=== PATIENT | female | born 1955 | race Caucasian/White ===

== ENCOUNTER → 2018-04-27 | Outpatient (CLI) | payer OTHER ==
--- NOTE | 2018-04-27 10:25 | MR ---
EXAMINATION TYPE: MR lumbar spine wo con DATE OF EXAM: 04/27/2018 COMPARISON: NONE HISTORY: BACK PAIN, LT LEG NEUROPATHY TECHNIQUE: T1 and T2 axial and sagittal images of the lumbar spine are submitted. FINDINGS: There is no abnormal signal seen within the visualized spinal cord or paraspinal soft tissu es. At L1-2 there is vertebral body hemangioma of L2. There is broad-based right paracentral and lateral disc bulging with mild effacement of thecal sac and mild right-sided foraminal encroachment. No Canal stenosis. At L2-3 there is vertebral body hemangioma of L3. There is disc desiccation and facet arthropathy but no canal stenosis. Neural foramina remain patent. At L3-4 there is disc desiccation with circumferential disc bulging greater laterally to left with mi ld left foraminal encroachment. Facet arthropathy and ligamentum flavum hypertrophy noted. At L4-5 there is grade 1 anterolisthesis with severe facet arthropathy, ligamentum flavum hypertrophy and circumferential disc bulging resulting in severe canal stenosis and moderate foraminal encroachm ent greater on the right At L5-S1 there is severe facet arthropathy. Diminutive spinal canal. No foraminal encroachment. No fo rivera herniation. Large hemangioma of the S1 segment. Lateral recess stenosis noted bilaterally. There is multilevel mild degenerative disc disease and hypertrophic spurring. IMPRESSION: 1. Multilevel degenerative disc disease and facet arthropathy with grade 1 anterolisthesis L4 on L5 r esulting in severe canal stenosis and bilateral foraminal encroachment. 2. Hypertrophic changes and disc bulging L1-2 and L3-4 result in foraminal encroachment as discussed above.
== END | disposition home or self-care (01) ==
LOC: RADMRIMAIN 09:27
PROVIDERS: ATTEND Internal Medicine
DX: M48.061 Spinal stenosis, lumbar region without neurogenic claudication (principal); M43.16 Spondylolisthesis, lumbar region; M51.26 Other intervertebral disc displacement, lumbar region; M51.36 Other intervertebral disc degeneration, lumbar region; M46.96 Unspecified inflammatory spondylopathy, lumbar region; M53.86 Other specified dorsopathies, lumbar region
CPT/HCPCS: 72148

== ENCOUNTER 2019-08-02 14:49 | Inpatient (IN) | payer OTHER ==
[2019-08-02] MEDS ORDERED: NITROGLYCERIN OINT 1 INCH/GM PACKET TOPICAL STA (15:39)
[2019-08-02] MEDS ORDERED: ASPIRIN 81 MG PO STA (15:39)
--- NOTE | 2019-08-02 15:44 | ED ---
General Adult HPI - General Chief complaint: Chest Pain Stated complaint: Chest Pain, SOB Time Seen by Provider: 08/02/19 15:00 Source: patient, RN notes reviewed, old records reviewed Mode of arrival: ambulatory Limitations: no limitations - History of Present Illness Initial comments: This is a 63-year-old female presents emergency department with past medical history significant for coronary artery stent. Patient also has a history of high blood pressure and high cholesterol. Tums in today because she's been experiencing chest pain or shortness of breath anytime she exerts of per patient states been ongoing for a couple of weeks. Patient states it feels exactly like it did before when she needed a stent. Patient states she went to her primary medical care doctor's office and they told to come in here immediately. Patient denies any chest pain currently. Patient denies any recent fever chills or cough. Patient denies any lightheadedness dizziness or near syncopal episode. Patient denies any numbness or weakness. Patient denies any abdominal pain patient denies nausea vomiting diarrhea. Patient denies any swelling to the legs or calf tenderness. Patient denies any recent injury or trauma. - Related Data Home Medications Medication Instructions Recorded Confirmed Vortioxetine Hydrobromide 10 mg PO DAILY 01/03/15 11/26/15 [Trintellix] Simvastatin [Zocor] 20 mg PO DAILY 06/09/15 11/26/15 Famotidine [Pepcid] 20 mg PO DAILY 11/21/15 11/26/15 INSULIN LISPRO (HumaLOG) [HumaLOG] 0 units SQ TID PRN 11/21/15 11/26/15 Ibuprofen [Motrin] 800 mg PO DIRECTED PRN 11/21/15 11/26/15 Insulin Lispro Protamin/Lispro 20 unit SQ BID-W/MEALS 11/21/15 11/26/15 [humaLOG Mix 75-25 Kwikpen] Lisinopril-Hctz 10-12.5 mg 1 tab PO DAILY 11/21/15 11/26/15 [Zestoretic 10-12.5] Metamucil Powder 1 dose PO DAILY 11/21/15 11/26/15 Naproxen Sodium [Aleve] 220 mg PO BID PRN 11/21/15 11/26/15 Rescue Inhaler (Unknown Name) 1 dose INHALATION DIRECTED PRN 11/21/15 11/26/15 Previous Rx's Medication Instructions Recorded Aspirin 325 mg PO DAILY #30 tab 01/09/15 Atenolol [Tenormin] 100 mg PO BID tab 06/12/15 Allergies Allergy/AdvReac Type Severity Reaction Status Date / Time venom-honey bee Allergy Unknown Rash/Hives Verified 08/02/19 14:57 [bee venom (honey bee)] Review of Systems ROS Statement: Those systems with pertinent positive or pertinent negative responses have been documented in the HPI. ROS Other: All systems not noted in ROS Statement are negative. Past Medical History Past Medical History: Coronary Artery Disease (CAD), Chest Pain / Angina, Diabetes Mellitus, Hyperlipidemia, Hypertension, Osteoarthritis (OA) Additional Past Medical History / Comment(s): SEASONAL ALLERGIES, STATES SHE WAS TOLD START OF CIRRHOSIS & PANCREATITIS & QUIT DRINKING ALCOHOL., STATES FREQUENT DIARRHEA, CRAMPING WITH GAS PAINS. History of Any Multi-Drug Resistant Organisms: None Reported Past Surgical History: Appendectomy, Heart Catheterization With Stent, Hysterectomy, Tonsillectomy Additional Past Surgical History / Comment(s): 01/08/15 PTCA with stent placement. Past Anesthesia/Blood Transfusion Reactions: No Reported Reaction Additional Past Anesthesia/Blood Transfusion Reaction / Comment(s): Pt has never recieved blood. Date of Last Stent Placement:: 01/08/15 Past Psychological History: Anxiety, Depression Smoking Status: Never smoker Past Alcohol Use History: Occasional Past Drug Use History: Marijuana - Past Family History Father Additional Family Medical History / Comment(s): HEART DISEASE Mother Family Medical History: Cancer Additional Family Medical History / Comment(s): UTERINE Brother(s) Family Medical History: Cancer Additional Family Medical History / Comment(s): BLADDER General Exam - General Exam Comments Initial Comments: GENERAL: Patient is well-developed and well-nourished. Patient is nontoxic and well- hydrated and is in no acute distress. ENT: Neck is soft and supple. No significant lymphadenopathy is noted. Oropharynx is clear. Moist mucous membranes. Neck has full range of motion without eliciting any pain. EYES: The sclera were anicteric and conjunctiva were pink and moist. Extraocular movements were intact and pupils were equal round and reactive to light. Eyelids were unremarkable. PULMONARY: Unlabored respirations. Good breath sounds bilaterally. No audible rales rhonchi or wheezing was noted. CARDIOVASCULAR: There is a regular rate and rhythm without any murmurs gallops or rubs. ABDOMEN: Soft and nontender with normal bowel sounds. No palpable organomegaly was noted. There is no palpable pulsatile mass. SKIN: Skin is clear with no lesions or rashes and otherwise unremarkable. NEUROLOGIC: Patient is alert and oriented x3. Cranial nerves II through XII are grossly intact. Motor and sensory are also intact. Normal speech, volume and content. Symmetrical smile. MUSCULOSKELETAL: Normal extremities with adequate strength and full range of motion. No lower extremity swelling or edema. No calf tenderness. LYMPHATICS: No significant lymphadenopathy is noted PSYCHIATRIC: Normal psychiatric evaluation. Limitations: no limitations Course Vital Signs 08/02/19 08/02/19 14:55 15:50 Temperature 97.5 F L Pulse Rate 73 73 Respiratory 20 18 Rate Blood Pressure 168/68 139/79 O2 Sat by Pulse 99 97 Oximetry Medical Decision Making - Medical Decision Making EKG shows a normal sinus rhythm at 72 bpm KS interval 180 QRSs 80 QT interval is 436 QTC is 477. Patient's EKG shows no ST segment elevation or depression or T wave abnormalities are noted. Patient's chest x-ray showed no acute normalities. Patient's hemoglobin was 9.1. I will back in to reinterview the patient she stated she did have some black stools recently. So I did a rectal exam. I spoke with Dr. Painter she agreed to admit the patient admitted the patient I held heparin secondary to black stools and a low hemoglobin. - Lab Data Result diagrams: 08/02/19 15:40 08/02/19 15:40 Lab Results 08/02/19 08/02/19 08/02/19 Range/Units 15:40 15:40 15:40 WBC 3.6 L (3.8-10.6) k/uL RBC 3.11 L (3.80-5.40) m/uL Hgb 9.1 L (11.4-16.0) gm/dL Hct 28.0 L (34.0-46.0) % MCV 90.0 (80.0-100.0) fL MCH 29.3 (25.0-35.0) pg MCHC 32.5 (31.0-37.0) g/dL RDW 14.2 (11.5-15.5) % Plt Count 172 (150-450) k/uL Hypochromasia Marked Poikilocytosis Marked PT 9.7 (9.0-12.0) sec INR 0.9 (<1.2) APTT 22.2 (22.0-30.0) sec Sodium 139 (137-145) mmol/L Potassium 4.3 (3.5-5.1) mmol/L Chloride 107 (98-107) mmol/L Carbon Dioxide 22 (22-30) mmol/L Anion Gap 10 mmol/L BUN 21 H (7-17) mg/dL Creatinine 0.75 (0.52-1.04) mg/dL Est GFR (CKD-EPI)AfAm >90 (>60 ml/min/1.73 sqM) Est GFR (CKD-EPI)NonAf 85 (>60 ml/min/1.73 sqM) Glucose 183 H (74-99) mg/dL Calcium 9.1 (8.4-10.2) mg/dL Magnesium 1.9 (1.6-2.3) mg/dL Total Bilirubin 0.6 (0.2-1.3) mg/dL AST 61 H (14-36) U/L ALT 41 (9-52) U/L Alkaline Phosphatase 70 (38-126) U/L Troponin I (0.000-0.034) ng/mL Total Protein 6.4 (6.3-8.2) g/dL Albumin 3.9 (3.5-5.0) g/dL 08/02/19 Range/Units 15:40 WBC (3.8-10.6) k/uL RBC (3.80-5.40) m/uL Hgb (11.4-16.0) gm/dL Hct (34.0-46.0) % MCV (80.0-100.0) fL MCH (25.0-35.0) pg MCHC (31.0-37.0) g/dL RDW (11.5-15.5) % Plt Count (150-450) k/uL Hypochromasia Poikilocytosis PT (9.0-12.0) sec INR (<1.2) APTT (22.0-30.0) sec Sodium (137-145) mmol/L Potassium (3.5-5.1) mmol/L Chloride (98-107) mmol/L Carbon Dioxide (22-30) mmol/L Anion Gap mmol/L BUN (7-17) mg/dL Creatinine (0.52-1.04) mg/dL Est GFR (CKD-EPI)AfAm (>60 ml/min/1.73 sqM) Est GFR (CKD-EPI)NonAf (>60 ml/min/1.73 sqM) Glucose (74-99) mg/dL Calcium (8.4-10.2) mg/dL Magnesium (1.6-2.3) mg/dL Total Bilirubin (0.2-1.3) mg/dL AST (14-36) U/L ALT (9-52) U/L Alkaline Phosphatase (38-126) U/L Troponin I <0.012 (0.000-0.034) ng/mL Total Protein (6.3-8.2) g/dL Albumin (3.5-5.0) g/dL Disposition Clinical Impression: Unstable angina pectoris, Anemia Disposition: ADMITTED IP TO THIS HOSP Referrals: Josemanuel Brady DO [Primary Care Provider] - 1-2 days Time of Disposition: 16:51
[2019-08-02 15:58] LABS: HGB 9.1 gm/dL (11.4-16.0); Hypochromasia Marked; MCH 29.3 pg (25.0-35.0); MCHC 32.5 g/dL (31.0-37.0); Platelet Count 172 k/uL (150-450); Poikilocytosis Marked; RBC 3.11 m/uL (3.80-5.40); RDW 14.2 % (11.5-15.5); WBC 3.6 k/uL (3.8-10.6)
[2019-08-02 16:06] LABS: INR 0.9 (<1.2)
[2019-08-02 16:07] LABS: Partial Thromboplastin Time 22.2 sec (22.0-30.0); Prothrombin Time 9.7 sec (9.0-12.0)
[2019-08-02 16:08] LABS: ALT 41 U/L (9-52); AST 61 U/L (14-36); African American GFR (CKD) >90 (>60 ml/min/1.73 sqM); Albumin 3.9 g/dL (3.5-5.0); Alkaline Phosphatase 70 U/L (38-126); Anion Gap 10 mmol/L; Blood Urea Nitrogen 21 mg/dL (7-17); Calcium 9.1 mg/dL (8.4-10.2); Carbon Dioxide 22 mmol/L (22-30); Chloride 107 mmol/L (98-107); Glucose 183 mg/dL (74-99); Magnesium 1.9 mg/dL (1.6-2.3); Potassium 4.3 mmol/L (3.5-5.1); Sodium 139 mmol/L (137-145); Total Bilirubin 0.6 mg/dL (0.2-1.3); Total Protein 6.4 g/dL (6.3-8.2)
--- NOTE | 2019-08-02 16:19 | XR ---
EXAMINATION TYPE: XR chest 2V DATE OF EXAM: 08/02/2019 COMPARISON: NONE HISTORY: Chest pain and increasing shortness of breath with exercise. TECHNIQUE: Frontal and lateral views of the chest are obtained. FINDINGS: There is some chronic parenchymal change without suspicious focal air space opacity, pleur al effusion, or pneumothorax seen. The cardiac silhouette size is enlarged with atherosclerotic and ectatic aorta. The osseous structures are demineralized. Underlying scoliosis is present. IMPRESSION: Cardiomegaly and chronic parenchymal change without acute pulmonary process.
[2019-08-02 17:05] LABS: Eosinophils # (M) 0.11 k/uL (0-0.7); Lymphocytes # (M) 1.01 k/uL (1.0-4.8); Monocytes # (M) 0.25 k/uL (0-1.0); Neutrophils % (M) 62 %; Nucleated Red Blood Cells 0 /100 WBC (0-0); Total Cells Counted 100
[2019-08-02] MEDS ORDERED: NITROGLYCERIN SL TABS 0.4 MG TAB SUBLINGUAL PRN (17:07)
[2019-08-02] MEDS ORDERED: NALOXONE 0.4 MG/ML 1 ML VIAL IV PRN (18:02)
[2019-08-02] MEDS ORDERED: ACETAMINOPHEN TAB 325 MG TAB PO PRN (18:02)
[2019-08-02] MEDS ORDERED: HEPARIN SODIUM,PORCINE 5,000 UNIT/ML 1 ML VIAL IV STA (18:02)
[2019-08-02] MEDS ORDERED: HYDROcodone/APAP 5-325MG 1 EACH TAB PO PRN (18:02)
[2019-08-02] MEDS ORDERED: ONDANSETRON 4 MG/2 ML VIAL IVP PRN (18:02)
[2019-08-02] MEDS ORDERED: ALBUTEROL NEBULIZED 2.5 MG/3 ML INHALATION PRN (18:04)
[2019-08-02] MEDS ORDERED: DICLOFENAC SODIUM GEL 100 GM TUBE TOPICAL PRN (18:04)
[2019-08-02] MEDS ORDERED: HEPARIN SOD,PORK IN 0.45% NACL 25,000 UNIT in 0.45% NACL 1 250ML.BAG IV SCH (18:15)
--- NOTE | 2019-08-02 18:27 | P.HPIM ---
History of Present Illness H&P Date: 08/02/19 Chief Complaint: Chest pain Patient is a 63 yo CF with a past medical history of atherosclerotic coronary artery disease with prior stent to LAD in 2015, hypertension, diabetes that is brittle with the last known hemoglobin A1c near 7 per patient, dyslipidemia, arthritis, and COPD presented to the ER at the direction of her primary care provider, Dr. Brady, for chest pain. In the emergency department she underwent an extensive evaluation. On arrival she was slightly hypertensive with a blood pressure 168/68. Initial laboratory analysis showed hemoglobin of 9.1, white blood cell count 3.6, and a negative troponin. EKG shows normal sinus rhythm at a rate of [address]-T wave changes. R1 80, QRS 80, QTC 477. She was placed in observation for unstable angina. She was started on a heparin drip, aspirin, and her statin and beta mirlande were winsome nued. Cardiology was consulted. Patient seen and examined at bedside in the emergency department. She reports that over the last several months she has been having chest pain and shortness of breath with exertion. This has been increasing in nature. Over the last 1 week it has gotten significantly more frequent and intense. She reports that with exertion she starts becoming exceedingly short of breath and then has a bandlike feeling around her chest that is centered in the left upper chest. She states that she is getting this with her simple activities of daily living such as vacuuming or doing dishes. During these episodes she becomes short of breath, has chest pain, feels anxious, and has a racing heart. During some of the episodes she will become diaphoretic, anxious, and dizzy. She has chronic numbness and tingling in her left upper extremity due to her prior back injury and she is unable to definitively say whether or not this has worsened. She states she treats this by resting and using meditation practices. She also reports that sometimes at night when she lays flat she feels short of breath. She denies any recent lower extremity edema. The last time she saw diesel instructor was approximately 4 years ago after her heart For a one-time follow-up. She reports of the chest pain lasts until she is able to sit down and meditate. She also reports that 2-3 times over the last 60 days she has had episodes of abdominal cramping with constipation. When she takes that she has noted black stools twice. She's been using intermittently milk of magnesia her when she has constipation but then Pepto-Bismol for when she has diarrhea. She thinks she has irritable bowel syndrome as she frequently is offloading between constipation and diarrhea. She denies any bright red blood per rectum and she has not had any of these episodes in the last week. She reports that she has seen Dr. Toussaint in the past and had a colonoscopy which was good. Today when she saw Dr. Brady she was not asking for referrals to both cardiology and GI but he asked her to come to the emergency department. She reports that her father had heart disease and early age but is unsure if he had actual heart attack. She reports that her mother was diagnosed with heart disease at age 94. She reports a family history of Crohn's disease. Review of Systems Pertinent positives and negatives as discussed in HPI, a complete review of systems was performed and all other systems are negative. Past Medical History Past Medical History: Coronary Artery Disease (CAD), Chest Pain / Angina, Diabetes Mellitus, Hyperlipidemia, Hypertension, Osteoarthritis (OA) Additional Past Medical History / Comment(s): SEASONAL ALLERGIES, STATES SHE WAS TOLD START OF CIRRHOSIS, PANCREATITIS, STATES FREQUENT DIARRHEA, CRAMPING WITH GAS PAINS. History of Any Multi-Drug Resistant Organisms: None Reported Past Surgical History: Appendectomy, Heart Catheterization With Stent, Hysterectomy, Tonsillectomy Additional Past Surgical History / Comment(s): 01/08/15 PTCA with stent placement. Past Anesthesia/Blood Transfusion Reactions: No Reported Reaction Additional Past Anesthesia/Blood Transfusion Reaction / Comment(s): Pt has never recieved blood. Date of Last Stent Placement:: 01/08/15 Past Psychological History: Anxiety, Depression Smoking Status: Never smoker Past Alcohol Use History: Occasional Additional History: Lives with her boyfriend, no assistive devices at baseline. - Past Family History Father Additional Family Medical History / Comment(s): HEART DISEASE Mother Family Medical History: Cancer Additional Family Medical History / Comment(s): UTERINE Brother(s) Family Medical History: Cancer Additional Family Medical History / Comment(s): BLADDER Medications and Allergies Home Medications Medication Instructions Recorded Confirmed Type Vortioxetine Hydrobromide 10 mg PO DAILY 01/03/15 08/02/19 History [Trintellix] Atenolol [Tenormin] 100 mg PO BID tab 06/12/15 08/02/19 Rx Famotidine [Pepcid] 20 mg PO DAILY 11/21/15 08/02/19 History Ibuprofen [Motrin] 800 mg PO TID PRN 11/21/15 08/02/19 History Lisinopril-Hctz 10-12.5 mg 1 tab PO DAILY 11/21/15 08/02/19 History [Zestoretic 10-12.5] Albuterol Inhaler [Ventolin Hfa 2 puff INHALATION RT-QID PRN 08/02/19 08/02/19 History Inhaler] Bismuth Subsalicylate 262 mg PO Q4H PRN 08/02/19 08/02/19 History [Pepto-Bismol] Diclofenac Sodium [Voltaren Gel] 1 applic TOPICAL DAILY PRN 08/02/19 08/02/19 History Ergocalciferol [Vitamin D2] 50,000 unit PO LYLES 08/02/19 08/02/19 History Insulin Glargine,Hum.rec.anlog 20 unit SQ DAILY 08/02/19 08/02/19 History [Basaglar Kwikpen U-100] Insulin Regular [HumuLIN R] See Protocol SQ ACHS 08/02/19 08/02/19 History Magnesium Hydroxide [Milk of 2,400 mg PO DAILY PRN 08/02/19 08/02/19 History Magnesia] Naproxen [Naprosyn] 375 mg PO TID 08/02/19 08/02/19 History metFORMIN HCL [Glucophage] 500 mg PO BID 08/02/19 08/02/19 History Allergies Allergy/AdvReac Type Severity Reaction Status Date / Time venom-honey bee Allergy Unknown Rash/Hives Verified 08/02/19 16:49 [bee venom (honey bee)] [id number] Reductase AdvReac MUSCLE Verified 08/02/19 16:49 Inhibitor PAIN/JOINT PAIN Physical Exam Osteopathic Statement: *. No significant issues noted on an osteopathic structural exam other than those noted in the History and Physical/Consult. Vitals: Vital Signs Temp Pulse Resp BP Pulse Ox 08/02/19 17:51 98.0 F 86 18 170/85 98 08/02/19 16:30 84 18 158/67 96 08/02/19 15:50 73 18 139/79 97 08/02/19 14:55 97.5 F L 73 20 168/68 99 Intake and Output 08/02/19 08/02/19 08/02/19 06:59 14:59 22:59 Other: Weight 97.522 kg General: non toxic, no distress, appears at stated age, appears older than stated age, obese Derm: no unusual rashes/lesions no unusual ecchymoses, warm, dry Head: atraumatic, normocephalic, symmetric Eyes: EOMI, no lid lag, anicteric sclera, pupils equal round reactive to light ENT: Nose and ears atraumatic, no thrush, no pharyngeal erythema Neck: No thyromegaly, no cervical lymphadenopathy, trachea midline, supple Mouth: no lip lesion, mucus membranes moist Cardiovascular: S1S2 reg, no murmur, positive posterior tibial pulse bilateral, no edema, capillary refill less than 2 seconds Lungs: CTA bilateral, no rhonchi, no rales , no accessory muscle use Abdominal: soft, nontender to palpation, no guarding, no appreciable organomegaly, normal bowel sounds Ext: no gross muscle atrophy, muscle strength 5 out of 5 in all 4 extremities grossly, no contractures, Neuro: CN II-XI grossly intact, light touch intact all 4 extremities, finger to nose within normal limits, Psych: Alert, oriented, appropriate affect Results CBC & Chem 7: 08/02/19 15:40 08/02/19 15:40 Labs: Abnormal Lab Results - Last 24 Hours (Table) 08/02/19 08/02/19 Range/Units 15:40 15:40 WBC 3.6 L (3.8-10.6) k/uL RBC 3.11 L (3.80-5.40) m/uL Hgb 9.1 L (11.4-16.0) gm/dL Hct 28.0 L (34.0-46.0) % BUN 21 H (7-17) mg/dL Glucose 183 H (74-99) mg/dL AST 61 H (14-36) U/L Chest x-ray: report reviewed Thrombosis Risk Factor Assmnt - DVT/VTE Prophylaxis DVT/VTE Prophylaxis: Pharmacologic Prophylaxis ordered Assessment and Plan Assessment: Unstable angina -Heparin drip, aspirin, beta mirlande - hold statin due to hx of myopathy -Cardiology consult, nothing by mouth after midnight. -Telemetry -Nitro as needed for chest pain. Currently chest pain-free -Hold all NSAID products Hypertensive urgency -Resume home atenolol, diuretic and SINDHU inhibitor on hold in case patient requires cath in the morning. -Follow blood pressures Diabetes mellitus type 2 insulin requiring -Hold long-acting a.m. insulin secondary to nothing by mouth status -Sliding-scale insulin -Check hemoglobin A1c Dyslipidemia -Check lipid profile -Statin therapy Arthritis -Hold all NSAIDs -As needed Ideal -Tylenol COPD without exacerbation - prn albuterol The patient is placed in observation with an anticipated less than 2 midnight stay for evaluation of chest pain. Surrogate decision-maker: Significant other Jermaine Rivera CODE STATUS:Full DVT prophylaxis: on heparin gtt Discussed with: patient, nursing, ED physician Anticipated discharge date: 24-[address]: home A total of 55 minutes was spent on the care of this complex patient more than 50% of the time was spent in counseling and care coordination.
[2019-08-02 20:06] LABS: Glucose,Whole Blood 206 mg/dL (75-99)
[2019-08-02] MEDS: ATENOLOL 50 MG TAB PO SCH (21:41)
[2019-08-02] MEDS: INSULIN ASPART (NovoLOG) 100 UNIT/ML VIAL SQ SCH (21:44)
[2019-08-02 22:55] LABS: Basophils # (A) 0.1 k/uL (0-0.2); Basophils % (A) 2 %; Eosinophils # (A) 0.2 k/uL (0-0.7); Eosinophils % (A) 5 %; HCT 26.6 % (34.0-46.0); HGB 8.7 gm/dL (11.4-16.0); Hypochromasia Marked; Lymphocytes % (A) 32 %; MCH 29.3 pg (25.0-35.0); MCHC 32.9 g/dL (31.0-37.0); MCV 89.1 fL (80.0-100.0); Monocytes # (A) 0.3 k/uL (0-1.0); Monocytes % (A) 9 %; Neutrophils # (A) 1.6 k/uL (1.3-7.7); Neutrophils % (A) 50 %; Platelet Count 158 k/uL (150-450); Poikilocytosis Marked; RBC 2.98 m/uL (3.80-5.40); RDW 14.3 % (11.5-15.5); WBC 3.2 k/uL (3.8-10.6)
[2019-08-03] MEDS: NITROGLYCERIN OINT 1 INCH/GM PACKET TOPICAL SCH ×2 (00:08→06:24)
[2019-08-03 06:42] LABS: Glucose,Whole Blood 150 mg/dL (75-99)
[2019-08-03 08:21] LABS: African American GFR (CKD) >90 (>60 ml/min/1.73 sqM); Anion Gap 6 mmol/L; Blood Urea Nitrogen 16 mg/dL (7-17); Calcium 8.7 mg/dL (8.4-10.2); Carbon Dioxide 24 mmol/L (22-30); Chloride 108 mmol/L (98-107); Cholesterol 175 mg/dL (<200); Glucose 142 mg/dL (74-99); HDL Cholesterol 40 mg/dL (40-60); LDL Cholesterol,Calculated 103 mg/dL (0-99); Potassium 4.2 mmol/L (3.5-5.1); Sodium 138 mmol/L (137-145); Triglycerides 161 mg/dL (<150)
[2019-08-03] MEDS ORDERED: ASPIRIN 325 MG TAB PO SCH (09:00)
[2019-08-03] MEDS ORDERED: ASPIRIN 81 MG PO SCH (09:00)
[2019-08-03] MEDS ORDERED: FAMOTIDINE 20 MG TAB PO SCH (09:00)
--- NOTE | 2019-08-03 09:52 | P.CRDCN ---
History of Present Illness History of present illness: HISTORY OF PRESENTING ILLNESS This is a pleasant 63-year-old female past medical history significant for coronary artery disease status post stent placement to the LAD 2014, hyperte nsion, dyslipidemia, diabetes mellitus and arthritis. She presented with exertional chest pain and shortness of breath. She does not follows in the office with anyone since 2016. We have been asked to see him in consultation for chest pain. She states for the previous 2 months she has been experiencing exertional shortness of breath and chest discomfort. It has been getting progressively worse over the previous 2 months. She states initially she would feel a tight sensation in the chest and short of breath while she would walk to her mailbox. Then most recently she experiences discomfort with simple activities such as walking up and down 2-3 stairs or vacuuming. She also has been experiencing increased fatigue. She states for the previous 6 weeks she has noticed 3 different episodes of jet black stools. She is scheduled to follow-up as an outpatient with Dr. Louis but has been unable to make her appointment secondary to insurance difficulties. DIAGNOSTICS EKG reveals sinus mechanism with no acute ST or T wave abnormalities noted. Chest xray negative for an acute cardiopulmonary process. Laboratory reviewed, hemoglobin 8.7, WBC 3.2, platelets 158, sodium 138, potassium 4.2, creatinine 0.72, cardiac enzymes negative 3, LDL 103, HDL 40.. Current cardiac medications include along 100 mg twice a day, lisinopril/HCTZ 10/12.5 mg daily. Cardiac catheterization in 2015 revealed an 80% stenosis of the mid LAD, she underwent successful stent placement at that time. Most recent echocardiogram obtained in 2015 revealed preserved LV systolic function with normal ejection fraction and no wall motion abnormalities. REVIEW OF SYSTEMS At the time of my exam: CONSTITUTIONAL: Denies fever or chills. CARDIOVASCULAR: Denies chest pain, shortness of breath, orthopnea, PND or p alpitations. RESPIRATORY: Denies cough. GASTROINTESTINAL: Denies abdominal pain, diarrhea, constipation, nausea or vomiting. MUSCULOSKELETAL: Denies myalgias. NEUROLOGIC: Denies numbness, tingling or weakness. ENDOCRINE: Denies fatigue, weight change, polydipsia or polyurina. GENITOURINARY: Denies burning, hematuria or urgency with micturation. HEMATOLOGIC: Denies history of anemia or bleeding. PHYSICAL EXAMINATION Blood pressure 135/80 heart rate 73 afebrile and maintaining oxygen saturaiton on room air. CONSTITUTIONAL: No apparent distress. HEENT: Head is normocephalic. Pupils are equal, round. Sclerae anicteric. Mucous membranes of the mouth are moist. No JVD. No carotid bruit. CHEST EXAMINATION: Lungs are clear to auscultation. No chest wall tenderness is noted on palpation or with deep breathing. HEART EXAMINATION: Regular rate and rhythm. S1, S2 heard. No murmurs, gallops or rub. ABDOMEN: Soft, nontender. Positive bowel sounds. EXTREMITIES: 2+ peripheral pulses, no lower extremity edema and no calf tenderness. NEUROLOGIC EXAMINATION: Patient is awake, alert and oriented x3. ASSESSMENT Chest pain, symptoms suggestive of unstable angina but also could be related to anemia. Anemia with black stools and heavy NSAID use History of coronary artery disease status post stent placement to the LAD in 2014 Hypertension Dyslipidemia Diabetes mellitus Arthritis PLAN An acute coronary event has been ruled out. Discontinue heparin infusion and nitroglycerin paste. Symptoms could be related to either anemia or unstable angina. Recommended GI evaluation. We will treat her medically from a cardiac perspective at this time pending a GI evaluation considering cardiac catheterization would require heparin. Obtain 2-D echocardiogram and Doppler study to assess cardiac structure and function. Initiated on Imdur 30 mg daily. Continue low-dose aspirin 81 mg daily. Patient is intolerant to statins. Continue atenolol and Zestoretic as previously ordered. Thank you kindly for this consultation. Nurse Practitioner note has been reviewed, I agree with a documented findings and plan of care. Patient was seen and examined. Past Medical History Past Medical History: Coronary Artery Disease (CAD), Chest Pain / Angina, Diabetes Mellitus, Hyperlipidemia, Hypertension, Osteoarthritis (OA) Additional Past Medical History / Comment(s): SEASONAL ALLERGIES, STATES SHE WAS TOLD START OF CIRRHOSIS, PANCREATITIS, STATES FREQUENT DIARRHEA, CRAMPING WITH GAS PAINS. History of Any Multi-Drug Resistant Organisms: None Reported Past Surgical History: Appendectomy, Heart Catheterization With Stent, Hysterectomy, Tonsillectomy Additional Past Surgical History / Comment(s): 01/08/15 PTCA with stent placement. Past Anesthesia/Blood Transfusion Reactions: No Reported Reaction Additional Past Anesthesia/Blood Transfusion Reaction / Comment(s): Pt has never recieved blood. Date of Last Stent Placement:: 01/08/15 Past Psychological History: Anxiety, Depression Smoking Status: Never smoker Past Alcohol Use History: Occasional - Past Family History Father Additional Family Medical History / Comment(s): HEART DISEASE Mother Family Medical History: Cancer Additional Family Medical History / Comment(s): UTERINE Brother(s) Family Medical History: Cancer Additional Family Medical History / Comment(s): BLADDER Medications and Allergies Home Medications Medication Instructions Recorded Confirmed Type Vortioxetine Hydrobromide 10 mg PO DAILY 01/03/15 08/02/19 History [Trintellix] Atenolol [Tenormin] 100 mg PO BID tab 06/12/15 08/02/19 Rx Famotidine [Pepcid] 20 mg PO DAILY 11/21/15 08/02/19 History Ibuprofen [Motrin] 800 mg PO TID PRN 11/21/15 08/02/19 History Lisinopril-Hctz 10-12.5 mg 1 tab PO DAILY 11/21/15 08/02/19 History [Zestoretic 10-12.5] Albuterol Inhaler [Ventolin Hfa 2 puff INHALATION RT-QID PRN 08/02/19 08/02/19 History Inhaler] Bismuth Subsalicylate 262 mg PO Q4H PRN 08/02/19 08/02/19 History [Pepto-Bismol] Diclofenac Sodium [Voltaren Gel] 1 applic TOPICAL DAILY PRN 08/02/19 08/02/19 History Ergocalciferol [Vitamin D2] 50,000 unit PO LYLES 08/02/19 08/02/19 History Insulin Glargine,Hum.rec.anlog 20 unit SQ DAILY 08/02/19 08/02/19 History [Basaglar Kwikpen U-100] Insulin Regular [HumuLIN R] See Protocol SQ ACHS 08/02/19 08/02/19 History Magnesium Hydroxide [Milk of 2,400 mg PO DAILY PRN 08/02/19 08/02/19 History Magnesia] Naproxen [Naprosyn] 375 mg PO TID 08/02/19 08/02/19 History metFORMIN HCL [Glucophage] 500 mg PO BID 08/02/19 08/02/19 History Allergies Allergy/AdvReac Type Severity Reaction Status Date / Time venom-honey bee Allergy Unknown Rash/Hives Verified 08/02/19 16:49 [bee venom (honey bee)] Ykfsxgc-Qqi-Svs Reductase AdvReac MUSCLE Verified 08/02/19 16:49 Inhibitor PAIN/JOINT PAIN Physical Exam Vitals: Vital Signs Temp Pulse Pulse Pulse Resp BP BP 08/03/19 07:15 97.8 F 73 18 135/80 08/03/19 04:00 98.0 F 67 17 08/02/19 23:43 98.2 F 68 16 08/02/19 18:13 97.7 F 79 08/02/19 17:51 98.0 F 86 18 170/85 08/02/19 16:30 84 18 158/67 08/02/19 15:50 73 18 139/79 08/02/19 14:55 97.5 F L 73 20 168/68 BP Pulse Ox 08/03/19 07:15 96 08/03/19 04:00 159/77 97 08/02/19 23:43 179/81 98 08/02/19 18:13 184/79 97 08/02/19 17:51 98 08/02/19 16:30 96 08/02/19 15:50 97 08/02/19 14:55 99 Intake and Output 08/02/19 08/03/19 08/03/19 22:59 06:59 14:59 Intake Total 64.141 Balance 64.141 Intake: Intake, IV Titration 64.141 Amount Heparin Sod,Pork in 0.45% 64.141 NaCl 25,000 unit In 0.45 % NaCl 1 250ml.bag @ 10. 25 UNITS/KG/HR 9.996 mls/ hr IV .Q24H [facility] Rx#: [id number] Other: Voiding Method Toilet Toilet # Voids 2 # Bowel Movements 2 Results 08/02/19 22:18 08/03/19 07:29 Cardiac Enzymes 08/02/19 08/02/19 08/02/19 Range/Units 15:40 15:40 21:21 AST 61 H (14-36) U/L Troponin I <0.012 <0.012 (0.000-0.034) ng/mL 08/03/19 Range/Units 03:21 AST (14-36) U/L Troponin I <0.012 (0.000-0.034) ng/mL Coagulation 08/02/19 08/03/19 Range/Units 15:40 00:43 PT 9.7 (9.0-12.0) sec APTT 22.2 44.3 H (22.0-30.0) sec CBC 08/02/19 08/02/19 Range/Units 15:40 22:18 WBC 3.6 L 3.2 L (3.8-10.6) k/uL RBC 3.11 L 2.98 L (3.80-5.40) m/uL Hgb 9.1 L 8.7 L (11.4-16.0) gm/dL Hct 28.0 L 26.6 L (34.0-46.0) % Plt Count 172 158 (150-450) k/uL Comprehensive Metabolic Panel 08/02/19 Range/Units 15:40 Sodium 139 (137-145) mmol/L Potassium 4.3 (3.5-5.1) mmol/L Chloride 107 (98-107) mmol/L Carbon Dioxide 22 (22-30) mmol/L BUN 21 H (7-17) mg/dL Creatinine 0.75 (0.52-1.04) mg/dL Glucose 183 H (74-99) mg/dL Calcium 9.1 (8.4-10.2) mg/dL AST 61 H (14-36) U/L ALT 41 (9-52) U/L Alkaline Phosphatase 70 (38-126) U/L Total Protein 6.4 (6.3-8.2) g/dL Albumin 3.9 (3.5-5.0) g/dL Current Medications Generic Name Dose Route Start Last Admin Trade Name Freq PRN Reason Stop Dose Admin Acetaminophen 650 mg 08/02/19 18:02 Tylenol Tab PO Q6HR PRN Mild Pain or Fever > 100.5 Hydrocodone Bitart/Acetaminophen 1 each 08/02/19 18:02 [place] 5-325 PO Q4HR PRN Moderate Pain Albuterol Sulfate 2.5 mg 08/02/19 18:04 Ventolin Nebulized INHALATION RT-QID PRN Shortness Of Breath Aspirin 325 mg 08/03/19 09:00 Aspirin PO DAILY KARRI Atenolol 100 mg 08/02/19 21:00 08/02/19 21:41 Tenormin PO 100 mg BID KARRI Administration Diclofenac Sodium 4 gm 08/02/19 18:04 Voltaren Gel TOPICAL DAILY PRN KNEE PAIN Ergocalciferol 50,000 unit 08/05/19 09:00 Vitamin D2 PO LYLES KARRI Famotidine 20 mg 08/03/19 09:00 Pepcid PO DAILY KARRI Heparin Sodium/Sodium Chloride 250 mls @ 9.996 mls/hr 08/02/19 18:15 08/03/19 01:13 25,000 unit/ Sodium Chloride IV 12.25 units/kg/hr .Q24H KARRI 11.946 mls/hr Titration Protocol 10.25 UNITS/KG/HR Insulin Aspart 0 unit 08/02/19 21:00 08/02/19 21:44 Novolog SQ 3 unit ACHS KARRI Administration Protocol Naloxone HCl 0.2 mg 08/02/19 18:02 Narcan IV Q2M PRN Opioid Reversal Nitroglycerin 0.4 mg 08/02/19 17:07 Nitrostat SUBLINGUAL Q5M PRN Chest Pain Nitroglycerin 1 inch 08/03/19 00:00 08/03/19 06:24 Nitro-Bid Oint TOPICAL Not Given Q6HR [facility] Ondansetron HCl 4 mg 08/02/19 18:02 Zofran IVP Q8HR PRN Nausea And Vomiting Vortioxetine 10 mg 08/03/19 09:00 Trintellix PO DAILY [facility] Intake and Output 08/02/19 08/03/19 08/03/19 22:59 06:59 14:59 Intake Total 64.141 Balance 64.141 Intake: Intake, IV Titration 64.141 Amount Heparin Sod,Pork in 0.45% 64.141 NaCl 25,000 unit In 0.45 % NaCl 1 250ml.bag @ 10. 25 UNITS/KG/HR 9.996 mls/ hr IV .Q24H [facility] Rx#: [id number] Other: Voiding Method Toilet Toilet # Voids 2 # Bowel Movements 2 08/02/19 22:18 08/02/19 15:40
[2019-08-03] MEDS: INSULIN ASPART (NovoLOG) 100 UNIT/ML VIAL SQ SCH ×4 (11:32→20:46)
[2019-08-03 11:48] LABS: Glucose,Whole Blood 125 mg/dL (75-99)
--- NOTE | 2019-08-03 12:00 | ECHOF ---
Referral Reason:cp, sob MEASUREMENTS -------- HEIGHT: 157.5 cm WEIGHT: 97.5 kg BP: RVIDd: 3.3 cm (< 3.3) IVSd: 1.2 cm (0.6 - 1.1) LVIDd: 4.6 cm (3.9 - 5.3) LVPWd: 1.4 cm (0.6 - 1.1) IVSs: 1.5 cm LVIDs: 3.6 cm LVPWs: 1.4 cm LA Diam: 5.3 cm (2.7 - 3.8) LAESV Index (A-L): 48.14 ml/m MV EXCURSION: 15.488 mm (> 18.000) MV EF SLOPE: 36 mm/s (70 - 150) EPSS: 0.3 cm MV E Jeremy: 1.25 m/s MV DecT: 265 ms MV A Jeremy: 1.37 m/s MV E/A Ratio: 0.91 RAP: 5.00 mmHg RVSP: 21.32 mmHg FINDINGS -------- Sinus rhythm. This was a technically adequate study. The left ventricular size is normal. There is mild concentric left ventricular hypertrophy. Overa ll left ventricular systolic function is normal with, an EF between 55 - 60 %. The right ventricle is normal in size. The left atrium is markedly dilated. LA is severely dilated >40 ml/m2 The right atrial size is normal. There is mild aortic valve sclerosis. There is no evidence of aortic regurgitation. The mitral valve leaflets are mild to moderately thickened. Moderate mitral annular calcification present. Uoax-xa-kwowgntu mitral regurgitation is present. The peak and mean MV gradients are 10 .78mmHg 2.87mmHg as measured by doppler. Mild tricuspid regurgitation present. Right ventricular systolic pressure is normal at < 35 mmHg. There is no evidence of pulmonary hypertension. There is no pulmonic regurgitation present. The aortic root size is normal. Echo free space represents a pericardial fat pad. CONCLUSIONS -------- 1. Sinus rhythm. 2. This was a technically adequate study. 3. The left ventricular size is normal. 4. There is mild concentric left ventricular hypertrophy. 5. Overall left ventricular systolic function is normal with, an EF between 55 - 60 %. 6. The right ventricle is normal in size. 7. The left atrium is markedly dilated. 8. LA is severely dilated >40 ml/m2 9. The right atrial size is normal. 10. There is mild aortic valve sclerosis. 11. Moderate mitral annular calcification present. 12. Kjnu-ty-cbaacext mitral regurgitation is present. 13. The peak and mean MV gradients are 10.78mmHg 2.87mmHg as measured by doppler. 14. Mild tricuspid regurgitation present. 15. Right ventricular systolic pressure is normal at < 35 mmHg. 16. There is no evidence of pulmonary hypertension. 17. There is no pulmonic regurgitation present. 18. The aortic root size is normal. 19. Echo free space represents a pericardial fat pad. REHABILITATION TEAM LEAD: Mahsa Sheldon RDCS
[2019-08-03] MEDS ORDERED: PROPOFOL 10 MG/ML 20 ML VIAL IV ONE (16:01)
[2019-08-03] MEDS ORDERED: IV FLUID CONTINUATION 1,000 ML IV ONE (16:18)
--- NOTE | 2019-08-03 16:27 | P.CONS ---
History of Present Illness - Reason for Consult Consult date: 08/03/19 Anemia, melena Requesting physician: Alexandra Painter - Chief Complaint Chest pain - History of Present Illness 63-year-old female with medical history significant for coronary artery disease, hypertension, diabetes mellitus, dyslipidemia and COPD who [facility] to complaints of chest pain. The patient reports chest pain and shortness of breath with exertion occurring over the past few months. This has worsened over the past week. She has been evaluated by the cardiology service would like the patient evaluated for anemia prior to proceeding with her workup. The patient was found to be anemic on presentation with a hemoglobin of 9.1 that fell to 8.7. She denies any signs or symptoms of GI bleeding with no hematemesis, hematochezia or change in bowel habits. She has intermittently seen dark stool over the past month but does report use of Pepto-Bismol. The patient also uses dual NSAID therapy with both Motrin and naproxen. She denies any prior GI bleed but did have a colonoscopy in 2016 significant for polypectomy. Stool testing was negative for blood. Review of Systems REVIEW OF SYSTEMS: CONSTITUTIONAL: Denies any fevers, chills, weight change. CARDIOVASCULAR: Denies any palpitations high or low blood pressures, but does report chest pain and shortness of breath on exertion RESPIRATORY: Denies any hemoptysis or cough. GENITOURINARY: No dysuria or hematuria. MUSCULOSKELETAL: No weakness reported. SKIN: Denies any new rashes or lesions, jaundice or pallor. PSYCHIATRIC: Denies any depression or anxiety. NEUROLOGY: Denies headache, denies any new focal deficits. EARS/NOSE/THROAT: No recent hearing change, congestion, nasal discharge or sore throat. EYES: No pain in eyes, discharge or change in vision. GASTROINTESTINAL: As per HPI. Past Medical History Past Medical History: Coronary Artery Disease (CAD), Chest Pain / Angina, Diabetes Mellitus, Hyperlipidemia, Hypertension, Osteoarthritis (OA) Additional Past Medical History / Comment(s): SEASONAL ALLERGIES, STATES SHE WAS TOLD START OF CIRRHOSIS, PANCREATITIS, STATES FREQUENT DIARRHEA, CRAMPING WITH GAS PAINS. History of Any Multi-Drug Resistant Organisms: None Reported Past Surgical History: Appendectomy, Heart Catheterization With Stent, Hysterectomy, Tonsillectomy Additional Past Surgical History / Comment(s): 01/08/15 PTCA with stent placement. Past Anesthesia/Blood Transfusion Reactions: No Reported Reaction Additional Past Anesthesia/Blood Transfusion Reaction / Comm: Pt has never recieved blood. Date of Last Stent Placement:: 01/08/15 Past Psychological History: Anxiety, Depression Smoking Status: Never smoker Past Alcohol Use History: Occasional - Past Family History Father Additional Family Medical History / Comment(s): HEART DISEASE Mother Family Medical History: Cancer Additional Family Medical History / Comment(s): UTERINE Brother(s) Family Medical History: Cancer Additional Family Medical History / Comment(s): BLADDER Medications and Allergies Home Medications Medication Instructions Recorded Confirmed Type Vortioxetine Hydrobromide 10 mg PO DAILY 01/03/15 08/02/19 History [Trintellix] Atenolol [Tenormin] 100 mg PO BID tab 06/12/15 08/02/19 Rx Famotidine [Pepcid] 20 mg PO DAILY 11/21/15 08/02/19 History Ibuprofen [Motrin] 800 mg PO TID PRN 11/21/15 08/02/19 History Lisinopril-Hctz 10-12.5 mg 1 tab PO DAILY 11/21/15 08/02/19 History [Zestoretic 10-12.5] Albuterol Inhaler [Ventolin Hfa 2 puff INHALATION RT-QID PRN 08/02/19 08/02/19 History Inhaler] Bismuth Subsalicylate 262 mg PO Q4H PRN 08/02/19 08/02/19 History [Pepto-Bismol] Diclofenac Sodium [Voltaren Gel] 1 applic TOPICAL DAILY PRN 08/02/19 08/02/19 History Ergocalciferol [Vitamin D2] 50,000 unit PO LYLES 08/02/19 08/02/19 History Insulin Glargine,Hum.rec.anlog 20 unit SQ DAILY 08/02/19 08/02/19 History [Basaglar Nimaikpen U-100] Insulin Regular [HumuLIN R] See Protocol SQ ACHS 08/02/19 08/02/19 History Magnesium Hydroxide [Milk of 2,400 mg PO DAILY PRN 08/02/19 08/02/19 History Magnesia] Naproxen [Naprosyn] 375 mg PO TID 08/02/19 08/02/19 History metFORMIN HCL [Glucophage] 500 mg PO BID 08/02/19 08/02/19 History Allergies Allergy/AdvReac Type Severity Reaction Status Date / Time venom-honey bee Allergy Unknown Rash/Hives Verified 08/02/19 16:49 [bee venom (honey bee)] Qopwadm-Mkt-Jje Reductase AdvReac MUSCLE Verified 08/02/19 16:49 Inhibitor PAIN/JOINT PAIN Physical Exam Vitals: Vital Signs Temp Pulse Pulse Pulse Resp BP BP 08/03/19 11:54 97.9 F 67 18 152/83 08/03/19 07:15 97.8 F 73 18 135/80 08/03/19 04:00 98.0 F 67 17 08/02/19 23:43 98.2 F 68 16 08/02/19 18:13 97.7 F 79 08/02/19 17:51 98.0 F 86 18 170/85 08/02/19 16:30 84 18 158/67 08/02/19 15:50 73 18 139/79 BP Pulse Ox 08/03/19 11:54 96 08/03/19 07:15 96 08/03/19 04:00 159/77 97 08/02/19 23:43 179/81 98 08/02/19 18:13 184/79 97 08/02/19 17:51 98 08/02/19 16:30 96 08/02/19 15:50 97 Intake and Output 08/03/19 08/03/19 08/03/19 06:59 14:59 22:59 Intake Total 64.141 Balance 64.141 Intake: Intake, IV Titration 64.141 Amount Heparin Sod,Pork in 0.45% 64.141 NaCl 25,000 unit In 0.45 % NaCl 1 250ml.bag @ 10. 25 UNITS/KG/HR 9.996 mls/ hr IV .Q24H [facility] Rx#: [id number] Other: Voiding Method Toilet Toilet # Voids 2 # Bowel Movements 2 Weight 97.522 kg On physical examination, patient appears comfortable in no apparent distress. HEAD: Normocephalic, atraumatic. EYES: No scleral icterus. No conjunctival injection. MOUTH: No lesions, tongue midline. NECK: Trachea midline, no gross abnormalities. CHEST: Clear to auscultation with no wheezing or rhonchi appreciated. HEART: Regular rate and rhythm. ABDOMEN: Soft, obese. Bowel sounds are positive. No organomegaly. No guarding or rigidity. EXTREMITIES: No pedal edema. SKIN: No rashes, no jaundice. NEUROLOGIC: Alert and oriented x3. No focal deficits. Results CBC & Chem 7: 08/02/19 22:18 08/03/19 07:29 Labs: Abnormal Lab Results - Last 24 Hours (Table) 08/02/19 08/02/19 08/02/19 Range/Units 15:40 15:40 20:05 WBC 3.6 L (3.8-10.6) k/uL RBC 3.11 L (3.80-5.40) m/uL Hgb 9.1 L (11.4-16.0) gm/dL Hct 28.0 L (34.0-46.0) % APTT (22.0-30.0) sec Chloride (98-107) mmol/L BUN 21 H (7-17) mg/dL Glucose 183 H (74-99) mg/dL POC Glucose (mg/dL) 206 H (75-99) mg/dL AST 61 H (14-36) U/L Triglycerides (<150) mg/dL LDL Cholesterol, Calc (0-99) mg/dL 08/02/19 08/03/19 08/03/19 Range/Units 22:18 00:43 06:40 WBC 3.2 L (3.8-10.6) k/uL RBC 2.98 L (3.80-5.40) m/uL Hgb 8.7 L (11.4-16.0) gm/dL Hct 26.6 L (34.0-46.0) % APTT 44.3 H (22.0-30.0) sec Chloride (98-107) mmol/L BUN (7-17) mg/dL Glucose (74-99) mg/dL POC Glucose (mg/dL) 150 H (75-99) mg/dL AST (14-36) U/L Triglycerides (<150) mg/dL LDL Cholesterol, Calc (0-99) mg/dL 08/03/19 08/03/19 08/03/19 Range/Units 07:29 07:29 11:47 WBC (3.8-10.6) k/uL RBC (3.80-5.40) m/uL Hgb (11.4-16.0) gm/dL Hct (34.0-46.0) % APTT 49.1 H (22.0-30.0) sec Chloride 108 H (98-107) mmol/L BUN (7-17) mg/dL Glucose 142 H (74-99) mg/dL POC Glucose (mg/dL) 125 H (75-99) mg/dL AST (14-36) U/L Triglycerides 161 H (<150) mg/dL LDL Cholesterol, Calc 103 H (0-99) mg/dL Chest x-ray: report reviewed (Chest x-ray significant for cardiomegaly and chronic parenchymal change) Assessment and Plan (1) Melena Narrative/Plan: 63-year-old female with multiple medical comorbidities secondary to complaints of weakness and shortness of breath on exertion. The patient has multiple chronic issues with pain control and reports taking dual NSAID therapy with Motrin in the proximal and at home. She's had intermittent episodes of melena over the past month. No prior history of peptic ulcer disease or prior EGD. She was found to have a normocytic anemia on presentation with stool testing ne gative for blood. Unknown etiology, likely multifactorial and multiple multiple comorbidities and normocytic nature however cannot rule out upper GI bleed from peptic ulcer disease, gastritis, esophagitis, AVM or other etiology. Current Visit: Yes Status: Acute Code(s): K92.1 - MELENA SNOMED Code(s): 0582141 (2) Anemia Current Visit: Yes Status: Acute Code(s): D64.9 - ANEMIA, UNSPECIFIED SNOMED Code(s): 843451683 Plan: Supportive care Stop famotidine daily Initiate Protonix 40 mg twice daily Nothing by mouth Monitor hemoglobin and hematocrit and transfuse as needed Avoid NSAID use Plan for EGD for further evaluation Thank you for allowing us to participate in the care of the patient
--- NOTE | 2019-08-03 16:30 | P.PCN ---
Date of Procedure: 08/03/19 Description of Procedure: BRIEF HISTORY: 63-year-old female with multiple medical comorbidities secondary to complaints of weakness and shortness of breath on exertion. The patient has multiple chronic issues with pain control and reports taking dual NSAID therapy with Motrin in the proximal and at home. She's had intermittent episodes of melena over the past month. No prior history of peptic ulcer disease or prior EGD. She was found to have a normocytic anemia on presentation with stool testing negative for blood. Unknown etiology, likely multifactorial and multiple multiple comorbidities and normocytic nature however cannot rule out upper GI bleed from peptic ulcer disease, gastritis, esophagitis, AVM or other etiology. PROCEDURE PERFORMED: Esophagogastroduodenoscopy with biopsy. PREOPERATIVE DIAGNOSIS: Anemia, melena. ESTIMATED BLOOD LOSS: Minimal. IV sedation per anesthesia. PROCEDURE: After informed consent was obtained, the patient was brought into the endoscopy unit. IV sedation was administered by Anesthesia under continuous monitoring. Initially the Olympus GIF-190 video endoscope was inserted into the mouth. Esophagus intubated without any difficulty. It was gradually advanced into the stomach and duodenum and carefully examined. The bulb and the second part of the duodenum appeared normal, with biopsies taken. The scope at this time was withdrawn to the stomach, adequately insufflated with air, and upon careful examination, mucosa of the antrum, body, cardia and the fundus multiple superficial nonbleeding ulcers were noted in the antrum of the stomach without active bleeding or high risk stigmata for rebleeding which were biopsied. The scope was then withdrawn into the esophagus. The GE junction was located at 39 cm from the incisors. The esophagus appeared normal. There were no erosions or ulcerations seen and the patient tolerated the procedure well. IMPRESSION: 1. Multiple nonbleeding antral ulcers, biopsied. 2. Duodenal biopsies. RECOMMENDATIONS: The findings of this examination were discussed with the patient and the medical team. Okay to resume diet. Continue Protonix 40 mg twice daily. Avoid NSAID use. Continue to monitor hemoglobin and transfuse as needed. Okay to proceed with cardiac evaluation. The gastroenterology service will stand by, please call us back with any questions or concerns.
[2019-08-03] MEDS: ATENOLOL 50 MG TAB PO SCH ×2 (16:38→20:18)
[2019-08-03] MEDS: ISOSORBIDE MONONITRATE ER 30 MG TAB.ER.24H PO SCH (16:38)
[2019-08-03] MEDS: VORTIOXETINE HYDROBROMIDE 10 MG TABLET PO SCH (16:38)
[2019-08-03] MEDS: LISINOPRIL-HCTZ 10-12.5 MG 1 EACH TAB PO SCH (16:38)
[2019-08-03 16:41] LABS: Glucose,Whole Blood 117 mg/dL (75-99)
[2019-08-03] MEDS: PANTOPRAZOLE 40 MG TABLET PO SCH (16:54)
[2019-08-03 17:07] LABS: Estimated Average Glucose 125.5
[2019-08-03] MEDS ORDERED: FERROUS SULFATE 325 MG TAB PO SCH (17:15)
[2019-08-03] MEDS: ATORVASTATIN 10 MG TAB PO SCH (18:15)
--- NOTE | 2019-08-03 18:26 | P.PN ---
Subjective Progress Note Date: 08/03/19 (delayed charting seen at 1145) Principal diagnosis: chest pain Patient is a 63 yo CF with a past medical history of atherosclerotic coronary artery disease with prior stent to LAD in 2015, hypertension, diabetes that is brittle with the last known hemoglobin A1c near 7 per patient, dyslipidemia, arthritis, and COPD presented to the ER at the direction of her primary care provider, Dr. Brady, for chest pain. In the emergency department she underwent an extensive evaluation. On arrival she was slightly hypertensive with a blood pressure 168/68. Initial laboratory analysis showed hemoglobin of 9.1, white blood cell count 3.6, and a negative troponin. EKG shows normal sinus rhythm at a rate of [address]-T wave changes. R1 80, QRS 80, QTC 477. She was placed in observation for unstable angina. She was started on a heparin drip, aspirin, and her statin and beta mirlande were continued. Cardiology was consulted. Cardiology saw the patient and stopped heparin gtt as they felt she was at high risk for GI bleed. Cardiology placed consult for GI for possible EGD due to concern that her pain is coming from a GI source. Patient seen and examined at bedside. She has not had any recurrent chest pain, but has not been up and walking. She denies any current abdominal pain. Had 3 bowel movements overnight. None that are dark or tarry and none with bright red blood. Objective - Vital Signs Vital signs: Vital Signs Temp 98.4 F 08/03/19 15:57 Pulse 73 08/03/19 15:57 Resp 18 08/03/19 15:57 BP 168/81 08/03/19 15:57 Pulse Ox 97 08/03/19 15:57 Intake & Output 08/02/19 08/03/19 08/03/19 18:59 06:59 18:59 Intake Total 64.141 200 Balance 64.141 200 Weight 97.522 kg 97.522 kg Intake: IV 200 Intake, IV Titration 64.141 Amount Heparin Sod,Pork in 0.45% 64.141 NaCl 25,000 unit In 0.45 % NaCl 1 250ml.bag @ 10. 25 UNITS/KG/HR 9.996 mls/ hr IV .Q24H KARRI Rx#: [id number] Other: Voiding Method Toilet Toilet # Voids 2 # Bowel Movements 2 - Exam General: non toxic, no distress, appears older than stated age Derm: warm, dry Head: atraumatic, normocephalic, symmetric Eyes: EOMI, no lid lag, anicteric sclera Mouth: no lip lesion, mucus membranes moist Cardiovascular: S1S2 reg, no murmur, positive posterior tibial pulse bilateral, Lungs: CTA bilateral, no rhonchi, no rales , no accessory muscle use Abdominal: soft, nontender to palpation, no guarding, no appreciable organomegaly Ext: no gross muscle atrophy, no edema, no contractures Neuro: CN II-XI grossly intact, no focal neuro deficits Psych: Alert, oriented, appropriate affect - Labs CBC & Chem 7: 08/02/19 22:18 08/03/19 07:29 Labs: Abnormal Lab Results - Last 24 Hours (Table) 08/02/19 08/02/19 08/03/19 Range/Units 20:05 22:18 00:43 WBC 3.2 L (3.8-10.6) k/uL RBC 2.98 L (3.80-5.40) m/uL Hgb 8.7 L (11.4-16.0) gm/dL Hct 26.6 L (34.0-46.0) % APTT 44.3 H (22.0-30.0) sec Chloride (98-107) mmol/L Glucose (74-99) mg/dL POC Glucose (mg/dL) 206 H (75-99) mg/dL Triglycerides (<150) mg/dL LDL Cholesterol, Calc (0-99) mg/dL 08/03/19 08/03/19 08/03/19 Range/Units 06:40 07:29 07:29 WBC (3.8-10.6) k/uL RBC (3.80-5.40) m/uL Hgb (11.4-16.0) gm/dL Hct (34.0-46.0) % APTT 49.1 H (22.0-30.0) sec Chloride 108 H (98-107) mmol/L Glucose 142 H (74-99) mg/dL POC Glucose (mg/dL) 150 H (75-99) mg/dL Triglycerides 161 H (<150) mg/dL LDL Cholesterol, Calc 103 H (0-99) mg/dL 08/03/19 08/03/19 Range/Units 11:47 16:40 WBC (3.8-10.6) k/uL RBC (3.80-5.40) m/uL Hgb (11.4-16.0) gm/dL Hct (34.0-46.0) % APTT (22.0-30.0) sec Chloride (98-107) mmol/L Glucose (74-99) mg/dL POC Glucose (mg/dL) 125 H 117 H (75-99) mg/dL Triglycerides (<150) mg/dL LDL Cholesterol, Calc (0-99) mg/dL Assessment and Plan Assessment: Unstable angina -Heparin drip discontinued -aspirin, beta mirlande, has agreed to low dose statin due to hx of myopathy -Cardiology consulted and discussed case with them multiple times throughout the day. Dr. Ness feels that the patient is to high risk for having GI bleed to proceed with cardiac cath at this time. He requested EGD prior. EGD preformed which shows multiple non bleeding antral ulcer with no high risk stigmata for rebleeding. At this point in time cardiology feels that it is in the patients best interest to be treated for her ulcers for several weeks before proceeding with stress test or cardiac cath. But they did want to start the patient on Imdur. -Telemetry -Hold all NSAID products Gastric ulcers - no NSAIDS - BID PPI Anemia - undetermined etiology - check Fe studies - outpatient GI Follow-up Hypertensive urgency -atenolol, ACEI, HCTZ -Follow blood pressures Diabetes mellitus type 2 insulin requiring -Resume levemir in AM -Sliding-scale insulin -A1c 6 Dyslipidemia -Statin therapy Arthritis -Hold all NSAIDs -As needed [place] -Tylenol COPD without exacerbation - prn albuterol DVT prophylaxis: ambulation Discussed with: patient, nursing, cardio Anticipated discharge date: in AM Anticipated discharge place: home A total of 25 minutes was spent on the care of this complex patient more than 50% of the time was spent in counseling and care coordination.
--- NOTE | 2019-08-03 20:35 | PN ---
PROGRESS NOTE This is a 63-year-old lady was seen by me this morning. She presented with symptoms of chest discomfort which do suggest the possibility of angina but hemoglobin was 8.7 and she has been taking a significant amount of nonsteroidal anti-inflammatory agents and also had some dark-colored stool and there is a question of abdominal epigastric discomfort as well. I suggested that we will continue the beta mirlande, add Imdur and defer any invasive intervention until we have an endoscopy. Endoscopy was indeed performed and there is evidence of multiple small gastric ulcers. I am recommending that she should be off nonsteroidals and she should only take aspirin 81 mg daily, continue atenolol of 100 mg b.i.d. and Imdur 30 mg a day was added and I will also add iron tablets. I will also check serum iron and TIBC as well in addition to ferritin levels. We will discharge her tomorrow on medical regimen with the understanding I will see her in the office in about 7-10 days and once these ulcers are healed or at least we have had a 2 week window without nonsteroidal anti-inflammatory agents, I will consider a stress test or cardiac cath. I discussed this matter with the patient and I also spoke to Dr. Painter. VERONA / HILLN: [id number] /
[2019-08-03 20:37] LABS: Glucose,Whole Blood 185 mg/dL (75-99)
[2019-08-03 23:44] LABS: % Iron Saturation 3.83 (12.00-45.00)
[2019-08-04 04:46] LABS: HCT 25.4 % (34.0-46.0); HGB 8.5 gm/dL (11.4-16.0); Hypochromasia Marked; MCH 29.3 pg (25.0-35.0); MCHC 33.4 g/dL (31.0-37.0); MCV 87.7 fL (80.0-100.0); Mean Platelet Volume 8.9; Platelet Count 127 k/uL (150-450); Poikilocytosis Marked; RDW 14.2 % (11.5-15.5); WBC 2.8 k/uL (3.8-10.6)
[2019-08-04 06:38] LABS: Glucose,Whole Blood 173 mg/dL (75-99)
[2019-08-04] MEDS ORDERED: SODIUM FERRIC GLUCONAT-SUCROSE 125 MG in SODIUM CHLORIDE 0.9% 100 ML IVPB ONE (09:00)
[2019-08-04] MEDS: INSULIN ASPART (NovoLOG) 100 UNIT/ML VIAL SQ SCH ×4 (09:06→20:52)
[2019-08-04] MEDS: INSULIN DETEMIR (LEVEMIR) 100 UNIT/ML SYR SQ SCH (09:07)
[2019-08-04] MEDS: VORTIOXETINE HYDROBROMIDE 10 MG TABLET PO SCH (09:08)
[2019-08-04] MEDS: LISINOPRIL-HCTZ 10-12.5 MG 1 EACH TAB PO SCH (09:08)
[2019-08-04] MEDS: ISOSORBIDE MONONITRATE ER 30 MG TAB.ER.24H PO SCH (09:08)
[2019-08-04] MEDS: ASPIRIN 81 MG PO SCH (09:09)
[2019-08-04] MEDS: ATENOLOL 50 MG TAB PO SCH ×2 (09:09→20:52)
[2019-08-04] MEDS: ATORVASTATIN 10 MG TAB PO SCH (09:09)
[2019-08-04] MEDS: PANTOPRAZOLE 40 MG TABLET PO SCH ×2 (09:09→16:41)
[2019-08-04] MEDS ORDERED: INFLUENZA VACCINE (6 MOS+) 60 MCG/0.5 ML SYRINGE IM ONE (10:16)
[2019-08-04 11:22] LABS: Glucose,Whole Blood 121 mg/dL (75-99)
--- NOTE | 2019-08-04 12:43 | P.PN ---
Subjective Progress Note Date: 08/04/19 Principal diagnosis: chest pain Patient is a 63 yo CF with a past medical history of atherosclerotic coronary artery disease with prior stent to LAD in 2015, hypertension, diabetes that is brittle with the last known hemoglobin A1c near 7 per patient, dyslipidemia, arthritis, and COPD presented to the ER at the direction of her primary care provider, Dr. Brady, for chest pain. In the emergency department she underwent an extensive evaluation. On arrival she was slightly hypertensive with a blood pressure 168/68. Initial laboratory analysis showed hemoglobin of 9.1, white blood cell count 3.6, and a negative troponin. EKG shows normal sinus rhythm at a rate of [address]-T wave changes. R1 80, QRS 80, QTC 477. She was placed in observation for unstable angina. She was started on a heparin drip, aspirin, and her statin and beta mirlande were winsome nued. Cardiology was consulted. Cardiology saw the patient and stopped heparin gtt as they felt she was at high risk for GI bleed. Cardiology placed consult for GI for possible EGD due to concern that her pain is coming from a GI source. EGD showed multiple ulcers without bleeding or high risk stigmata of bleeding. She was started on a PPI. Her iron studies came back showing sever Fe deficiency anemia. She denies any vaginal bleeding, hematuria, or frequent nose bleeding. Last Colonoscopy 2 years ago, last mammogram 1 year ago. No weight loss or night sweats. 1 dose of IV iron ordered and oral iron increased to BID Patient seen and examined at bedside. Patient reports that walking to the [employer] station this morning to get a paper was difficult she got short of breath and had to stop twice on her way there to catch her breath. She did not have any over chest pain at that point in time. No nausea or vomiting. Objective - Vital Signs Vital signs: Vital Signs Temp 98.4 F 08/04/19 12:00 Pulse 76 08/04/19 12:00 Resp 18 08/04/19 12:00 BP 163/71 08/04/19 12:00 Pulse Ox 96 08/04/19 12:00 Intake & Output 08/03/19 08/04/19 08/04/19 18:59 06:59 18:59 Intake Total 200 Output Total 2 Balance 198 Weight 97.522 kg Intake: IV 200 Output: Stool 2 Other: Voiding Method Toilet Toilet Toilet # Voids 1 1 - Exam General: non toxic, no distress, appears older than stated age Derm: warm, dry Head: atraumatic, normocephalic, symmetric Cardiovascular: S1S2 reg, no murmur, positive posterior tibial pulse bilateral, Lungs: CTA bilateral, no rhonchi, no rales , no accessory muscle use Abdominal: soft, nontender to palpation, no guarding, no appreciable organomegaly Ext: no gross muscle atrophy, no edema, no contractures Neuro: CN II-XI grossly intact, no focal neuro deficits Psych: Alert, oriented, appropriate affect - Labs CBC & Chem 7: 08/04/19 04:33 08/03/19 07:29 Labs: Abnormal Lab Results - Last 24 Hours (Table) 08/03/19 08/03/19 08/03/19 Range/Units 07:29 16:40 20:34 WBC (3.8-10.6) k/uL RBC (3.80-5.40) m/uL Hgb (11.4-16.0) gm/dL Hct (34.0-46.0) % Plt Count (150-450) k/uL POC Glucose (mg/dL) 117 H 185 H (75-99) mg/dL Iron 15 L (50-170) ug/dL % Saturation 3.83 L (12.00-45.00) Ferritin 9.0 L (10.0-291.0) ng/mL 08/04/19 08/04/19 08/04/19 Range/Units 04:33 06:37 11:21 WBC 2.8 L (3.8-10.6) k/uL RBC 2.90 L (3.80-5.40) m/uL Hgb 8.5 L (11.4-16.0) gm/dL Hct 25.4 L (34.0-46.0) % Plt Count 127 L (150-450) k/uL POC Glucose (mg/dL) 173 H 121 H (75-99) mg/dL Iron (50-170) ug/dL % Saturation (12.00-45.00) Ferritin (10.0-291.0) ng/mL Assessment and Plan Assessment: Unstable angina -Heparin drip discontinued -aspirin, beta mirlande, has agreed to low dose statin due to hx of myopathy, imdur -Cardiology recs. D/w Dr. Louis patient's symptoms on ambulation he will re-eval patient -Telemetry -Hold all NSAID products Gastric ulcers - no NSAIDS - BID PPI Iron deficiency anemia - IV Fe X 1 - Oral FE BID - Outpatient follow-up age appropriate cancer screening - outpatient GI Follow-up Hypertensive urgency, improving -atenolol, ACEI, HCTZ -Follow blood pressures Diabetes mellitus type 2 insulin requiring -Levemir -Sliding-scale insulin -A1c 6 Dyslipidemia -Statin therapy Arthritis -Hold all NSAIDs -As needed [place] -Tylenol COPD without exacerbation - prn albuterol DVT prophylaxis: ambulation Discussed with: patient, nursing, cardio Anticipated discharge date: in AM Anticipated discharge place: home A total of 25 minutes was spent on the care of this complex patient more than 50% of the time was spent in counseling and care coordination.
--- NOTE | 2019-08-04 14:47 | CONS ---
KALYANI Gastelum is a 63-year-old lady who is admitted to hospital with unstable angina and was found to be anemic with a hemoglobin of around 8.7. The patient was initially treated with intravenous heparin, tolerated it well and subsequently underwent an EGD where she was found to have multiple gastric ulcers that were not bleeding. The initial plan was that she was going to go home, follow up in the outpatient setting before doing a stress test or a cardiac cath. I am seeing her for the first time this morning. Patient is becoming short of breath with exertion, just walking in the g[place]. She is having chest tightness and difficulty in breathing. Dr. Painter was concerned about her condition. Given the continued shortness of breath and nonbleeding nature of her ulcers, I advised the patient to undergo cardiac catheterization on this admission and will decide on further course of action. EXAM: Comfortable at rest. Afebrile. Heart rate is 70. Blood pressure is 150/80, respirations 18. Chest exam reveals good air entry bilaterally. Heart exam reveals first and second heart sounds. No gallop. Has a systolic murmur at the left lower sternal border. Abdomen is soft. Exam of extremities did not reveal any edema. Peripheral pulses are felt. LABS: Labs show that the hemoglobin is 8.5, platelet count is 127. The patient is currently on aspirin, Tenormin, Lipitor, iron, Levemir, Imdur, Zestoretic, Protonix and Trintellix. ASSESSMENT: 1. Unstable angina in a patient with known coronary artery disease status post prior angioplasty. 2. Anemia with negative GI workup and no evidence of active bleeding at the moment. The patient tolerated the IV heparin well and is currently tolerating aspirin. The patient will undergo cardiac catheterization tomorrow, then will decide on further course of action. I am concerned with her symptoms. MMODL / IJN: [id number] /
[2019-08-04] MEDS: FERROUS SULFATE 325 MG TAB PO SCH (16:41)
--- NOTE | 2019-08-04 18:56 | P.PN ---
Subjective Progress Note Date: 08/04/19 Principal diagnosis: Acute blood loss anemia, antral ulcers, melena patient is seen lying in bed reporting that she is tolerating her diet. No abain reported. No nausea or vomiting. Objective - Vital Signs Vital signs: Vital Signs Temp 98.4 F 08/04/19 08:00 Pulse 73 08/04/19 08:00 Resp 18 08/04/19 08:00 BP 158/84 08/04/19 08:00 Pulse Ox 94 L 08/04/19 08:00 Intake & Output 08/03/19 08/04/19 08/04/19 18:59 06:59 18:59 Intake Total 200 Output Total 2 Balance 198 Weight 97.522 kg Intake: IV 200 Output: Stool 2 Other: Voiding Method Toilet Toilet Toilet # Voids 1 1 - Exam On physical examination, patient appears comfortable in no apparent distress. HEAD: Normocephalic, atraumatic. EYES: No scleral icterus. No conjunctival injection. MOUTH: No lesions, tongue midline. NECK: Trachea midline, no gross abnormalities. CHEST: Clear to auscultation with no wheezing or rhonchi appreciated. HEART: Regular rate and rhythm. ABDOMEN: Soft, obese. Bowel sounds are positive. No organomegaly. No guarding or rigidity. EXTREMITIES: No pedal edema. SKIN: No rashes, no jaundice. NEUROLOGIC: Alert and oriented x3. No focal deficits. - Labs CBC & Chem 7: 08/04/19 04:33 08/03/19 07:29 Labs: Abnormal Lab Results - Last 24 Hours (Table) 08/03/19 08/03/19 08/03/19 Range/Units 07:29 11:47 16:40 WBC (3.8-10.6) k/uL RBC (3.80-5.40) m/uL Hgb (11.4-16.0) gm/dL Hct (34.0-46.0) % Plt Count (150-450) k/uL POC Glucose (mg/dL) 125 H 117 H (75-99) mg/dL Iron 15 L (50-170) ug/dL % Saturation 3.83 L (12.00-45.00) Ferritin 9.0 L (10.0-291.0) ng/mL 08/03/19 08/04/19 08/04/19 Range/Units 20:34 04:33 06:37 WBC 2.8 L (3.8-10.6) k/uL RBC 2.90 L (3.80-5.40) m/uL Hgb 8.5 L (11.4-16.0) gm/dL Hct 25.4 L (34.0-46.0) % Plt Count 127 L (150-450) k/uL POC Glucose (mg/dL) 185 H 173 H (75-99) mg/dL Iron (50-170) ug/dL % Saturation (12.00-45.00) Ferritin (10.0-291.0) ng/mL Assessment and Plan (1) Melena Narrative/Plan: 63-year-old female with multiple medical comorbidities secondary to complaints of weakness and shortness of breath on exertion. The patient has multiple chronic issues with pain control and reports taking dual NSAID therapy with Motrin in the proximal and at home. She's had intermittent episodes of melena over the past month. No prior history of peptic ulcer disease or prior EGD. She was found to have a normocytic anemia on presentation with stool testing negative for blood. The patient was taken for EGD yesterday with findings of multiple nonbleeding antral ulcers without high-risk stigmata for rebleeding with biopsies taken, likely secondary to excessive use of NSAID medications. No further symptoms since then. The patient is tolerating a diet and on PPI therapy. Current Visit: Yes Status: Acute Code(s): K92.1 - MELENA SNOMED Code(s): 7497335 (2) Anemia Current Visit: Yes Status: Acute Code(s): D64.9 - ANEMIA, UNSPECIFIED SNOMED Code(s): 295035939 Plan: Supportive care Protonix 40 mg twice daily Okay for diet Monitor hemoglobin and hematocrit and transfuse as needed Avoid NSAID use Patient will benefit from repeat EGD in 6-8 weeks to check for ulcer healing Thank you for allowing us to participate in the care of the patient, the gastroenterology service will stand by, please call us back with any questions or concerns
[2019-08-04 20:33] LABS: Glucose,Whole Blood 155 mg/dL (75-99)
[2019-08-04] MEDS: DOCUSATE 100 MG CAP PO SCH (20:52)
--- NOTE | 2019-08-04 22:28 | PN ---
PROGRESS NOTE This is a 63-year-old lady with a known history of LAD, PCI 4 years ago; came into the hospital with exertional shortness of breath which seemed to be her anginal equivalent. Had negative troponins. Hemoglobin was 8.7 and today it is 8.5. It appears clinically she is having an upper GI chronic bleed with no active bleeding. Endoscopy revealed gastric ulcers without active site of bleeding. She does take a lot of nonsteroidal anti-inflammatory agents for her arthritis symptoms. My initial recommendation was to wait 2 weeks before I do any intervention mainly because I was concerned by giving any antiplatelet drugs if she does indeed have a significant obstruction that would require percutaneous coronary intervention. With this in mind, I suggested that we treat her medically with the addition of nitrates and discharge her, but she had more shortness of breath while she was here even with mild activity and therefore we are going to proceed with coronary angiography and PCI if indicated. I explained to the patient that there is a concern with bleeding in view of her low hemoglobin to begin with without much reserve. She understands very well. We will proceed with coronary angiography and PCI if indicated tomorrow. I explained to her the rationale, risks, benefits, and options. She understands all details and wishes to proceed with the procedure. MMODL / IJN: [id number] /
[2019-08-05 05:59] LABS: Glucose,Whole Blood 158 mg/dL (75-99)
[2019-08-05] MEDS: INSULIN ASPART (NovoLOG) 100 UNIT/ML VIAL SQ SCH ×4 (06:08→20:56)
[2019-08-05 06:11] LABS: HCT 27.9 % (34.0-46.0); HGB 9.6 gm/dL (11.4-16.0); Hypochromasia Marked; MCH 30.1 pg (25.0-35.0); MCHC 34.4 g/dL (31.0-37.0); MCV 87.3 fL (80.0-100.0); Mean Platelet Volume 9.1; Platelet Count 133 k/uL (150-450); Poikilocytosis Marked; RBC 3.19 m/uL (3.80-5.40); RDW 14.5 % (11.5-15.5); WBC 2.6 k/uL (3.8-10.6)
[2019-08-05 06:27] LABS: Calcium 9.2 mg/dL (8.4-10.2); Potassium 4.1 mmol/L (3.5-5.1)
[2019-08-05] MEDS: INSULIN DETEMIR (LEVEMIR) 100 UNIT/ML SYR SQ SCH (06:34)
[2019-08-05] MEDS: DOCUSATE 100 MG CAP PO SCH ×2 (06:34→20:56)
[2019-08-05] MEDS: FERROUS SULFATE 325 MG TAB PO SCH ×2 (06:42→16:21)
[2019-08-05] MEDS: PANTOPRAZOLE 40 MG TABLET PO SCH ×2 (06:42→16:21)
[2019-08-05] MEDS: ISOSORBIDE MONONITRATE ER 30 MG TAB.ER.24H PO SCH (06:42)
[2019-08-05] MEDS: ASPIRIN 81 MG PO SCH (06:42)
[2019-08-05] MEDS: ATORVASTATIN 80 MG TAB PO SCH (06:42)
[2019-08-05] MEDS: LISINOPRIL-HCTZ 10-12.5 MG 1 EACH TAB PO SCH (06:42)
[2019-08-05] MEDS: VORTIOXETINE HYDROBROMIDE 10 MG TABLET PO SCH (06:42)
[2019-08-05] MEDS: ATENOLOL 50 MG TAB PO SCH ×2 (06:43→20:56)
[2019-08-05 06:48] LABS: Eosinophils # (M) 0.08 k/uL (0-0.7); Lymphocytes # (M) 0.55 k/uL (1.0-4.8); Monocytes # (M) 0.31 k/uL (0-1.0); Neutrophils % (M) 64 %; Nucleated Red Blood Cells 0 /100 WBC (0-0); Total Cells Counted 100
[2019-08-05 08:31] VITALS: RESP 18
[2019-08-05] MEDS ORDERED: ERGOCALCIFEROL 50,000 UNIT CAP PO SCH (09:00)
[2019-08-05] MEDS ORDERED: SODIUM CHLORIDE 0.9% 500 ML 500 ML IV ONE (09:14)
[2019-08-05] MEDS ORDERED: LIDOCAINE 1% INJ 10MG/ML (20 ML MDV) ONE (09:25)
[2019-08-05] MEDS ORDERED: VERAPAMIL 2.5 MG/ML 2 ML AMP ONE (09:25)
[2019-08-05] MEDS ORDERED: HEPARIN SODIUM 1,000 UN/ML (10ML VL) ONE (09:25)
[2019-08-05] MEDS ORDERED: MIDAZOLAM 2 MG/2 ML VIAL IV ONE (09:35)
[2019-08-05] MEDS ORDERED: LIDOCAINE 1% INJ 10MG/ML (20 ML MDV) SQ ONE (09:35)
[2019-08-05] MEDS ORDERED: VERAPAMIL SYRINGE (5 MG/10 ML) INTRAARTER ONE ×2 (09:37→09:38)
[2019-08-05] MEDS ORDERED: BIVALIRUDIN BOLUS 250 MG/50 ML IV ONE (09:54)
[2019-08-05] MEDS ORDERED: BIVALIRUDIN 250 MG in SODIUM CHLORIDE 0.9% 36 ML IV ONE (09:54)
[2019-08-05] MEDS ORDERED: CLOPIDOGREL 75 MG TAB ONE (09:55)
[2019-08-05] MEDS ORDERED: IOPAMIDOL-370 100ML BTL INJ ONE (10:01)
[2019-08-05] MEDS ORDERED: CLOPIDOGREL 75 MG TAB PO ONE (10:02)
[2019-08-05] MEDS ORDERED: NITROGLYCERIN 1000MCG/10ML SYRINGE INTRACORON ONE (10:06)
[2019-08-05] MEDS: NITROGLYCERIN 1000MCG/10ML SYRINGE INTRACORON ONE ×2 (10:07→10:21)
[2019-08-05] MEDS ORDERED: IOPAMIDOL-370 50ML BTL INJ ONE ×2 (10:18→10:27)
[2019-08-05] MEDS ORDERED: amLODIPine 5 MG TAB ONE (10:26)
[2019-08-05] MEDS ORDERED: amLODIPine 5 MG TAB PO ONE (10:27)
[2019-08-05] MEDS ORDERED: MAG HYDROX/AL HYDROX/SIMETH 30 ML CUP PO PRN (10:46)
[2019-08-05] MEDS ORDERED: ZOLPIDEM 5 MG TAB PO PRN (10:46)
[2019-08-05] MEDS ORDERED: ATROPINE SULFATE 0.1 MG/ML 10ML SYRINGE IV PRN (10:46)
[2019-08-05] MEDS ORDERED: NITROGLYCERIN SL TABS 0.4 MG TAB SUBLINGUAL PRN (10:46)
[2019-08-05] MEDS ORDERED: RX INFO: IV CONTRAST WAS GIVEN 1 EACH MISC MISCELLANE PRN (10:46)
[2019-08-05 11:48] LABS: Glucose,Whole Blood 137 mg/dL (75-99)
[2019-08-05] MEDS: LOSARTAN 50 MG TAB PO SCH (11:48)
[2019-08-05] MEDS: SODIUM CHLORIDE 0.9% 1,000 ML IV SCH (11:52)
--- NOTE | 2019-08-05 12:53 | CC ---
CARDIAC CATHETERIZATION REPORT DATE OF SERVICE: 08/05/2019. PROCEDURE: 1. Left heart catheterization and coronary angiography. 2. PTCA and stenting off the circumflex marginal coronary artery and mid circumflex coronary artery with a 2 drug-eluting stents. PERFORMED BY: Dr. Dakota Ness. SEDATION: Moderate conscious sedation time was 54 minutes. CLINICAL INFORMATION: Mrs. Oriana Gallo is a 63-year-old lady with a known history of hypertension, hyperlipidemia, significant degenerative joint disease, who also has CAD under underwent stenting of mid LAD performed by Dr. Lida Ness with a drug-eluting stent in December of 2014. She has not followed up since then and presented to the hospital with symptoms suggestive of unstable angina and also has a hemoglobin of 8.7. I recommended an upper endoscopy which was performed which revealed inactive but significant ulcers in the antrum. Patient was advised initially to come in for a cardiac cath after 2 weeks, but because of ongoing symptoms of exertional shortness of breath, which seemed to be her anginal equivalence, she was advised coronary angiography while she was here in the hospital. Risks, benefits, options, rationale were explained to the patient in detail. PROCEDURE NOTE: Under local anesthesia and strict aseptic precautions, a 6-Upper Sorbian introducer was placed in the right radial artery. Using a JL3.5 and JR 4.0 catheter, I performed selective coronary angiography and the same right Telma catheter was used to check LV pressures. LV gram was not performed. I noted that the patient had a significant circumflex lesion and LAD was patent. I proceeded to perform the PCI of circumflex vessel. CARDIAC CATHETERIZATION FINDINGS: Left ventricle end-diastolic pressure was 4 mmHg without any gradient across the aortic valve. CORONARY ANGIOGRAPHY FINDINGS: RIGHT CORONARY ARTERY: Right coronary artery-this is a large caliber vessel. No significant disease distally bifurcates into PDA and PLV. PLV is larger. PDA is relatively smaller, has about a 40% narrowing in the midportion of the PDA. No other significant disease is noted. LEFT MAIN CORONARY ARTERY: Short, patent, disease-free vessel that bifurcates into LAD and circumflex. The LAD which was stented in the midportion is widely patent with remarkably good flow. It runs all the way to the apex, in the distal LAD. There is a 50% narrowing almost towards the apex. Overall LAD is a good caliber and good distribution vessel without critical lesions and stented segment is patent. LEFT POSTERIOR CIRCUMFLEX CORONARY ARTERY: Technically, nondominant vessel, gives off a large obtuse marginal which has 80% eccentric lesion and another 60% eccentric lesion with a segment that appears to be hazy in between. There is another lesion in the mid circumflex of about 80% and this is a relatively smaller vessel fair, caliber garcia. LEFT VENTRICULOGRAM: This was not performed. FINAL IMPRESSION: This patient has normal filling pressures. No gradient across aortic valve. A right- dominant system with no significant disease in the RCA other than a 40% PDA lesion. LAD in the midportion where there was a previous stent is widely patent. Distal LAD has a 50% lesion. Circumflex marginal has two 80 and 70% tandem lesions with area of noncritical disease in between. Mid circumflex is 80% focal lesion in a calcified segment. RECOMMENDATIONS: I recommended PCI of circumflex and proceeded to perform this in the same setting. PCI PROCEDURE DETAILS: The patient was given 600 mg of Plavix and Angiomax bolus and infusion was given as per protocol. A JL3.5 guide catheter of 6-Upper Sorbian caliber was used to cannulate the left coronary artery. A run-through wire was used to cross the lesion in the circumflex marginal. Predilatation was performed with a 2.5 caliber 15 mm Trek balloon. I then deployed 18 mm long 3.25 caliber Xience stent with excellent angiographic result. I then advanced the wire into the main circumflex and kept it distally. The midportion eccentric lesion which with heavy calcification. Lesion was pre-dilated with a 12 mm 2.5 caliber NC Trek balloon at 12 atmospheres. I then used a 15 mm long 2.5 caliber Xience stent and deployed this at 11 atmospheres. Excellent angiographic result was achieved without complication. The sheath was taken out and TR band applied as per protocol and patient was sent to the room in a stable condition. Results were discussed with the patient and also Dr. Painter the admitting doctor, but there was no other family members available. The patient will be on dual antiplatelet therapy and her hemoglobin will be watched closely. I expect that she can be discharged tomorrow. Excellent angiographic result was achieved without complication and 2 drug-eluting stents were deployed, 1 in the mid circumflex and one in the obtuse marginal. MMODL / IJN: [id number] /
[2019-08-05 14:06] VITALS: BMI 29.0
--- NOTE | 2019-08-05 14:27 | P.PN ---
Subjective Progress Note Date: 08/05/19 (delayed charting seen at 0900) Principal diagnosis: chest pain Patient is a 63 yo CF with a past medical history of atherosclerotic coronary artery disease with prior stent to LAD in 2015, hypertension, diabetes that is brittle with the last known hemoglobin A1c near 7 per patient, dyslipidemia, arthritis, and COPD presented to the ER at the direction of her primary care provider, Dr. Brady, for chest pain. In the emergency department she underwent an extensive evaluation. On arrival she was slightly hypertensive with a blood pressure 168/68. Initial laboratory analysis showed hemoglobin of 9.1, white blood cell count 3.6, and a negative troponin. EKG shows normal sinus rhythm at a rate of [address]-T wave changes. R1 80, QRS 80, QTC 477. She was placed in observation for unstable angina. She was started on a heparin drip, aspirin, and her statin and beta mirlande were continued. Cardiology was consulted. Cardiology saw the patient and stopped heparin gtt as they felt she was at high risk for GI bleed. Cardiology placed consult for GI for possible EGD due to concern that her pain is coming from a GI source. EGD showed multiple ulcers without bleeding or high risk stigmata of bleeding. She was started on a PPI. Her iron studies came back showing sever Fe deficiency anemia. She denies any vaginal bleeding, hematuria, or frequent nose bleeding. Last Colonoscopy 2 years ago, last mammogram 1 year ago. No weight loss or night sweats. 1 dose of IV iron ordered and oral iron increased to BID. She did develop some significant shortness of breath with ambulation. This was discussed with cardiology and it was decided to proceed with cardiac catheterization. Risks and benefits were discussed including possibility of bleeding from her known ulcers. She subsequently underwent cardiac catheterization on 08/05/19 and had placement of 2 drug-eluting stents to the circumflex marginal coronary artery and mid circumflex coronary artery Patient seen and examined at bedside. Patient reports that she did experience some chest pain during her shower this morning. Denies any nausea, vomiting. She did have a couple more episodes of shortness of breath with walking overnight. No other complaints currently. Objective - Vital Signs Vital signs: Vital Signs Temp 98.0 F 08/05/19 08:00 Pulse 66 08/05/19 08:00 Resp 18 08/05/19 11:28 BP 119/59 08/05/19 12:02 Pulse Ox 99 08/05/19 08:00 Intake & Output 08/04/19 08/05/19 08/05/19 18:59 06:59 18:59 Intake Total 222 20 276 Output Total 2 6 4 Balance 220 14 272 Weight 91.8 kg 91.8 kg Intake: IV 20 276 Invasive Line 1 20 Oral 222 Output: Stool 2 6 4 Other: Voiding Method Toilet Toilet # Voids 1 1 - Exam General: non toxic, no distress, appears older than stated age Derm: warm, dry Head: atraumatic, normocephalic, symmetric HEENT: No lip lesion, mucous membranes dry, no nasal lesions Cardiovascular: S1S2 reg, no murmur, positive posterior tibial pulse bilateral, Lungs: CTA bilateral, no rhonchi, no rales , no accessory muscle use Abdominal: soft, nontender to palpation, no guarding, no appreciable organomegaly Ext: no gross muscle atrophy, no edema, no contractures Neuro: CN II-XI grossly intact, no focal neuro deficits Psych: Alert, oriented, appropriate affect - Labs CBC & Chem 7: 08/05/19 05:56 08/05/19 05:56 Labs: Abnormal Lab Results - Last 24 Hours (Table) 08/04/19 08/05/19 08/05/19 Range/Units 20:32 05:56 05:56 WBC 2.6 L (3.8-10.6) k/uL RBC 3.19 L (3.80-5.40) m/uL Hgb 9.6 L (11.4-16.0) gm/dL Hct 27.9 L (34.0-46.0) % Plt Count 133 L (150-450) k/uL Lymphocytes # (Manual) 0.55 L (1.0-4.8) k/uL Glucose 149 H (74-99) mg/dL POC Glucose (mg/dL) 155 H (75-99) mg/dL 08/05/19 08/05/19 Range/Units 05:57 11:46 WBC (3.8-10.6) k/uL RBC (3.80-5.40) m/uL Hgb (11.4-16.0) gm/dL Hct (34.0-46.0) % Plt Count (150-450) k/uL Lymphocytes # (Manual) (1.0-4.8) k/uL Glucose (74-99) mg/dL POC Glucose (mg/dL) 158 H 137 H (75-99) mg/dL Assessment and Plan Assessment: Unstable angina with CAD s/p PCI with 2 drug eluding stent placed -aspirin, beta mirlande, statin, plavix, imdur -Telemetry -Hold all NSAID products Gastric ulcers without evidence of bleeding - no NSAIDS - BID PPI Iron deficiency anemia - IV Fe X 1 given 08/04 - Oral FE BID - Outpatient follow-up age appropriate cancer screening - outpatient GI Follow-up Hypertensive urgency, improving -atenolol, ACRB, HCTZ -Follow blood pressures Diabetes mellitus type 2 insulin requiring -Levemir -Sliding-scale insulin -A1c 6 Dyslipidemia -Statin therapy Arthritis -Hold all NSAIDs -As needed Moro -Tylenol COPD without exacerbation - prn albuterol DVT prophylaxis: ambulation Discussed with: patient, nursing, cardio Anticipated discharge date: in AM Anticipated discharge place: home A total of 25 minutes was spent on the care of this complex patient more than 50% of the time was spent in counseling and care coordination.
[2019-08-05 16:42] LABS: Glucose,Whole Blood 137 mg/dL (75-99)
[2019-08-05 20:49] LABS: Glucose,Whole Blood 159 mg/dL (75-99)
[2019-08-05] MEDS: amLODIPine 5 MG TAB PO SCH (20:56)
[2019-08-06] MEDS: SODIUM CHLORIDE 0.9% 1,000 ML IV SCH (06:31)
[2019-08-06 06:46] LABS: Glucose,Whole Blood 167 mg/dL (75-99)
[2019-08-06 06:47] LABS: Basophils # (A) 0.1 k/uL (0-0.2); Basophils % (A) 2 %; Eosinophils # (A) 0.1 k/uL (0-0.7); Eosinophils % (A) 3 %; HCT 30.6 % (34.0-46.0); HGB 9.9 gm/dL (11.4-16.0); Hypochromasia Moderate; Lymphocytes # (A) 0.7 k/uL (1.0-4.8); Lymphocytes % (A) 20 %; MCH 28.4 pg (25.0-35.0); MCHC 32.5 g/dL (31.0-37.0); MCV 87.4 fL (80.0-100.0); Mean Platelet Volume 8.6; Monocytes # (A) 0.3 k/uL (0-1.0); Monocytes % (A) 9 %; Neutrophils # (A) 2.3 k/uL (1.3-7.7); Neutrophils % (A) 62 %; Platelet Count 158 k/uL (150-450); Poikilocytosis Marked; RDW 15.6 % (11.5-15.5); WBC 3.7 k/uL (3.8-10.6)
[2019-08-06 06:51] LABS: Calcium 9.1 mg/dL (8.4-10.2)
[2019-08-06] MEDS: PANTOPRAZOLE 40 MG TABLET PO SCH (06:51)
[2019-08-06] MEDS: FERROUS SULFATE 325 MG TAB PO SCH (06:51)
[2019-08-06] MEDS: INSULIN ASPART (NovoLOG) 100 UNIT/ML VIAL SQ SCH (06:51)
[2019-08-06] MEDS: LOSARTAN 50 MG TAB PO SCH (08:07)
[2019-08-06] MEDS: DOCUSATE 100 MG CAP PO SCH (08:07)
[2019-08-06] MEDS: amLODIPine 5 MG TAB PO SCH (08:07)
[2019-08-06] MEDS: ASPIRIN 81 MG PO SCH (08:07)
[2019-08-06] MEDS: ISOSORBIDE MONONITRATE ER 30 MG TAB.ER.24H PO SCH (08:07)
[2019-08-06] MEDS: VORTIOXETINE HYDROBROMIDE 10 MG TABLET PO SCH (08:08)
[2019-08-06] MEDS: ATENOLOL 50 MG TAB PO SCH (08:08)
[2019-08-06] MEDS: INSULIN DETEMIR (LEVEMIR) 100 UNIT/ML SYR SQ SCH (08:08)
[2019-08-06] MEDS: ATORVASTATIN 80 MG TAB PO SCH (08:09)
[2019-08-06] MEDS ORDERED: INFLUENZA VACCINE (6 MOS+) 60 MCG/0.5 ML SYRINGE IM ONE (08:14)
[2019-08-06 08:18] VITALS: BP 114/66; PULSE 71; TEMP 98.1
[2019-08-06] MEDS ORDERED: CLOPIDOGREL 75 MG TAB PO SCH (09:00)
--- NOTE | 2019-08-06 11:47 | P.PN ---
Subjective Progress Note Date: 08/06/19 This is a pleasant 63-year-old female who presented to the hospital with symptoms of chest discomfort, she was taken to the cardiac catheterization lab where she underwent angioplasty and stenting of the circumflex artery. Patient was seen and examined this morning, denies any chest pain or difficulty in breathing. EKG from this morning shows normal sinus rhythm with no change from post-PCI. Blood pressure 114/60 with a heart rate in the 70s, 96% on room air. White blood cell count 3.7, hemoglobin 9.9, platelet count 158. Sodium 140, potassium 4.0, BUN 11, creatinine 0.8. Objective - Vital Signs Vital signs: Vital Signs Temp 98.1 F 08/06/19 08:00 Pulse 71 08/06/19 08:00 Resp 18 08/06/19 08:00 BP 114/66 08/06/19 08:00 Pulse Ox 96 08/06/19 08:00 Intake & Output 08/05/19 08/06/19 08/06/19 18:59 06:59 18:59 Intake Total 776 1000 Output Total 6 6 2 Balance 770 994 -2 Weight 91.8 kg 93.4 kg Intake: IV 276 Intake, IV Titration 1000 Amount Sodium Chloride 0.9% 1, 1000 000 ml @ 75 mls/hr IV . [id number] [facility] Rx#:[id number] Oral 500 Output: Stool 6 6 2 Other: Voiding Method Toilet # Voids 2 - Exam PHYSICAL EXAMINATION: GENERAL: 63-year-old female in no acute distress at the time of my examination HEENT: Head is atraumatic, normocephalic. Pupils equal, round. Sclera anicteric. Conjunctiva are clear. Mucous membranes of the mouth are moist. Neck is supple. There is no elevated jugular venous pressure. No carotid bruit is heard. HEART EXAMINATION: Heart S1, S2 normal. No murmur or gallop heard. CHEST EXAMINATION: Lungs are clear to auscultation and precussion. No chest wall tenderness is noted on palpation or with deep breathing. ABDOMEN: Soft, nontender. Bowel sounds are heard. No organomegaly noted. EXTREMITIES: 2+ peripheral pulses with no evidence of peripheral edema and no calf tenderness noted. Right radial site clean and dry, good distal pulse. NEUROLOGIC patient is awake, alert and oriented 3 . . - Labs CBC & Chem 7: 08/06/19 05:33 08/06/19 05:33 Labs: Abnormal Lab Results - Last 24 Hours (Table) 08/05/19 08/05/19 08/05/19 Range/Units 11:46 16:41 20:47 WBC (3.8-10.6) k/uL RBC (3.80-5.40) m/uL Hgb (11.4-16.0) gm/dL Hct (34.0-46.0) % RDW (11.5-15.5) % Lymphocytes # (1.0-4.8) k/uL Glucose (74-99) mg/dL POC Glucose (mg/dL) 137 H 137 H 159 H (75-99) mg/dL 08/06/19 08/06/19 08/06/19 Range/Units 05:33 05:33 06:44 WBC 3.7 L (3.8-10.6) k/uL RBC 3.50 L (3.80-5.40) m/uL Hgb 9.9 L (11.4-16.0) gm/dL Hct 30.6 L (34.0-46.0) % RDW 15.6 H (11.5-15.5) % Lymphocytes # 0.7 L (1.0-4.8) k/uL Glucose 150 H (74-99) mg/dL POC Glucose (mg/dL) 167 H (75-99) mg/dL Assessment and Plan Plan: Assessment and plan #1 chest pain, status post angioplasty and stenting of the circumflex artery #2 anemia #3 history of coronary artery disease with prior LAD stenting in 2014 #4 hyperlipidemia #5 diabetes #6 arthritis Plan Patient may be discharged home today from cardiology's perspective. Follow-up appointment in the office with Dr. Ness post discharge. Continue dual antiplatelet therapy along with Lipitor 80, Tenormin 100 mg twice a day, Norvasc 5 mg twice a day, Cozaar 100 mg daily, Imdur 30 mg daily, and sublingual nitroglycerin as needed for chest pain DNP note has been reviewed, I agree with a documented findings and plan of care. Patient was seen and examined.
--- NOTE | 2019-08-06 16:52 | P.DS ---
Providers Date of admission: 08/04/19 12:06 Expected date of discharge: 08/06/19 Attending physician: Alexandra Painter, DO Consults: 08/02/19 17:07 Consult Physician Urgent Consulting Provider: Chris Tucker Consult Reason/Comments: Unstable angina Do you want consulting provider notified?: Yes 08/05/19 10:47 Consult Physician Routine Consulting Provider: Chris Tucker Consult Reason/Comments: Post Interventional patient Do you want consulting provider notified?: Already Contacted Primary care physician: Josemanuel Brady Hospital Course: Discharge Diagnosis: Unastable angina CAD s/p PCI with 2 stents to the circumflex Gastric ulcers without any evidence of bleeding Iron Deficiency anemia Hypertensive urgency Diabetes mellitus type 2 insulin requiring and A1c of 6 Dyslipidemia Arthritis COPD without exacerbation Hospital Course: Patient is a 63 yo CF with a past medical history of atherosclerotic coronary artery disease with prior stent to LAD in 2014, hypertension, diabetes that is brittle with the last known hemoglobin A1c near 7 per patient, dyslipidemia, arthritis, and COPD presented to the ER at the direction of her primary care provider, Dr. Brady, for chest pain. In the emergency department she underwent an extensive evaluation. On arrival she was slightly hypertensive w ith a blood pressure 168/68. Initial laboratory analysis showed hemoglobin of 9.1, white blood cell count 3.6, and a negative troponin. EKG shows normal sinus rhythm at a rate of [address]-T wave changes. R1 80, QRS 80, QTC 477. She was placed in observation for unstable angina. She was started on a heparin drip, aspirin, and her statin and beta mirlande were continued. Cardiology was consulted. Cardiology saw the patient and stopped heparin gtt as they felt she was at high risk for GI bleed. Cardiology placed consult for GI for possible EGD due to concern that her pain is coming from a GI source. EGD showed multiple ulcers without bleeding or high risk stigmata of bleeding. She was started on a PPI. Her iron studies came back showing sever Fe deficiency anemia. She denies any vaginal bleeding, hematuria, or frequent nose bleeding. Last Colonoscopy 2 years ago, last mammogram 1 year ago. No weight loss or night sweats. 1 dose of IV iron ordered and oral iron increased to BID. She did develop some significant shortness of breath with ambulation. This was discussed with cardiology and it was decided to proceed with cardiac catheterization. Risks and benefits were discussed including possibility of bleeding from her known ulcers. She subsequently underwent cardiac catheterization on 08/05/19 and had placement of 2 drug-eluting stents to the circumflex marginal coronary artery and mid circumflex coronary artery. She tolerated this well with no immediate complications. I have asked her to follow-up with her PCP regarding her iron deficiency anemia. She was determined stable for discharge. Medications as listed below. Follow-up with Dr. Ness on 08/13 at 2:30 PM, follow up with Dr. Armando from GI 08/10 at 3 PM, and follow up with Dr. Brady in 1-2 days. Patient seen and examined at bedside. No chest pain, shortness of breath, nausea, or vomiting. He is fully able to do activities. Reiterated the importance of adequate follow-up with cardiology so we do not have the same situation again 4 years from now. She understands the importance of taking her statin medication. Vital signs reviewed and stable. General: non toxic, no distress, appears at stated age Derm: warm, dry Head: atraumatic, normocephalic, symmetric Eyes: EOMI, no lid lag, anicteric sclera Mouth: no lip lesion, mucus membranes moist Cardiovascular: S1S2 reg, no murmur, positive posterior tibial pulse bilateral, Lungs: CTA bilateral, no rhonchi, no rales , no accessory muscle use Abdominal: soft, nontender to palpation, no guarding, no appreciable organomegaly Ext: no gross muscle atrophy, no edema, no contractures Neuro: CN II-XI grossly intact, no focal neuro deficits Psych: Alert, oriented, appropriate affect A total of 35 minutes of time were spent preparing this complex discharge summary . Patient Condition at Discharge: Stable Plan - Discharge Summary Discharge Rx Participant: No New Discharge Prescriptions: New RX: Aspirin 81 mg PO DAILY chew RX: Losartan [Cozaar] 100 mg PO DAILY #30 tab RX: Isosorbide Mononitrate ER [Imdur] 30 mg PO DAILY #30 tab.er.24h RX: Ferrous Sulfate [Iron (65 MG Elemental)] 325 mg PO BID-W/MEALS #60 tab RX: Atorvastatin [Lipitor] 80 mg PO DAILY #30 tab RX: amLODIPine [Norvasc] 5 mg PO BID #30 tab RX: Clopidogrel [Plavix] 75 mg PO DAILY #30 tab RX: Pantoprazole [Protonix] 40 mg PO AC-BID #60 tablet.dr RX: Acetaminophen Tab [Tylenol] 650 mg PO Q6HR PRN tab PRN Reason: Mild Pain Or Fever > 100.5 Nitroglycerin Sl Tabs [Nitrostat] 0.4 mg SUBLINGUAL Q5M PRN #100 tab PRN Reason: Chest Pain Continue RX: Vortioxetine Hydrobromide [Trintellix] 10 mg PO DAILY RX: Atenolol [Tenormin] 100 mg PO BID tab RX: Famotidine [Pepcid] 20 mg PO DAILY RX: Albuterol Inhaler [Ventolin Hfa Inhaler] 2 puff INHALATION RT-QID PRN PRN Reason: Shortness Of Breath RX: Bismuth Subsalicylate [Pepto-Bismol] 262 mg PO Q4H PRN PRN Reason: Indigestion RX: Magnesium Hydroxide [Milk of Magnesia] 2,400 mg PO DAILY PRN PRN Reason: Constipation RX: Diclofenac Sodium [Voltaren Gel] 1 applic TOPICAL DAILY PRN PRN Reason: KNEE PAIN RX: Insulin Regular [humuLIN R] See Protocol SQ ACHS RX: Insulin Glargine,Hum.rec.anlog [Basaglar Kwikpen U-100] 20 unit SQ DAILY RX: metFORMIN HCL [Glucophage] 500 mg PO BID RX: Ergocalciferol [Vitamin D2 (DRISDOL)] 50,000 unit PO LYLES Discontinued Ibuprofen [Motrin] 800 mg PO TID PRN PRN Reason: Pain Lisinopril-Hctz 10-12.5 mg [Zestoretic 10-12.5] 1 tab PO DAILY Naproxen [Naprosyn] 375 mg PO TID Discharge Medication List RX: Vortioxetine Hydrobromide [Trintellix] 10 mg PO DAILY 01/03/15 [History] RX: Atenolol [Tenormin] 100 mg PO BID tab 06/12/15 [Rx] RX: Famotidine [Pepcid] 20 mg PO DAILY 11/21/15 [History] RX: Albuterol Inhaler [Ventolin Hfa Inhaler] 2 puff INHALATION RT-QID PRN 08/02/19 [History] RX: Bismuth Subsalicylate [Pepto-Bismol] 262 mg PO Q4H PRN 08/02/19 [History] RX: Diclofenac Sodium [Voltaren Gel] 1 applic TOPICAL DAILY PRN 08/02/19 [History] RX: Ergocalciferol [Vitamin D2 (DRISDOL)] 50,000 unit PO LYLES 08/02/19 [History] RX: Insulin Glargine,Hum.rec.anlog [Basaglar Kwikpen U-100] 20 unit SQ DAILY 08/02/19 [History] RX: Insulin Regular [humuLIN R] See Protocol SQ ACHS 08/02/19 [History] RX: Magnesium Hydroxide [Milk of Magnesia] 2,400 mg PO DAILY PRN 08/02/19 [Histo ry] RX: metFORMIN HCL [Glucophage] 500 mg PO BID 08/02/19 [History] Nitroglycerin Sl Tabs [Nitrostat] 0.4 mg SUBLINGUAL Q5M PRN #100 tab 08/06/19 [Rx] RX: Acetaminophen Tab [Tylenol] 650 mg PO Q6HR PRN tab 08/06/19 [Rx] RX: Aspirin 81 mg PO DAILY chew 08/06/19 [Rx] RX: Atorvastatin [Lipitor] 80 mg PO DAILY #30 tab 08/06/19 [Rx] RX: Clopidogrel [Plavix] 75 mg PO DAILY #30 tab 08/06/19 [Rx] RX: Ferrous Sulfate [Iron (65 MG Elemental)] 325 mg PO BID-W/MEALS #60 tab 08/06/19 [Rx] RX: Isosorbide Mononitrate ER [Imdur] 30 mg PO DAILY #30 tab.er.24h 08/06/19 [Rx] RX: Losartan [Cozaar] 100 mg PO DAILY #30 tab 08/06/19 [Rx] RX: Pantoprazole [Protonix] 40 mg PO AC-BID #60 tablet.dr 08/06/19 [Rx] RX: amLODIPine [Norvasc] 5 mg PO BID #30 tab 08/06/19 [Rx] Follow up Appointment(s)/Referral(s): Susana Ness MD [STAFF PHYSICIAN] - 08/13/19 2:30 pm (Tuesday) Josemanuel Brady DO [Primary Care Provider] - 1-2 days (Office is closed. Please call to schedule appointment) Jimmy Armando MD [STAFF PHYSICIAN] - 08/10/19 3:00 pm (Tuesday Please bring picture ID and insurance cards.) Patient Instructions/Handouts: Chest Pain (GEN), After Radial Heart Catheterization (GEN), Upper Endoscopy (DC) Activity/Diet/Wound Care/Special Instructions: Activity: as tolerated Diet: heart healthy carb consistent Special Instructions: Resume [place] on the evening of 08/07/19 Discharge Disposition: HOME SELF-CARE
== END 2019-08-06 10:50 | disposition home or self-care (01) | DRG 247 ==
LOC: EC 14:49 → 1SOBS 17:12 → OBSVTOIN 08-04 12:06 → 3SCARD 08-04 13:00
PROVIDERS: ADMIT Internal Medicine; ATTEND Internal Medicine
PROC: 0DB78ZX Excision of Stomach, Pylorus, Via Natural or Artificial Opening Endoscopic, Diagnostic (ICD-10-PCS; 2019-08-03)
PROC: 027035Z Dilation of Coronary Artery, One Artery with Two Drug-eluting Intraluminal Devices, Percutaneous Approach (ICD-10-PCS; principal; 2019-08-05 09:30)
PROC: 4A023N7 Measurement of Cardiac Sampling and Pressure, Left Heart, Percutaneous Approach (ICD-10-PCS; principal; 2019-08-05 09:30)
PROC: B2111ZZ Fluoroscopy of Multiple Coronary Arteries using Low Osmolar Contrast (ICD-10-PCS; principal; 2019-08-05 09:30)
DX: I25.110 Atherosclerotic heart disease of native coronary artery with unstable angina pectoris (principal); D62 Acute posthemorrhagic anemia; D50.9 Iron deficiency anemia, unspecified; E11.9 Type 2 diabetes mellitus without complications; E78.00 Pure hypercholesterolemia, unspecified; E78.5 Hyperlipidemia, unspecified; F32.9 Major depressive disorder, single episode, unspecified; F41.9 Anxiety disorder, unspecified; I10 Essential (primary) hypertension; I16.0 Hypertensive urgency; J44.9 Chronic obstructive pulmonary disease, unspecified; K59.00 Constipation, unspecified; K74.60 Unspecified cirrhosis of liver; M19.90 Unspecified osteoarthritis, unspecified site; Z79.4 Long term (current) use of insulin; Z79.82 Long term (current) use of aspirin; Z79.899 Other long term (current) drug therapy; Z82.49 Family history of ischemic heart disease and other diseases of the circulatory system; Z83.79 Family history of other diseases of the digestive system; Z87.828 Personal history of other (healed) physical injury and trauma; Z90.710 Acquired absence of both cervix and uterus; K25.9 Gastric ulcer, unspecified as acute or chronic, without hemorrhage or perforation
CPT/HCPCS: 36415; 43239; 71046; 80048; 80053; 80061; 82272; 82728; 83036; 83540; 83550; 83735; 84484; 85025; 85027; 85610; 85730; 86850; 86900; 86901; 88305; 90686; 93005; 93306; 93458; 99285; C1874

== ENCOUNTER 2020-03-22 11:13 | Inpatient (IN) | payer OTHER ==
[2020-03-22] MEDS ORDERED: SODIUM CHLORIDE 0.9% 1,000 ML IV STA ×2 (11:42)
--- NOTE | 2020-03-22 12:23 | ED ---
SOB HPI - General Chief Complaint: Shortness of Breath Stated Complaint: fall/poss blood clot/SOB Time Seen by Provider: 03/22/20 11:22 Source: patient, RN notes reviewed, old records reviewed Mode of arrival: ambulatory Limitations: no limitations - History of Present Illness Initial Comments: Patient is a 64-year-old female with a history of coronary disease, diabetes hypertension a arthritis. She presents emergency Department today with complaints of shortness of breath and low-grade fevers for the past 2 days. She states she's had some frequent falls and some dizziness and reports that she fell in her legs. She complains of bruising and swelling behind the left leg and he and swelling to the right knee as well. Patient states that she has not had a history of blood clots in the past. She was concerned because over the past day she's noticed that she's been more short of breath and complaining of chest pain with taking a deep breath. With a history of leg swelling that made her concern for blood clots. Patient has had history of coronary disease and had stent placement in 2019. Patient states that she does have a history of se asonal ALLERGIES but that seems to diminished lately as far as her difficulty in breathing. She denies any significant cough or hemoptysis. She denies wheezing. Patient reports that when she was admitted and July she had stents placed in the coronary arteries and also developed a gastric ulcer and GI bleed. She is not on any anticoagulation at this time. - Related Data Home Medications Medication Instructions Recorded Confirmed Vortioxetine Hydrobromide 10 mg PO DAILY 01/03/15 08/02/19 [Trintellix] Famotidine [Pepcid] 20 mg PO DAILY 11/21/15 08/02/19 Albuterol Inhaler (Mhu) [Ventolin 2 puff INHALATION RT-QID PRN 08/02/19 08/02/19 Hfa Inhaler (Mhu)] Bismuth Subsalicylate 262 mg PO Q4H PRN 08/02/19 08/02/19 [Pepto-Bismol] Diclofenac Sodium [Voltaren Gel] 1 applic TOPICAL DAILY PRN 08/02/19 08/02/19 Ergocalciferol [Vitamin D2 50,000 unit PO LYLES 08/02/19 08/02/19 (DRISDOL)] Insulin Glargine,Hum.rec.anlog 20 unit SQ DAILY 08/02/19 08/02/19 [Basaglar Kwikpen U-100] Insulin Regular [humuLIN R] See Protocol SQ ACHS 08/02/19 08/02/19 Magnesium Hydroxide [Milk of 2,400 mg PO DAILY PRN 08/02/19 08/02/19 Magnesia] metFORMIN HCL [Glucophage] 500 mg PO BID 08/02/19 08/02/19 Previous Rx's Medication Instructions Recorded Atenolol [Tenormin] 100 mg PO BID tab 06/12/15 Acetaminophen Tab [Tylenol] 650 mg PO Q6HR PRN tab 08/06/19 Aspirin 81 mg PO DAILY chew 08/06/19 Atorvastatin [Lipitor] 80 mg PO DAILY #30 tab 08/06/19 Clopidogrel [Plavix] 75 mg PO DAILY #30 tab 08/06/19 Ferrous Sulfate [Iron (65 MG 325 mg PO BID-W/MEALS #60 tab 08/06/19 Elemental)] Isosorbide Mononitrate ER [Imdur] 30 mg PO DAILY #30 tab.er.24h 08/06/19 Losartan [Cozaar] 100 mg PO DAILY #30 tab 08/06/19 Nitroglycerin Sl Tabs [Nitrostat] 0.4 mg SUBLINGUAL Q5M PRN #100 tab 08/06/19 Pantoprazole [Protonix] 40 mg PO AC-BID #60 tablet.dr 08/06/19 amLODIPine [Norvasc] 5 mg PO BID #30 tab 08/06/19 Allergies Allergy/AdvReac Type Severity Reaction Status Date / Time venom-honey bee Allergy Unknown Rash/Hives Verified 03/22/20 11:15 [bee venom (honey bee)] Gwcfyzb-Wya-Sxe Reductase AdvReac MUSCLE Verified 03/22/20 11:15 Inhibitor PAIN/JOINT PAIN Review of Systems ROS Statement: Those systems with pertinent positive or pertinent negative responses have been documented in the HPI. ROS Other: All systems not noted in ROS Statement are negative. Past Medical History Past Medical History: Coronary Artery Disease (CAD), Chest Pain / Angina, Diabetes Mellitus, Hyperlipidemia, Hypertension, Osteoarthritis (OA) Additional Past Medical History / Comment(s): SEASONAL ALLERGIES, STATES SHE WAS TOLD START OF CIRRHOSIS, PANCREATITIS, STATES FREQUENT DIARRHEA, CRAMPING WITH GAS PAINS. History of Any Multi-Drug Resistant Organisms: None Reported Past Surgical History: Appendectomy, Heart Catheterization With Stent, Hysterectomy, Tonsillectomy Additional Past Surgical History / Comment(s): 01/08/15 PTCA with stent placement. Past Anesthesia/Blood Transfusion Reactions: No Reported Reaction Additional Past Anesthesia/Blood Transfusion Reaction / Comment(s): Pt has never recieved blood. Date of Last Stent Placement:: 01/08/15 Past Psychological History: Anxiety, Depression Smoking Status: Never smoker Past Alcohol Use History: Occasional Past Drug Use History: None Reported - Past Family History Father Additional Family Medical History / Comment(s): HEART DISEASE Mother Family Medical History: Cancer Additional Family Medical History / Comment(s): UTERINE Brother(s) Family Medical History: Cancer Additional Family Medical History / Comment(s): BLADDER General Exam - General Exam Comments Initial Comments: 64 year old female. Alert and oriented. No distress. Limitations: no limitations General appearance: alert, in no apparent distress Head exam: Present: atraumatic, normocephalic, normal inspection Eye exam: Present: normal appearance, PERRL, EOMI. Absent: scleral icterus, conjunctival injection, periorbital swelling ENT exam: Present: normal exam, mucous membranes moist Neck exam: Present: normal inspection. Absent: tenderness, meningismus, lymphadenopathy Respiratory exam: Present: normal lung sounds bilaterally. Absent: respiratory distress, wheezes, rales, rhonchi, stridor Cardiovascular Exam: Present: regular rate, normal rhythm, normal heart sounds. Absent: systolic murmur, diastolic murmur, rubs, gallop, clicks GI/Abdominal exam: Present: soft, normal bowel sounds. Absent: distended, tenderness, guarding, rebound, rigid Extremities exam: Present: normal inspection, full ROM, normal capillary refill, other. Absent: tenderness, pedal edema, joint swelling, calf tenderness Back exam: Present: normal inspection Neurological exam: Present: alert, oriented X3, CN II-XII intact Psychiatric exam: Present: normal affect, normal mood Skin exam: Present: warm, dry, intact, normal color. Absent: rash Course Vital Signs 03/22/20 11:15 Temperature 98.7 F Pulse Rate 118 H Respiratory 20 Rate Blood Pressure 159/94 O2 Sat by Pulse 95 Oximetry - Reevaluation(s) Reevaluation #1: 03/22/20 14:26 Reevaluated Patient and she is complaining of heaviness of the chest. Medical Decision Making - Medical Decision Making 64 year old female who presents emergency department today with chest discomfort having has complaints of shortness of breath. She reports that she was concerned for a blood clot if she fell on her legs days ago developed bruising and swelling and has recently complained of chest pain and a low-grade fever. Patient describes her pain is somewhat pruritic and does report some labored breathing. She has no wheezing on exam lungs sounds are clear. Chest x-ray shows some COPD and mild cardiomegaly. No pleural effusions at this time. Due to patient's history CT chest and just completed stat and showed no evidence of central pulmonary embolism however the contrast was poorly time. Her dimer was negative. She does have some bruising behind the knee and we will completed off for ultrasound. On reevaluation she still complaining of some chest heaviness and discomfort. I discussed at this time elected that the Patient for chest pain observation and will finish completing the Doppler ultrasound. Patient is agreeable to this plan. I discussed this with Dr. Chung who discussed the case with Physician. - Lab Data Result diagrams: 03/22/20 12:20 03/22/20 12:20 Lab Results 03/22/20 03/22/20 03/22/20 Range/Units 12:20 12:20 12:20 WBC 4.2 (3.8-10.6) k/uL RBC 4.44 (3.80-5.40) m/uL Hgb 14.2 (11.4-16.0) gm/dL Hct 41.8 (34.0-46.0) % MCV 94.2 (80.0-100.0) fL MCH 31.9 (25.0-35.0) pg MCHC 33.9 (31.0-37.0) g/dL RDW 13.1 (11.5-15.5) % Plt Count 161 (150-450) k/uL Neutrophils % 76 % Lymphocytes % 14 % Monocytes % 8 % Eosinophils % 1 % Basophils % 0 % Neutrophils # 3.2 (1.3-7.7) k/uL Lymphocytes # 0.6 L (1.0-4.8) k/uL Monocytes # 0.3 (0-1.0) k/uL Eosinophils # 0.0 (0-0.7) k/uL Basophils # 0.0 (0-0.2) k/uL PT 9.6 (9.0-12.0) sec INR 0.9 (<1.2) APTT 24.1 (22.0-30.0) sec D-Dimer 0.32 (<0.60) mg/L FEU Sodium 136 L (137-145) mmol/L Potassium 4.7 (3.5-5.1) mmol/L Chloride 101 (98-107) mmol/L Carbon Dioxide 25 (22-30) mmol/L Anion Gap 10 mmol/L BUN 13 (7-17) mg/dL Creatinine 0.68 (0.52-1.04) mg/dL Est GFR (CKD-EPI)AfAm >90 (>60 ml/min/1.73 sqM) Est GFR (CKD-EPI)NonAf >90 (>60 ml/min/1.73 sqM) Glucose 192 H (74-99) mg/dL Plasma Lactic Acid Winston (0.7-2.0) mmol/L Calcium 9.3 (8.4-10.2) mg/dL Magnesium 1.5 L (1.6-2.3) mg/dL Total Bilirubin 2.0 H (0.2-1.3) mg/dL AST 60 H (14-36) U/L ALT 33 (4-34) U/L Alkaline Phosphatase 133 H (38-126) U/L Troponin I (0.000-0.034) ng/mL NT-Pro-B Natriuret Pep pg/mL Total Protein 7.4 (6.3-8.2) g/dL Albumin 4.4 (3.5-5.0) g/dL 03/22/20 03/22/20 03/22/20 Range/Units 12:20 12:20 12:20 WBC (3.8-10.6) k/uL RBC (3.80-5.40) m/uL Hgb (11.4-16.0) gm/dL Hct (34.0-46.0) % MCV (80.0-100.0) fL MCH (25.0-35.0) pg MCHC (31.0-37.0) g/dL RDW (11.5-15.5) % Plt Count (150-450) k/uL Neutrophils % % Lymphocytes % % Monocytes % % Eosinophils % % Basophils % % Neutrophils # (1.3-7.7) k/uL Lymphocytes # (1.0-4.8) k/uL Monocytes # (0-1.0) k/uL Eosinophils # (0-0.7) k/uL Basophils # (0-0.2) k/uL PT (9.0-12.0) sec INR (<1.2) APTT (22.0-30.0) sec D-Dimer (<0.60) mg/L FEU Sodium (137-145) mmol/L Potassium (3.5-5.1) mmol/L Chloride (98-107) mmol/L Carbon Dioxide (22-30) mmol/L Anion Gap mmol/L BUN (7-17) mg/dL Creatinine (0.52-1.04) mg/dL Est GFR (CKD-EPI)AfAm (>60 ml/min/1.73 sqM) Est GFR (CKD-EPI)NonAf (>60 ml/min/1.73 sqM) Glucose (74-99) mg/dL Plasma Lactic Acid Winston 1.1 (0.7-2.0) mmol/L Calcium (8.4-10.2) mg/dL Magnesium (1.6-2.3) mg/dL Total Bilirubin (0.2-1.3) mg/dL AST (14-36) U/L ALT (4-34) U/L Alkaline Phosphatase (38-126) U/L Troponin I <0.012 (0.000-0.034) ng/mL NT-Pro-B Natriuret Pep 458 pg/mL Total Protein (6.3-8.2) g/dL Albumin (3.5-5.0) g/dL 03/22/20 12:23 EKG shows sinus tachycardia, otherwise normal EKG. Ventricular rate of 109 bpm. Intervals 154 ms. QRS duration is 84 ms. QT QTc is 350/[address] elevation. - Radiology Data Radiology results: report reviewed Chest x-ray/COPD and borderline cardiomegaly. Knee x-ray shows no acute osseous lesion. Osteoarthritis is noted. Markedly suboptimal examination due to poor timing of the contrast bolus. No large central PEs are identified. Degenerative changes within the spine. Disposition Clinical Impression: Chest pain, Knee contusion, Dyspnea on effort Disposition: ADMITTED IP TO THIS HOSP Condition: Stable Is patient prescribed a controlled substance at d/c from ED?: No Referrals: None,Stated [Primary Care Provider] - 1-2 days Time of Disposition: 14:46
--- NOTE | 2020-03-22 12:33 | XR ---
EXAMINATION TYPE: XR knee complete bilateral , 6 VIEWS DATE OF EXAM ORDERED: 03/22/2020 HISTORY: PE suspected, intermediate prob. COMPARISON: None. FINDINGS: There is peaking of intercondylar spines bilaterally. There is medial joint space loss aleksandr aterally. There is remodeling change in the patellofemoral joints bilaterally. No definite joint effu denisha is seen. No acute osseous lesion is seen. IMPRESSION: 1. NO ACUTE OSSEOUS LESION. 2. MODERATE OSTEOARTHRITIS.
[2020-03-22 12:35] LABS: Basophils % (A) 0 %; Eosinophils % (A) 1 %; HCT 41.8 % (34.0-46.0); HGB 14.2 gm/dL (11.4-16.0); Lymphocytes # (A) 0.6 k/uL (1.0-4.8); Lymphocytes % (A) 14 %; MCH 31.9 pg (25.0-35.0); MCHC 33.9 g/dL (31.0-37.0); MCV 94.2 fL (80.0-100.0); Mean Platelet Volume 7.9; Monocytes # (A) 0.3 k/uL (0-1.0); Monocytes % (A) 8 %; Neutrophils # (A) 3.2 k/uL (1.3-7.7); Neutrophils % (A) 76 %; Platelet Count 161 k/uL (150-450); RBC 4.44 m/uL (3.80-5.40); RDW 13.1 % (11.5-15.5); WBC 4.2 k/uL (3.8-10.6)
--- NOTE | 2020-03-22 12:35 | XR ---
EXAMINATION TYPE: XR chest 2V DATE OF EXAM: 03/22/2020 HISTORY: difficulty breathing. REFERENCE: Previous study dated 08/02/2019. FINDINGS: The lungs are overinflated. Heart size upper limits of normal. There is a partial eventrati on of the right hemidiaphragm. The lungs are clear. Pleural spaces are clear. IMPRESSION: 1. COPD. 2. BORDERLINE CARDIOMEGALY.
[2020-03-22 12:49] LABS: ALT 33 U/L (4-34); AST 60 U/L (14-36); African American GFR (CKD) >90 (>60 ml/min/1.73 sqM); Albumin 4.4 g/dL (3.5-5.0); Alkaline Phosphatase 133 U/L (38-126); Anion Gap 10 mmol/L; Blood Urea Nitrogen 13 mg/dL (7-17); Calcium 9.3 mg/dL (8.4-10.2); Carbon Dioxide 25 mmol/L (22-30); Chloride 101 mmol/L (98-107); Glucose 192 mg/dL (74-99); Magnesium 1.5 mg/dL (1.6-2.3); Non-African American GFR(CKD) >90 (>60 ml/min/1.73 sqM); Potassium 4.7 mmol/L (3.5-5.1); Sodium 136 mmol/L (137-145); Total Protein 7.4 g/dL (6.3-8.2)
[2020-03-22 12:58] LABS: D-Dimer 0.32 mg/L FEU (<0.60); INR 0.9 (<1.2); Partial Thromboplastin Time 24.1 sec (22.0-30.0); Prothrombin Time 9.6 sec (9.0-12.0)
--- NOTE | 2020-03-22 14:02 | CT ---
EXAMINATION TYPE: CT chest angio for PE DATE OF EXAM: 03/22/2020 COMPARISON: None. HISTORY: SOB CT DLP: 366.1 mGycm Automated exposure control for dose reduction was used. CONTRAST: CT Chest for pulmonary embolism performed with with IV Contrast, patient injected with 100 mL of Isov ue 370. FINDINGS: There is atelectatic change present at the lung bases. The lungs are otherwise clear. There is no significant axillary, internal mammary, mediastinal or hilar adenopathy. The contrast bolus was missed in all of the contrast is in the aorta at the time of imaging. There ar e no large central pulmonary embolus. Peripheral emboli cannot be excluded. The aorta is normal in caliber without evidence of dissection. There is no evidence of pleural or pericardial fluid. Visualized portions of the upper abdomen are un remarkable. There is hypertrophic spondylosis within the spine. IMPRESSION: 1. MARKEDLY SUBOPTIMAL EXAMINATION DUE TO POOR TIMING OF THE CONTRAST BOLUS. NO LARGE, CENTRAL PULMON VENUS EMBOLI ARE SEEN. 2. DEGENERATIVE CHANGES WITHIN THE SPINE.
[2020-03-22] MEDS ORDERED: NALOXONE 0.4 MG/ML 1 ML VIAL IV PRN (14:46)
--- NOTE | 2020-03-22 15:49 | US ---
EXAMINATION TYPE: US venous doppler duplex LE LT DATE OF EXAM: 03/22/2020 3:41 PM COMPARISON: NONE CLINICAL HISTORY: swelling. patient fell 6 days ago, bruising left knee, edema left leg. patient curr ently on blood thinners, cardiac issue SIDE PERFORMED: Left TECHNIQUE: The lower extremity deep venous system is examined utilizing real time linear array sonog lorrie with graded compression, doppler sonography and color-flow sonography. VESSELS IMAGED: External Iliac Vein (EIV) Common Femoral Vein Deep Femoral Vein Greater Saphenous Vein * Femoral Vein Popliteal Vein Small Saphenous Vein * Proximal Calf Veins (* superficial vessels) Left Leg: No evidence of DVT as visualized IMPRESSION: No evidence of deep vein thrombosis in the left leg.
--- NOTE | 2020-03-22 16:31 | P.HPIM ---
History of Present Illness H&P Date: 03/22/20 Chief Complaint: shortness of breath Patient is a 64-year-old female with coronary artery disease history of 3 stents, diabetes mellitus, hypertension, dyslipidemia, and arthritis who presented to the emergency department with complaints of shortness of breath and fevers. On arrival to the ER she underwent an extensive evaluation. Her initial vital signs showed a pulse of 118 and blood pressure of 159/94 but were otherwise normal. Initial laboratory analysis demonstrates low lymphocyte count 0.6, d-dimer normal, troponin normal 2, magnesium 1.5, bilirubin 2, AST 6, sodium 136. The remainder of her labs were normal. CTA was the sella contrast bolus did not show any large primary embolism. Chest x-ray of the knee showed no acute osseous lesion but moderate osteoarthritis. Chest x-ray showed evidence of COPD and borderline cardiomegaly. Let lower extremity venous Doppler was negative for DVT. EKG demonstrated sinus tachycardia at rate of 109, normal access, normal intervals, no significant ST-T wave changes. Patient seen and examined at bedside. She has various complaints. Reports feeling short of breath the last month ever since the [place] ballooned. She states that her shortness of breath is worse when lying flat or exerting herself. Last week she began having a cough productive of phlegm. She states she's not coughing frequently but only when she feels her congestion buildup. She also reports some nasal congestion and stuffiness. She is not having any overt chest pain but does state that exerting herself is difficult. This seems similar to when she has needed her prior stents, though not as severe as when she had her last cardiac stents placed in July 2019. She reports that last night she had a fever. This is subjective and she did not take her temperature. She reports that her joints also felt hot to touch. She reports that she had a fall last Tuesday resulting in some left knee swelling. She reports that she has had an increase in her in detail and and her arthritis pain. She has seen Dr. Brewer in the past and undergone epidural injections. She has also seen an orthopedic surgeon on of [place] and had steroid or hyaluronic acid injections into her right knee. She reports that she is also having some numbness and squeezing pain in her left leg. She also sometimes feels as though she is having cramps and not. She reports that the swelling and bruising in her left knee is getting better. She states that she has a known nerve impingements and disc disease after having a fall several year s ago. PCP Dr. Brady not able to take medicaid programs. 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 Past Medical History Past Medical History: Coronary Artery Disease (CAD), Chest Pain / Angina, Diabetes Mellitus, Hyperlipidemia, Hypertension, Osteoarthritis (OA) Additional Past Medical History / Comment(s): SEASONAL ALLERGIES, STATES SHE WAS TOLD START OF CIRRHOSIS, PANCREATITIS History of Any Multi-Drug Resistant Organisms: None Reported Past Surgical History: Appendectomy, Heart Catheterization With Stent, Hysterectomy, Tonsillectomy Additional Past Surgical History / Comment(s): 01/08/15 and 08/05/19 PTCA with stent placement (total of 3 stents) Past Anesthesia/Blood Transfusion Reactions: No Reported Reaction Additional Past Anesthesia/Blood Transfusion Reaction / Comment(s): Pt has never recieved blood. Date of Last Stent Placement:: 01/08/15 Past Psychological History: Anxiety, Depression Smoking Status: Never smoker Past Alcohol Use History: Rare Past Drug Use History: None Reported - Past Family History Father Additional Family Medical History / Comment(s): HEART DISEASE Mother Family Medical History: Cancer Additional Family Medical History / Comment(s): UTERINE Brother(s) Family Medical History: Cancer Additional Family Medical History / Comment(s): BLADDER Medications and Allergies Home Medications Medication Instructions Recorded Confirmed Type Vortioxetine Hydrobromide 10 mg PO DAILY 01/03/15 03/22/20 History [Trintellix] Atenolol [Tenormin] 100 mg PO BID tab 06/12/15 03/22/20 Rx Diclofenac Sodium [Voltaren Gel] 1 applic TOPICAL DAILY PRN 08/02/19 03/22/20 History Insulin Regular [humuLIN R] See Protocol SQ ACHS 08/02/19 03/22/20 History metFORMIN HCL [Glucophage] 500 mg PO BID 08/02/19 03/22/20 History Acetaminophen Tab [Tylenol] 650 mg PO Q6HR PRN tab 08/06/19 03/22/20 Rx Aspirin 81 mg PO DAILY chew 08/06/19 03/22/20 Rx Clopidogrel [Plavix] 75 mg PO DAILY #30 tab 08/06/19 03/22/20 Rx Losartan [Cozaar] 100 mg PO DAILY #30 tab 08/06/19 03/22/20 Rx Nitroglycerin Sl Tabs [Nitrostat] 0.4 mg SUBLINGUAL Q5M PRN #100 tab 08/06/19 03/22/20 Rx Pantoprazole [Protonix] 40 mg PO AC-BID #60 tablet.dr 08/06/19 03/22/20 Rx Albuterol Sulfate [Ventolin HFA] 1 - 2 puff INHALATION Q6H PRN 03/22/20 03/22/20 History Atorvastatin Calcium [Lipitor] 40 mg PO DAILY 03/22/20 03/22/20 History Dicyclomine HCl 20 mg PO QID PRN 03/22/20 03/22/20 History Insulin Lispro Protamin/Lispro 20 units SQ DAILY 03/22/20 03/22/20 History [humaLOG Mix 50-50 Kwikpen] Simethicone [Gas-X] 125 mg PO QID PRN 03/22/20 03/22/20 History Allergies Allergy/AdvReac Type Severity Reaction Status Date / Time venom-honey bee Allergy Unknown Rash/Hives Verified 03/22/20 17:20 [bee venom (honey bee)] Mqeofla-Bga-Qbn Reductase AdvReac MUSCLE Verified 03/22/20 17:20 Inhibitor PAIN/JOINT PAIN Physical Exam Osteopathic Statement: *. No significant issues noted on an osteopathic structural exam other than those noted in the History and Physical/Consult. Vitals: Vital Signs Temp Pulse Resp BP Pulse Ox 03/22/20 14:59 98.8 F 96 17 148/90 97 03/22/20 11:15 98.7 F 118 H 20 159/94 95 Intake and Output 03/22/20 03/22/20 03/22/20 06:59 14:59 22:59 Other: Weight 95.254 kg General: non toxic, no distress, appears at stated age, normal weight Derm: no unusual rashes/lesions no unusual ecchymoses, warm, dry Head: atraumatic, normocephalic, symmetric Eyes: EOMI, no lid lag, anicteric sclera, pupils equal round reactive to light ENT: Nose and ears atraumatic, wants to wear mask Neck: No thyromegaly, no cervical lymphadenopathy, trachea midline, supple Cardiovascular: S1S2 reg, no murmur, positive posterior tibial pulse bilateral, no edema, capillary refill less than 2 seconds, no reproducible chest pain Lungs: CTA bilateral, no rhonchi, no rales , no accessory muscle use Abdominal: soft, nontender to palpation, no guarding, no appreciable organomegaly, normal bowel sounds Ext: Ecchymosis with slight swelling left medial knee, no gross muscle atrophy, no contractures, Neuro: CN II-XI grossly intact, light touch intact all 4 extremities, Psych: Alert, oriented, appropriate affect Results CBC & Chem 7: 03/22/20 12:20 03/22/20 12:20 Labs: Abnormal Lab Results - Last 24 Hours (Table) 03/22/20 03/22/20 Range/Units 12:20 12:20 Lymphocytes # 0.6 L (1.0-4.8) k/uL Sodium 136 L (137-145) mmol/L Glucose 192 H (74-99) mg/dL Magnesium 1.5 L (1.6-2.3) mg/dL Total Bilirubin 2.0 H (0.2-1.3) mg/dL AST 60 H (14-36) U/L Alkaline Phosphatase 133 H (38-126) U/L Chest x-ray: report reviewed CT scan - chest: report reviewed Thrombosis Risk Factor Assmnt - DVT/VTE Prophylaxis DVT/VTE Prophylaxis: Pharmacologic Prophylaxis ordered Assessment and Plan Assessment: Exertional Dyspnea - CTA negative - CXR negative - echo - Consult cardio for possible anginal equilivent - ASA, lipitor CAD - ASA, plavix, lipitor Chronic back pain with radiculopathy - outpatient follow up with Dr. Bauer for further recommendations HTN - controlled - home norvasc, cozaar, imdur, atenolol HLD - lipitor DM 2 - hold metformin - Hold lispto 50/50 - [place] 10 units this evening - SSI Seasonal allergies - claritin - flonase Peptic ulcer disease - Protonix The patient is placed in observation with an anticipated less than 2 midnight stay for evaluation of exertional dyspnea. Surrogate decision-maker: significant other- theresa CODE STATUS:full DVT prophylaxis: scds Anticipated discharge date: in AM Anticipated discharge place: home
[2020-03-22] MEDS ORDERED: ONDANSETRON 4 MG/2 ML VIAL IVP PRN (17:11)
[2020-03-22] MEDS ORDERED: traMADol 50 MG TAB PO PRN (17:11)
[2020-03-22] MEDS ORDERED: ACETAMINOPHEN TAB 325 MG TAB PO PRN (17:11)
[2020-03-22] MEDS ORDERED: DICYCLOMINE 20 MG TAB PO PRN (17:39)
[2020-03-22] MEDS ORDERED: ALBUTEROL HFA INHALER INHALATION PRN (17:39)
[2020-03-22] MEDS ORDERED: DICLOFENAC SODIUM GEL 100 GM TUBE TOPICAL PRN (17:39)
[2020-03-22] MEDS ORDERED: SIMETHICONE 80 MG CHEWABLE PO PRN (17:39)
[2020-03-22] MEDS: ASPIRIN 81 MG PO SCH (19:47)
[2020-03-22] MEDS: SODIUM CHLORIDE 0.9% 1,000 ML IV SCH (19:47)
[2020-03-22] MEDS: ATENOLOL 50 MG TAB PO SCH (21:49)
[2020-03-23] MEDS: SODIUM CHLORIDE 0.9% 1,000 ML IV SCH ×2 (01:25→09:15)
--- NOTE | 2020-03-23 06:39 | XR ---
EXAMINATION TYPE: XR chest 1V portable DATE OF EXAM: 03/23/2020 HISTORY: shortness of breath. REFERENCE: Previous study dated 03/22/2020. FINDINGS: Heart size is prominent. There is a partial eventration of the right hemidiaphragm. The ankur gs are clear. Pleural spaces are clear. IMPRESSION: MILD CARDIOMEGALY.
[2020-03-23 06:41] LABS: Glucose,Whole Blood 147 mg/dL (75-99)
[2020-03-23] MEDS ORDERED: Magnesium Replacement Protocol 1 EACH MISC MISCELLANE PRN (06:57)
[2020-03-23] MEDS: MAGNESIUM SULFATE-D5W PMX 1 GM in DEXTROSE/WATER 1 100ML.BAG IVPB SCH ×2 (07:18→09:10)
[2020-03-23] MEDS: ATENOLOL 50 MG TAB PO SCH ×2 (07:30→21:54)
[2020-03-23] MEDS: ASPIRIN 81 MG PO SCH (07:30)
[2020-03-23] MEDS: CLOPIDOGREL 75 MG TAB PO SCH (07:30)
[2020-03-23] MEDS: LOSARTAN 50 MG TAB PO SCH (07:30)
[2020-03-23] MEDS: ATORVASTATIN 40 MG TAB PO SCH (07:30)
[2020-03-23] MEDS: VORTIOXETINE HYDROBROMIDE 10 MG TABLET PO SCH (07:30)
[2020-03-23] MEDS: PANTOPRAZOLE 40 MG TABLET PO SCH ×2 (07:30→18:18)
[2020-03-23] MEDS ORDERED: SODIUM CHLORIDE 0.9% 1,000 ML in EMPTY BAG 1 BAG IV ONE (08:52)
[2020-03-23] MEDS ORDERED: ATORVASTATIN 80 MG TAB PO STA (08:52)
[2020-03-23] MEDS ORDERED: NITROGLYCERIN SL TABS 0.4 MG TAB SUBLINGUAL PRN (08:52)
[2020-03-23] MEDS ORDERED: ALPRAZolam 0.25 MG TAB PO PRN (08:52)
[2020-03-23] MEDS ORDERED: ASPIRIN 325 MG TAB PO STA (08:52)
[2020-03-23] MEDS ORDERED: ALPRAZolam 0.5 MG TAB PO PRN (08:52)
--- NOTE | 2020-03-23 09:36 | CONS ---
CONSULTATION Mrs. Gallo is a 64-year-old female with history of diabetes who presented with progressive dyspnea, symptoms of chest discomfort and lower extremities weakness. She has known history of back discomfort with neuropathy. She has been weak in her legs and has fallen down last week with injuring the left knee. For the last few weeks, she has been complaining of chest pressure whenever she exerts herself reminding her somewhat of the symptoms she had prior to her percutaneous revascularization. She is followed on a regular basis by Dr. Dakota Ness and was here in the hospital in July of 2019 and at that time underwent cardiac catheterization, that revealed a 40% disease in the mid PDA, patent stent to the LAD with mild to moderate disease with significant obstructive disease in the left circumflex. She underwent stenting of the left circumflex using a 3.25 Xience stent and a 2.5 x 15 mm Xience stent. She has done reasonably well, although she started to complain of the symptoms recently. The symptoms have been going on for the last few weeks. She has no significant peripheral edema, but she has swelling in the knee. She has no clear PND, orthopnea. No palpitation. No syncope. She feels that the symptoms are reminding her somewhat of the way she felt during her last admission. Her current coronary risk factors are remarkable for diabetes. She is hypertensive and hyperlipidemic. MEDICATIONS: Include aspirin once a day, Tenormin 100 mg twice a day, Lipitor 40 mg daily, Plavix 75 mg daily, insulin, Cozaar 100 mg daily, Trintellix and Glucophage 500 mg twice a day. REVIEW OF SYSTEMS: RESPIRATORY system: She has dyspnea on exertion. No recent wheezing or cough. GI system: No recent GI bleeding. She had a prior history of bleeding ulcer that has been stable. system: No dysuria or hematuria recently. Nervous system: No stroke or seizure. Musculoskeletal: She has severe back discomfort. PHYSICAL EXAMINATION: She is a 64-year-old female, alert, oriented, in no apparent distress. Blood pressure running in the 140s to 170s with a heart rate in 70s. HEAD: Normocephalic. Eyes sclerae anicteric. NECK good upstroke. No bruit. No jugular venous distention. LUNGS: Clear to auscultation. HEART: Regular rate and rhythm S1, S2. No S3 with a systolic murmur heard at the base. No diastolic murmur. No rub. ABDOMEN: Soft, obese, nontender. Positive bowel sounds. No organomegaly. EXTREMITIES: No edema. Ecchymoses noted on the left lower extremity. LAB DATA: Revealed a hemoglobin 14.2, white blood cell 4.2, platelet count of 161. Troponin less than 0.012. Total bilirubin of 2.0. BUN and creatinine 13 and 0.68. NT proBNP of 458. EKG revealed a sinus mechanism, rate of [address]-T wave changes. Duplex scan of the lower extremities revealed no acute DVT. CT angiogram of the chest was suboptimal, but no evidence of pulmonary embolism. Chest x-ray showed no acute infiltrate. IMPRESSION: 1. Symptoms of chest discomfort, highly suggestive of coronary artery disease in a patient with known history of coronary artery disease, prior percutaneous revascularization. 2. Symptoms of back discomfort, chronic. 3. Chronic dyspnea on exertion. 4. Hypertension. 5. Hyperlipidemia. 6. Elevated bilirubin. RECOMMENDATION: I have recommended proceeding with coronary angiography to assess her status and guide her treatment. The procedure will be done tomorrow by Dr. Dakota Ness. I have also recommended to obtain echocardiogram with Doppler. We will re-evaluate her bilirubin to rule out any significant changes and depending on her progress, further recommendation will be made. Thank you for this consult. We will follow with you. VERONA / AWA: [id number] /
[2020-03-23] MEDS: HYDROCHLOROTHIAZIDE 25 MG TAB PO SCH (09:37)
[2020-03-23 09:47] LABS: Cholesterol 166 mg/dL (<200); HDL Cholesterol 37 mg/dL (40-60); LDL Cholesterol,Calculated 97 mg/dL (0-99); Triglycerides 159 mg/dL (<150)
--- NOTE | 2020-03-23 11:42 | P.PN ---
Subjective Progress Note Date: 03/23/20 (delayed cahrting seen at 10am) Principal diagnosis: exertional dyspnea Patient is a 64-year-old female with coronary artery disease history of 3 stents, diabetes mellitus, hypertension, dyslipidemia, and arthritis who presented to the emergency department with complaints of shortness of breath and fevers. On arrival to the ER she underwent an extensive evaluation. Her initial vital signs showed a pulse of 118 and blood pressure of 159/94 but were otherwise normal. Initial laboratory analysis demonstrates low lymphocyte count 0.6, d-dimer normal, troponin normal 2, magnesium 1.5, bilirubin 2, AST 6, sodium 136. The remainder of her labs were normal. CTA had sub optimal contrast bolus but did not show any large primary embolism. X-ray of the knee showed no acute osseous lesion but moderate osteoarthritis. Chest x-ray showed evidence of COPD and borderline cardiomegaly. Left lower extremity venous Doppler was negative for DVT. EKG demonstrated sinus tachycardia at rate of 109, normal access, normal intervals, no significant ST-T wave changes. She was admitted for exertional dyspnea. Her troponin remained negative. She was seen by cardio and plan is for cath 03/24 Patient seen and examined at bedside. She continues to have exertional dyspnea which she states has a ball between yesterday and today, she is having some chest pressure when walking. She denies any nausea or vomiting. No change in her cough. Objective - Vital Signs Vital signs: Vital Signs Temp 98 F 03/23/20 07:49 Pulse 70 03/23/20 08:00 Resp 18 03/23/20 08:00 BP 155/83 03/23/20 09:36 Pulse Ox 95 03/23/20 07:49 Intake & Output 03/22/20 03/23/20 03/23/20 18:59 06:59 18:59 Weight 95.254 kg 96.4 kg Other: Voiding Method Toilet Toilet # Voids 1 - Exam General: non toxic, no distress, appears at stated age Derm: warm, dry Head: atraumatic, normocephalic, symmetric Eyes: EOMI, no lid lag, anicteric sclera Mouth: no lip lesion, mucus membranes moist Cardiovascular: S1S2 reg, no murmur, positive posterior tibial pulse bilateral, Lungs: CTA bilateral, no rhonchi, no rales , no accessory muscle use Abdominal: soft, nontender to palpation, no guarding, no appreciable organomegaly Ext: swelling and bruising left knee, no gross muscle atrophy, no edema, no contractures Neuro: CN II-XI grossly intact, no focal neuro deficits Psych: Alert, oriented, appropriate affect - Labs CBC & Chem 7: 03/22/20 12:20 03/22/20 12:20 Labs: Abnormal Lab Results - Last 24 Hours (Table) 03/22/20 03/22/20 03/23/20 Range/Units 12:20 12:20 00:34 Lymphocytes # 0.6 L (1.0-4.8) k/uL Sodium 136 L (137-145) mmol/L Glucose 192 H (74-99) mg/dL POC Glucose (mg/dL) (75-99) mg/dL Magnesium 1.5 L (1.6-2.3) mg/dL Total Bilirubin 2.0 H (0.2-1.3) mg/dL AST 60 H (14-36) U/L Alkaline Phosphatase 133 H (38-126) U/L Triglycerides 159 H (<150) mg/dL HDL Cholesterol 37 L (40-60) mg/dL 03/23/20 Range/Units 06:39 Lymphocytes # (1.0-4.8) k/uL Sodium (137-145) mmol/L Glucose (74-99) mg/dL POC Glucose (mg/dL) 147 H (75-99) mg/dL Magnesium (1.6-2.3) mg/dL Total Bilirubin (0.2-1.3) mg/dL AST (14-36) U/L Alkaline Phosphatase (38-126) U/L Triglycerides (<150) mg/dL HDL Cholesterol (40-60) mg/dL Assessment and Plan Assessment: Exertional Dyspnea with concern for unstable angina with hx of CAD - CTA negative - CXR negative - echo pending - Cardio recs appreciated: cath in AM - ASA, lipitor, plavix, BB - stop nitro paste and rsume imdur - last cath 08/14 [facility] placemnet of sent X2 in the RCA Chronic back pain with radiculopathy - outpatient follow up with Dr. Bauer for further recommendations HTN - controlled - home norvasc, cozaar, imdur, atenolol HLD - lipitor DM 2 - hold metformin - Hold lisp5o 50/50 - SSI Seasonal allergies - claritin - flonase Peptic ulcer disease - Protonix CODE STATUS:full DVT prophylaxis: scds Anticipated discharge date: 24-[address]: home
[2020-03-23 11:52] LABS: Glucose,Whole Blood 201 mg/dL (75-99)
[2020-03-23] MEDS: INSULIN ASPART (NovoLOG) 100 UNIT/ML VIAL SQ SCH ×3 (13:27→21:54)
[2020-03-23 15:26] LABS: Glucose,Whole Blood 236 mg/dL (75-99)
[2020-03-23 17:06] LABS: Glucose,Whole Blood 201 mg/dL (75-99)
[2020-03-23] MEDS ORDERED: amLODIPine 5 MG TAB PO STA (18:16)
[2020-03-23 21:22] LABS: Glucose,Whole Blood 189 mg/dL (75-99)
[2020-03-24] MEDS: ATENOLOL 50 MG TAB PO SCH ×2 (06:34→21:18)
[2020-03-24] MEDS: ATORVASTATIN 40 MG TAB PO SCH (06:34)
[2020-03-24] MEDS: PANTOPRAZOLE 40 MG TABLET PO SCH ×2 (06:34→17:51)
[2020-03-24] MEDS: CLOPIDOGREL 75 MG TAB PO SCH (06:34)
[2020-03-24] MEDS: amLODIPine 5 MG TAB PO SCH (06:34)
[2020-03-24] MEDS: LOSARTAN 50 MG TAB PO SCH (06:34)
[2020-03-24] MEDS: HYDROCHLOROTHIAZIDE 25 MG TAB PO SCH (06:35)
[2020-03-24] MEDS: ASPIRIN 81 MG PO SCH (06:35)
[2020-03-24] MEDS: VORTIOXETINE HYDROBROMIDE 10 MG TABLET PO SCH (06:36)
[2020-03-24] MEDS ORDERED: ASPIRIN 325 MG TAB PO STA (06:42)
[2020-03-24] MEDS ORDERED: ATORVASTATIN 80 MG TAB PO STA (06:43)
[2020-03-24 06:54] LABS: Glucose,Whole Blood 167 mg/dL (75-99)
[2020-03-24 08:05] LABS: ALT 36 U/L (4-34); AST 48 U/L (14-36); African American GFR (CKD) >90 (>60 ml/min/1.73 sqM); Albumin 3.7 g/dL (3.5-5.0); Alkaline Phosphatase 124 U/L (38-126); Anion Gap 8 mmol/L; Blood Urea Nitrogen 9 mg/dL (7-17); Calcium 8.8 mg/dL (8.4-10.2); Carbon Dioxide 26 mmol/L (22-30); Chloride 103 mmol/L (98-107); Glucose 179 mg/dL (74-99); Non-African American GFR(CKD) >90 (>60 ml/min/1.73 sqM); Potassium 4.4 mmol/L (3.5-5.1); Sodium 137 mmol/L (137-145); Total Bilirubin 0.9 mg/dL (0.2-1.3); Total Protein 6.5 g/dL (6.3-8.2)
[2020-03-24] MEDS: INSULIN ASPART (NovoLOG) 100 UNIT/ML VIAL SQ SCH ×4 (09:05→21:19)
[2020-03-24] MEDS ORDERED: Magnesium Replacement Protocol 1 EACH MISC MISCELLANE PRN (09:37)
--- NOTE | 2020-03-24 09:40 | P.PN ---
Subjective This is a pleasant 64-year-old female past medical history significant for coronary artery disease status post PCI diabetes mellitus, hypertension and dyslipidemia. She follows in the office with Dr. Ness. We are following secondary to unstable angina. The patient is scheduled to undergo cardiac catheterization today, however due to scheduling conflicts the procedure will be postponed until tomorrow morning. She is seen and examined. Ambulating in the room brushing her teeth. She states yesterday she was having significant cr amping in her lower extremities so she was pacing her room. After about 2 minutes of steady pacing she started feeling a pressure in the midsternal region associated with dyspnea. Once she sat down and rested for a couple of minutes her symptoms did subside. She denies dizziness or palpitations. Blood pressure 157/83 heart rate 66 afebrile maintaining oxygen saturation on room air. Laboratory data reviewed, sodium 137, potassium 4.4, creatinine 0.69, magnesium 1.5, total bilirubin 0.9. Currently maintained on amlodipine 5 mg daily, aspirin 81 mg daily, atenolol 100 mg twice a day, atorvastatin 40 mg daily, Plavix 75 mg daily, hydrochlorothiazide 25 mg daily and losartan 100 mg daily. GENERAL: Well-appearing, well-nourished and in no acute distress. NECK: Supple without JVD or thyromegaly. LUNGS: Breath sounds clear to auscultation bilaterally. Respiration equal and unlabored. No wheezes, rales or rhonchi. HEART: Regular rate and rhythm with systolic ejection murmur at the left sternal border, no rubs or gallops. S1 and S2 heard. EXTREMITIES: Normal range of motion, no edema. No clubbing or cyanosis. Peripheral pulses intact. ASSESSMENT Unstable angina Hypomagnesemia, ongoing after replacement History of coronary artery disease status post PCI Hypertension Dyslipidemia Elevated bilirubin, resolved PLAN Replace magnesium per protocol. She may eat a diabetic diet today and will be NPO after midnight tonight for catheterization tomorrow morning. The plan has been discussed with the patient in detail. Further recommendations to follow based on clinical course. Nurse Practitioner note has been reviewed, I agree with a documented findings and plan of care. Patient was seen and examined. Objective - Vital Signs Vital signs: Vital Signs Temp 97.8 F 03/24/20 07:52 Pulse 66 03/24/20 07:52 Resp 16 03/24/20 07:52 BP 157/83 03/24/20 07:52 Pulse Ox 95 03/24/20 07:52 Intake & Output 03/23/20 03/24/20 03/24/20 18:59 06:59 18:59 Intake Total 0 118 Balance 0 118 Intake: Oral 0 118 Other: Voiding Method Toilet Toilet Toilet # Voids 3 1 1 - Labs CBC & Chem 7: 03/22/20 12:20 03/24/20 07:14 Labs: Abnormal Lab Results - Last 24 Hours (Table) 03/23/20 03/23/20 03/23/20 Range/Units 00:34 11:50 15:25 Glucose (74-99) mg/dL POC Glucose (mg/dL) 201 H 236 H (75-99) mg/dL Magnesium (1.6-2.3) mg/dL AST (14-36) U/L ALT (4-34) U/L Triglycerides 159 H (<150) mg/dL HDL Cholesterol 37 L (40-60) mg/dL 03/23/20 03/23/20 03/24/20 Range/Units 17:04 21:20 06:52 Glucose (74-99) mg/dL POC Glucose (mg/dL) 201 H 189 H 167 H (75-99) mg/dL Magnesium (1.6-2.3) mg/dL AST (14-36) U/L ALT (4-34) U/L Triglycerides (<150) mg/dL HDL Cholesterol (40-60) mg/dL 03/24/20 03/24/20 Range/Units 07:14 07:14 Glucose 179 H (74-99) mg/dL POC Glucose (mg/dL) (75-99) mg/dL Magnesium 1.5 L (1.6-2.3) mg/dL AST 48 H (14-36) U/L ALT 36 H (4-34) U/L Triglycerides (<150) mg/dL HDL Cholesterol (40-60) mg/dL Microbiology - Last 24 Hours (Table) 03/22/20 15:10 Blood Culture - Preliminary Blood No Growth after 24 hours
[2020-03-24] MEDS: MAGNESIUM SULFATE-D5W PMX 1 GM in DEXTROSE/WATER 1 100ML.BAG IVPB SCH ×2 (10:53→12:09)
[2020-03-24 11:34] LABS: Glucose,Whole Blood 233 mg/dL (75-99)
--- NOTE | 2020-03-24 12:14 | ECHOF ---
Referral Reason:cad MEASUREMENTS -------- HEIGHT: 152.4 cm WEIGHT: 96.2 kg BP: IVSd: 1.2 cm (0.6 - 1.1) LVIDd: 4.4 cm (3.9 - 5.3) LVPWd: 1.4 cm (0.6 - 1.1) IVSs: 1.6 cm LVIDs: 3.1 cm LVPWs: 2.0 cm LA Diam: 4.9 cm (2.7 - 3.8) LAESV Index (A-L): 42.56 ml/m Ao Diam: 3.0 cm (2.0 - 3.7) AV Cusp: 1.4 cm (1.5 - 2.6) LA Diam: 5.1 cm (2.7 - 3.8) MV EXCURSION: 14.837 mm (> 18.000) MV EF SLOPE: 45 mm/s (70 - 150) EPSS: 0.4 cm MV E Jeremy: 0.60 m/s MV DecT: 313 ms MV A Jeremy: 1.21 m/s MV E/A Ratio: 0.50 RAP: 5.00 mmHg RVSP: 30.43 mmHg FINDINGS -------- Sinus rhythm. This was a technically adequate study. The left ventricular size is normal. There is mild concentric left ventricular hypertrophy. Overa ll left ventricular systolic function is normal with, an EF between 55 - 60 %. The right ventricle is normal in size. The left atrium is markedly dilated. LA is severely dilated >40 ml/m2 The right atrial size is normal. There is mild aortic valve sclerosis. There is no evidence of aortic regurgitation. The mitral valve leaflets are moderately thickened. Mild mitral regurgitation is present. The pe ak and mean MV gradients are 6.90mmHg 2.13mmHg as measured by doppler. Right ventricular systolic pressure is normal at < 35 mmHg. There is no pulmonic regurgitation present. The aortic root size is normal. There is no pericardial effusion. CONCLUSIONS -------- 1. Sinus rhythm. 2. This was a technically adequate study. 3. The left ventricular size is normal. 4. There is mild concentric left ventricular hypertrophy. 5. Overall left ventricular systolic function is normal with, an EF between 55 - 60 %. 6. The right ventricle is normal in size. 7. The left atrium is markedly dilated. 8. LA is severely dilated >40 ml/m2 9. The right atrial size is normal. 10. There is mild aortic valve sclerosis. 11. The mitral valve leaflets are moderately thickened. 12. Mild mitral regurgitation is present. 13. The peak and mean MV gradients are 6.90mmHg 2.13mmHg as measured by doppler. 14. Right ventricular systolic pressure is normal at < 35 mmHg. 15. There is no pulmonic regurgitation present. 16. The aortic root size is normal. 17. There is no pericardial effusion. STEEL WORKER: Mahsa Sheldon RDCS
--- NOTE | 2020-03-24 14:13 | P.PN ---
Subjective Progress Note Date: 03/24/20 Principal diagnosis: Chest pain, lower back pain Patient was seen and examined. No acute events overnight. Patient reports no chest pain at this time. She does report exertional shortness of breath and chest pain recently, plans for cardiac catheterization tomorrow. Patient continues to report lower back pain. States that she saw Dr. Bauer 3 years ago and is underwent extensive imaging in the past. MRI from 2018 shows multilevel degenerative disc disease with grade 1 anterolisthesis L4 on L5 resulting in severe canal stenosis. She did report bladder incontinence in the past but none currently. She reports worsening instability of her bilateral lower extremities along with neuropathy. Objective - Vital Signs Vital signs: Vital Signs Temp 97.8 F 03/24/20 07:52 Pulse 64 03/24/20 12:00 Resp 16 03/24/20 12:00 BP 168/85 03/24/20 12:00 Pulse Ox 97 03/24/20 12:00 Intake & Output 03/23/20 03/24/20 03/24/20 18:59 06:59 18:59 Intake Total 0 2049 Balance 0 2049 Intake: Intake, IV Titration 1152 Amount Sodium Chloride 0.9% 1, 1152 000 ml In Empty Bag 1 bag @ 1 ML/KG/HR 96.4 mls/hr IV .[id number] ONE Rx#: [id number] Oral 0 898 Other: Voiding Method Toilet Toilet Toilet # Voids 3 1 3 - Exam General: [non toxic], [no distress], [appears at stated age] Derm: [warm], [dry] Head: [atraumatic], [normocephalic], [symmetric] Eyes: [EOMI], [no lid lag], [anicteric sclera] Mouth: [no lip lesion], [mucus membranes moist] Cardiovascular: [S1S2 reg], [no murmur], [positive DP pulse bilateral], Lungs: [CTA bilateral], [no rhonchi, no rales] , [no accessory muscle use] Abdominal: [soft], [ nontender to palpation], [no guarding], [no appreciable organomegaly] Ext: [no gross muscle atrophy], [no edema], [no contractures], [swelling behind the left knee], [vertebrae nontender to palpation] Neuro: [no focal neuro deficits] Psych: [Alert], [oriented], [appropriate affect] - Labs CBC & Chem 7: 03/22/20 12:20 03/24/20 07:14 Labs: Abnormal Lab Results - Last 24 Hours (Table) 03/23/20 03/23/20 03/23/20 Range/Units 15:25 17:04 21:20 Glucose (74-99) mg/dL POC Glucose (mg/dL) 236 H 201 H 189 H (75-99) mg/dL Magnesium (1.6-2.3) mg/dL AST (14-36) U/L ALT (4-34) U/L 03/24/20 03/24/20 03/24/20 Range/Units 06:52 07:14 07:14 Glucose 179 H (74-99) mg/dL POC Glucose (mg/dL) 167 H (75-99) mg/dL Magnesium 1.5 L (1.6-2.3) mg/dL AST 48 H (14-36) U/L ALT 36 H (4-34) U/L 03/24/20 Range/Units 11:27 Glucose (74-99) mg/dL POC Glucose (mg/dL) 233 H (75-99) mg/dL Magnesium (1.6-2.3) mg/dL AST (14-36) U/L ALT (4-34) U/L Microbiology - Last 24 Hours (Table) 03/22/20 15:10 Blood Culture - Preliminary Blood No Growth after 24 hours Assessment and Plan Assessment: Exertional Dyspnea with concern for unstable angina with hx of CAD - CTA negative - CXR negative - echo shows EF 55-60% with mild concentric LVH - Cardio recs appreciated: Cardiac cath planned for tomorrow - ASA, lipitor, plavix, BB -Resume imdur - last cath 08/14 with placemnet of sent X2 in the RCA Chronic back pain with radiculopathy, history of spinal canal stenosis -We will consult orthopedic surgery along with PT and OT for further recommendations Hypomagnesemia -Replace via protocol HTN - controlled - home norvasc, cozaar, imdur, atenolol HLD - lipitor DM 2 - hold metformin - SSI Seasonal allergies - claritin - flonase Peptic ulcer disease - Protonix [Patient admitted for exertional dyspnea. Cardiac cath planned for tomorrow. Continues to complain of lower back pain with radiculopathy, orthopedic surgeon PT consulted. She is pending clinical improvement. Likely DC in 1-2 days.]
[2020-03-24 17:05] LABS: Glucose,Whole Blood 198 mg/dL (75-99)
[2020-03-24 20:20] LABS: Glucose,Whole Blood 244 mg/dL (75-99)
[2020-03-25] MEDS: LOSARTAN 50 MG TAB PO SCH (05:41)
[2020-03-25] MEDS: CLOPIDOGREL 75 MG TAB PO SCH (05:41)
[2020-03-25] MEDS: PANTOPRAZOLE 40 MG TABLET PO SCH ×2 (05:41→17:49)
[2020-03-25] MEDS: amLODIPine 5 MG TAB PO SCH (05:42)
[2020-03-25] MEDS: ASPIRIN 81 MG PO SCH ×2 (05:42→08:20)
[2020-03-25] MEDS: ATENOLOL 50 MG TAB PO SCH ×2 (05:42→21:21)
[2020-03-25] MEDS: ATORVASTATIN 40 MG TAB PO SCH (05:43)
[2020-03-25] MEDS ORDERED: ASPIRIN 325 MG TAB PO ONE (06:00)
[2020-03-25] MEDS ORDERED: ATORVASTATIN 80 MG TAB PO ONE (06:00)
[2020-03-25] MEDS: VORTIOXETINE HYDROBROMIDE 10 MG TABLET PO SCH (06:01)
[2020-03-25] MEDS: HYDROCHLOROTHIAZIDE 25 MG TAB PO SCH (06:01)
[2020-03-25 06:09] LABS: Glucose,Whole Blood 174 mg/dL (75-99)
[2020-03-25] MEDS: INSULIN ASPART (NovoLOG) 100 UNIT/ML VIAL SQ SCH ×4 (08:12→21:22)
[2020-03-25] MEDS ORDERED: amLODIPine 5 MG TAB PO STA (08:26)
[2020-03-25] MEDS ORDERED: IV FLUID CONTINUATION 800 ML IV ONE (09:05)
[2020-03-25] MEDS ORDERED: VERAPAMIL 2.5 MG/ML 2 ML AMP ONE (09:18)
[2020-03-25] MEDS ORDERED: LIDOCAINE 1% INJ 10MG/ML (20 ML MDV) ONE (09:18)
[2020-03-25] MEDS ORDERED: MIDAZOLAM 2 MG/2 ML VIAL IV ONE (09:49)
[2020-03-25] MEDS ORDERED: LIDOCAINE 1% INJ 10MG/ML (20 ML MDV) SQ ONE (09:56)
[2020-03-25] MEDS ORDERED: VERAPAMIL SYRINGE (5 MG/10 ML) INTRAARTER ONE (09:58)
[2020-03-25] MEDS ORDERED: BIVALIRUDIN BOLUS 250 MG/50 ML IV ONE (10:25)
[2020-03-25] MEDS ORDERED: BIVALIRUDIN 250 MG in SODIUM CHLORIDE 0.9% 50 ML IV ONE (10:26)
[2020-03-25] MEDS: NITROGLYCERIN 1000MCG/10ML SYRINGE INTRACORON ONE ×2 (10:30→11:00)
[2020-03-25] MEDS ORDERED: ADENOSINE 90 MG in SODIUM CHLORIDE 0.9% 60 ML IVP ONE (10:33)
[2020-03-25] MEDS ORDERED: IOPAMIDOL-370 100ML BTL INJ ONE ×2 (10:41→11:00)
[2020-03-25] MEDS ORDERED: CLOPIDOGREL 75 MG TAB ONE (11:06)
[2020-03-25] MEDS ORDERED: CLOPIDOGREL 75 MG TAB PO ONE (11:11)
[2020-03-25] MEDS ORDERED: ATROPINE SULFATE 0.1 MG/ML 10ML SYRINGE IV PRN (11:13)
[2020-03-25] MEDS ORDERED: ZOLPIDEM 5 MG TAB PO PRN (11:13)
[2020-03-25] MEDS ORDERED: MAG HYDROX/AL HYDROX/SIMETH 30 ML CUP PO PRN (11:13)
[2020-03-25] MEDS ORDERED: RX INFO: IV CONTRAST WAS GIVEN 1 EACH MISC MISCELLANE PRN (11:13)
--- NOTE | 2020-03-25 11:15 | P.PN ---
Progress Note - Text Progress Note Date: 03/25/20 Patient was attempted to be seen and examined at the bedside in the observation unit in regards to her low back pain and lower extremity radiculopathy. We have reviewed previous MRI imaging from 2018 which showed evidence of L4-5 spondylolisthesis and severe spinal canal stenosis and bilateral neural foraminal encroachment. She also had degenerative changes with facet hypertrophy at L1-2 and L3-4. Based on her previous imaging, she has indications for surgical intervention. We would plan to obtain a new MRI of the lumbar spine for further evaluation as her previous MRI was performed almost 2 years ago. She is currently undergoing further workup from a cardiac standpoint. We would plan to work through conservative treatment first before discussing the possibility of surgical intervention. We may also plan for consultation with pain management. We will plan to follow back up with the patient for further evaluation and we'll discuss the possibility of obtaining a new MRI of her lumbar spine. If she undergoes cardiac stent placement, she'll most likely be unable to have an MRI of her lumbar spine for approximate 6 weeks.
[2020-03-25 17:00] LABS: Glucose,Whole Blood 305 mg/dL (75-99)
--- NOTE | 2020-03-25 17:18 | P.PN ---
Subjective Progress Note Date: 03/25/20 Principal diagnosis: Chest pain, lower back pain Patient was seen and examined. No acute events overnight. Seen after cardiac cath. Underwent successful stent placement. Patient denies any chest pain, shortness of breath or palpitations. No nausea or vomiting. No fever or chills. Patient continues to report lower back pain. States that she saw Dr. Bauer 3 years ago and is underwent extensive imaging in the past. MRI from 2018 shows multilevel degenerative disc disease with grade 1 anterolisthesis L4 on L5 resulting in severe canal stenosis. She did report bladder incontinence in the past but none currently. She reports worsening instability of her bilateral lo wer extremities along with neuropathy. Objective - Vital Signs Vital signs: Vital Signs Temp 97.7 F 03/25/20 08:00 Pulse 67 03/25/20 14:59 Resp 16 03/25/20 14:59 BP 139/70 03/25/20 14:59 Pulse Ox 94 L 03/25/20 14:59 Intake & Output 03/24/20 03/25/20 03/25/20 18:59 06:59 18:59 Intake Total 2290 600 252.58 Balance 2290 600 252.58 Intake: IV 252.58 Intake, IV Titration 1152 Amount Sodium Chloride 0.9% 1, 1152 000 ml In Empty Bag 1 bag @ 1 ML/KG/HR 96.4 mls/hr IV .[id number] ONE Rx#: [id number] Oral 1138 600 Other: Voiding Method Toilet Toilet # Voids 3 1 - Exam General: [non toxic], [no distress], [appears at stated age] Derm: [warm], [dry] Head: [atraumatic], [normocephalic], [symmetric] Eyes: [EOMI], [no lid lag], [anicteric sclera] Mouth: [no lip lesion], [mucus membranes moist] Cardiovascular: [S1S2 reg], [no murmur], [positive DP pulse bilateral], Lungs: [CTA bilateral], [no rhonchi, no rales] , [no accessory muscle use] Abdominal: [soft], [ nontender to palpation], [no guarding], [no appreciable organomegaly] Ext: [no gross muscle atrophy], [no edema], [no contractures], [swelling behind the left knee], [vertebrae nontender to palpation] Neuro: [no focal neuro deficits] Psych: [Alert], [oriented], [appropriate affect] - Labs CBC & Chem 7: 03/22/20 12:20 03/24/20 07:14 Labs: Abnormal Lab Results - Last 24 Hours (Table) 03/24/20 03/25/20 03/25/20 Range/Units 20:18 06:07 16:57 POC Glucose (mg/dL) 244 H 174 H 305 H (75-99) mg/dL Microbiology - Last 24 Hours (Table) 03/22/20 15:10 Blood Culture - Preliminary Blood No Growth after 48 hours Assessment and Plan Assessment: Exertional Dyspnea with concern for unstable angina with hx of CAD - CTA negative - CXR negative - echo shows EF 55-60% with mild concentric LVH - Cardio recs appreciated: Cardiac cath today performed with stent placement - ASA, lipitor, plavix, BB -Resume imdur - last cath 08/14 with placemnet of sent X2 in the RCA Chronic back pain with radiculopathy, history of spinal canal stenosis -Orthopedic surgery recommends repeat MRI lumbar spine likely will need to be done in the outpatient setting -Follow-up ultrasound of left posterior knee to evaluate swelling HTN - controlled - home norvasc, cozaar, imdur, atenolol HLD - lipitor DM 2 - hold metformin - SSI Seasonal allergies - claritin - flonase Peptic ulcer disease - Protonix [Patient admitted for exertional dyspnea. Cardiac cath performed today with stent placement. Continues to complain of lower back pain with radiculopathy, orthopedic surgery and PT consulted. She is pending clinical improvement. Likely DC in 1-2 days.]
--- NOTE | 2020-03-25 17:56 | CC ---
CARDIAC CATHETERIZATION REPORT DATE OF SERVICE: 03/25/2020 PROCEDURE: 1. Left heart catheterization and coronary angiography. 2. Fractional flow reserve assessment of circumflex marginal lesion. 3. Percutaneous transluminal coronary angioplasty and stenting of a complex calcified mid/distal large-caliber left anterior descending coronary artery. PERFORMED BY: Dr. Dakota Ness. Moderate conscious sedation time was 72 minutes. Patient was administered Versed. Oxygen saturation, hemodynamics and EKG were monitored closely. CLINICAL INFORMATION: Mrs. Oriana Gallo is a 64-year-old lady with a known history of type 2 diabetes, hypertension, hyperlipidemia and CAD. In 2014 she underwent stenting of mid LAD performed by Dr. Lida Ness. In July she presented with unstable angina and anemia with a hemoglobin of 8.7. Because of ongoing chest pain, I performed cardiac cath and noted that the LAD stent was patent. Distally beyond the stented segment there was a 50% lesion which was not intervened, but in the main circumflex as well as the first obtuse marginal had significant lesions and 2 stents were deployed. She did well but has not tolerated statins. She came back into the hospital with chest pain. Troponins were negative. Because of unstable angina and a known previous multivessel intervention, she was advised coronary angiography after due discussion regarding risks, benefits and options. PROCEDURE NOTE: Under local anesthesia and strict aseptic precautions, a 6-Panamanian introducer was placed in the right radial artery. Using a JL3.5 and a JR4 catheter, I performed coronary angiography, and the same right catheter was used to check LV pressure, but LV gram was not performed. I then went on to perform an FFR of the circumflex marginal and also PTCA and stenting of LAD. Following this, the sheath was taken out and TR band applied as per protocol and saturation in the fingers of the right hand was 94%. The patient tolerated procedure well. CARDIAC CATHETERIZATION FINDINGS: The left ventricular end-diastolic pressure was about 8 mmHg without any gradient across the aortic valve. CORONARY ANGIOGRAPHY FINDINGS: RIGHT CORONARY ARTERY: Large dominant vessel. No significant disease. Distally bifurcates into PDA and PLV, both of which supply a sizable amount of myocardium. Dominant, disease-free RCA. LEFT MAIN CORONARY ARTERY: Short patent vessel, bifurcates into LAD and circumflex. No significant disease. LEFT ANTERIOR DESCENDING CORONARY ARTERY: Good-caliber vessel extends along the anterior wall, gives off septal and diagonal branches. In the mid portion there is a stent that is widely patent. Beyond that at the junction of the middle and distal one third, there is an eccentric 80% heavily calcified lesion which represents progression of disease. This lesion is located at a bend at a very acute angle and appears to be quite significant. There is a fair amount of myocardium being supplied by this vessel beyond the stenosis. The LAD curves over and supplies the inferolateral portion of the left ventricle as well. LEFT POSTERIOR CIRCUMFLEX CORONARY ARTERY: Technically nondominant vessel gives off a tortuous obtuse marginal that was stented. Within the stented segment is about a 40% lesion, and the main circumflex in the AV groove is widely patent. This was also stented before in July 2019. IMPRESSION: This patient has an 80% to 85% mid/distal LAD disease representing progression of disease. She has a right-dominant system. Circumflex that was stented in the main circumflex is patent, but the obtuse marginal has about a 40% to 45% narrowing within the stent. This is not significant but moderate. RCA is free of significant disease. Filling pressures are normal. There is no gradient across the aortic valve. RECOMMENDATIONS: I recommended FFR of the circumflex and intervention of the LAD and proceeded to perform this in the same setting. INTERVENTION PROCEDURE DETAILS: I used a JL3.5 Telma type guide catheter. A Verrata wire was used to cross the lesion in the circumflex marginal. IFR and FFR were obtained as per protocol. IFR was 0.94. FFR was 0.90 with adenosine infusion. This was negative. Results were discussed with the patient. I then took the wire out and patient was administered Angiomax bolus and infusion as per protocol. I used a run-through wire and crossed the lesion with some difficulty in the distal LAD because of tortuosity and calcification. I then pre- dilated the lesion with a 2.5 caliber 12 mm NC Trek balloon. I then stented with a 2.5 caliber 12 mm Xience stent with excellent angiographic result. The patient had chest pain and ST elevation in leads V3 to V6. Excellent angiographic result without complication was achieved. The sheath was then taken out and TR band applied as per protocol and she was sent to the room in stable condition. The patient received Angiomax bolus and infusion as per protocol and she was already on aspirin and Plavix. Additional 225 mg of Plavix was given. The results were discussed with the patient in detail. FFR an IFR information was shared with the patient. No intervention for circumflex was necessary, and the distal LAD which represents progression of disease was addressed with a drug-eluting stent with excellent angiographic result. I expect that she will be discharged tomorrow if she remains stable. MMMICHAELL / HILLN: [id number] /
--- NOTE | 2020-03-25 19:49 | US ---
EXAMINATION TYPE: US extremity nonvasc mass LT DATE OF EXAM: 03/25/2020 COMPARISON: US Left Lower Extremity Venous Doppler CLINICAL HISTORY: swelling behind L knee . Swelling behind left knee x 13 days. No hx of DVT. Scanned left posterior knee and left medial knee area of swelling. No abnormalities seen at this time by ultrasound. IMPRESSION: There is no evidence of a popliteal cyst. No solid or cystic mass identified. No evidenc e of deep vein thrombosis in the popliteal vein.
[2020-03-25 20:23] LABS: Glucose,Whole Blood 181 mg/dL (75-99)
[2020-03-26 06:32] LABS: Glucose,Whole Blood 193 mg/dL (75-99)
[2020-03-26] MEDS: INSULIN ASPART (NovoLOG) 100 UNIT/ML VIAL SQ SCH ×2 (06:34→12:18)
[2020-03-26] MEDS: PANTOPRAZOLE 40 MG TABLET PO SCH (06:34)
[2020-03-26 07:09] LABS: Basophils % (A) 1 %; Eosinophils # (A) 0.1 k/uL (0-0.7); Eosinophils % (A) 3 %; HCT 40.6 % (34.0-46.0); HGB 14.3 gm/dL (11.4-16.0); Lymphocytes # (A) 0.7 k/uL (1.0-4.8); Lymphocytes % (A) 23 %; MCHC 35.3 g/dL (31.0-37.0); MCV 93.6 fL (80.0-100.0); Mean Platelet Volume 7.3; Monocytes # (A) 0.2 k/uL (0-1.0); Monocytes % (A) 8 %; Neutrophils # (A) 1.9 k/uL (1.3-7.7); Neutrophils % (A) 64 %; Platelet Count 164 k/uL (150-450); RBC 4.34 m/uL (3.80-5.40); RDW 13.2 % (11.5-15.5)
[2020-03-26 07:26] LABS: African American GFR (CKD) >90 (>60 ml/min/1.73 sqM); Anion Gap 10 mmol/L; Blood Urea Nitrogen 11 mg/dL (7-17); Calcium 9.1 mg/dL (8.4-10.2); Carbon Dioxide 19 mmol/L (22-30); Chloride 107 mmol/L (98-107); Glucose 185 mg/dL (74-99); Non-African American GFR(CKD) >90 (>60 ml/min/1.73 sqM); Sodium 136 mmol/L (137-145)
[2020-03-26 07:28] LABS: Potassium 4.7 mmol/L (3.5-5.1)
[2020-03-26 09:04] VITALS: RESP 18
[2020-03-26] MEDS: CLOPIDOGREL 75 MG TAB PO SCH (09:04)
[2020-03-26] MEDS: ASPIRIN 81 MG PO SCH (09:04)
[2020-03-26] MEDS: ATORVASTATIN 40 MG TAB PO SCH ×2 (09:04→09:05)
[2020-03-26] MEDS: amLODIPine 5 MG TAB PO SCH (09:04)
[2020-03-26] MEDS: HYDROCHLOROTHIAZIDE 25 MG TAB PO SCH (09:04)
[2020-03-26] MEDS: VORTIOXETINE HYDROBROMIDE 10 MG TABLET PO SCH (09:04)
[2020-03-26] MEDS: ATENOLOL 50 MG TAB PO SCH (09:04)
[2020-03-26] MEDS: LOSARTAN 50 MG TAB PO SCH (09:06)
--- NOTE | 2020-03-26 10:45 | P.PN ---
Subjective Progress Note Date: 03/26/20 This is a pleasant 64-year-old female with history of diabetes, hyperlipidemia, hypertension, who presented to the hospital with symptoms of chest discomfort. Patient underwent a cardiac catheterization in July 2019, at that time it revealed a 40% lesion in the mid PDA, patent stent in the LAD with mild to moderate disease in the circumflex. She underwent stenting of the circumflex with his eye and stent at that time. Patient was taken to the cardiac catheterization lab yesterday where she underwent and FFR of the circumflex with subsequent angioplasty and stenting of the LAD. Patient was seen and examined this morning, denied any chest pain or difficulty in breathing. Hemodynamically stable. EKG showed a normal sinus rhythm with no changes from post-PCI. Blood pressure 160/80 with a heart rate in the 70s, 90% on room air. White blood cell count 3.0, hemoglobin 14.3, platelet count 164. Sodium 136, potassium 4.7, BUN 11, creatinine 0.6. Objective - Vital Signs Vital signs: Vital Signs Temp 97.6 F 03/26/20 09:01 Pulse 73 03/26/20 09:01 Resp 18 03/26/20 09:01 BP 162/87 03/26/20 09:01 Pulse Ox 98 03/26/20 09:01 Intake & Output 03/25/20 03/26/20 03/26/20 18:59 06:59 18:59 Intake Total 752.58 240 Balance 752.58 240 Weight 94.6 kg Intake: IV 752.58 Oral 240 Other: Voiding Method Toilet Toilet Toilet # Voids 1 - Exam PHYSICAL EXAMINATION: GENERAL: 64-year-old female in no acute distress at the time of my examination HEENT: Head is atraumatic, normocephalic. Pupils equal, round. Sclera anicteric. Conjunctiva are clear. Mucous membranes of the mouth are moist. Neck is supple. There is no elevated jugular venous pressure. No carotid bruit is heard. HEART EXAMINATION: Heart S1, S2 normal. No murmur or gallop heard. CHEST EXAMINATION: Lungs are clear to auscultation and precussion. No chest wall tenderness is noted on palpation or with deep breathing. ABDOMEN: Soft, nontender. Bowel sounds are heard. No organomegaly noted. EXTREMITIES: 2+ peripheral pulses with no evidence of peripheral edema and no calf tenderness noted. Right radial site clean and dry, good distal pulse. NEUROLOGIC patient is awake, alert and oriented 3 . . - Labs CBC & Chem 7: 03/26/20 06:47 03/26/20 06:47 Labs: Abnormal Lab Results - Last 24 Hours (Table) 03/25/20 03/25/20 03/26/20 Range/Units 16:57 20:21 06:31 WBC (3.8-10.6) k/uL Lymphocytes # (1.0-4.8) k/uL Sodium (137-145) mmol/L Carbon Dioxide (22-30) mmol/L Glucose (74-99) mg/dL POC Glucose (mg/dL) 305 H 181 H 193 H (75-99) mg/dL 03/26/20 03/26/20 Range/Units 06:47 06:47 WBC 3.0 L (3.8-10.6) k/uL Lymphocytes # 0.7 L (1.0-4.8) k/uL Sodium 136 L (137-145) mmol/L Carbon Dioxide 19 L (22-30) mmol/L Glucose 185 H (74-99) mg/dL POC Glucose (mg/dL) (75-99) mg/dL Microbiology - Last 24 Hours (Table) 03/22/20 15:10 Blood Culture - Preliminary Blood No Growth after 72 hours Assessment and Plan Plan: Assessment and plan #1 unstable angina, status post angioplasty and stenting of the LAD #2 history of coronary artery disease with prior PCI #3 hypertension #4 diabetes #5 hyperlipidemia Plan Pataient may be discharged home today from cardiology's perspective, we'll make her a follow-up appointment in the office with Dr. LY Ness post discharge. DNP note has been reviewed, I agree with a documented findings and plan of care. Patient was seen and examined.
[2020-03-26 11:02] VITALS: BMI 29.9
[2020-03-26 11:53] VITALS: BP 130/77; PULSE 62; TEMP 97.9
[2020-03-26 12:04] LABS: Glucose,Whole Blood 217 mg/dL (75-99)
--- NOTE | 2020-03-26 12:05 | P.DS ---
Providers Date of admission: 03/23/20 14:22 Expected date of discharge: 03/26/20 Attending physician: Alexandra Painter DO Consults: 03/22/20 17:12 Consult Physician Routine Consulting Provider: Jhony Louis Consult Reason/Comments: exertional dyspnea, Hx of CAD Do you want consulting provider notified?: Yes 03/24/20 13:59 Consult Physician Routine Consulting Provider: Geoffrey Bauer Consult Reason/Comments: back injury with pain in limb Do you want consulting provider notified?: Yes 03/25/20 11:14 Consult Physician Routine Consulting Provider: [facility] Consult Reason/Comments: Post Interventional patient Do you want consulting provider notified?: Already Contacted Primary care physician: Stated None Hospital Course: Patient is a 64-year-old female with coronary artery disease history of 3 stents, diabetes mellitus, hypertension, dyslipidemia, and arthritis who presented to the emergency department with complaints of shortness of breath and fevers. On arrival to the ER she underwent an extensive evaluation. Her initial vital signs showed a pulse of 118 and blood pressure of 159/94 but were otherwise normal. Initial laboratory analysis demonstrates low lymphocyte count 0.6, d-dimer normal, troponin normal 2, magnesium 1.5, bilirubin 2, AST 6, sodium 136. The remainder of her labs were normal. CTA had sub optimal contra st bolus but did not show any large primary embolism. X-ray of the knee showed no acute osseous lesion but moderate osteoarthritis. Chest x-ray showed evidence of COPD and borderline cardiomegaly. Left lower extremity venous Doppler was negative for DVT. EKG demonstrated sinus tachycardia at rate of 109, normal access, normal intervals, no significant ST-T wave changes. She was admitted for exertional dyspnea. Her troponin remained negative. She was seen by cardio and plan is for cath 03/24. Patient underwent cardiac cath and received stent placement of a complex calcified mid to distal large caliber left anterior descending coronary artery. Patient reported no complaints of chest pain, shortness of breath or palpitations after cardiac cath. Orthopedic surgery was consulted for chronic lower back pain. Orthopedic surgery recommended repeat MRI lumbar spine in the outpatient setting with follow-up orthopedic surgery Dr. Bauer as needed. Ultrasound of the posterior left knee showed no abnormalities. Otherwise, her home medication was resumed. Patient was seen and examined. No acute events overnight. Patient reports spastic pain in her left calf. She denies any chest pain, shortness of breath or palpitations. No nausea or vomiting. No fever or chills. General: [non toxic], [no distress], [appears at stated age] Derm: [warm], [dry] Head: [atraumatic], [normocephalic], [symmetric] Eyes: [EOMI], [no lid lag], [anicteric sclera] Mouth: [no lip lesion], [mucus membranes moist] Cardiovascular: [S1S2 reg], [no murmur], [positive DP pulse bilateral], Lungs: [CTA bilateral], [no rhonchi, no rales] , [no accessory muscle use] Abdominal: [soft], [ nontender to palpation], [no guarding], [no appreciable organomegaly] Ext: [no gross muscle atrophy], [no edema], [no contractures], [swelling behind the left knee], [vertebrae nontender to palpation] Neuro: [no focal neuro deficits] Psych: [Alert], [oriented], [appropriate affect] Exertional Dyspnea with concern for unstable angina with hx of CAD - CTA negative - CXR negative - echo shows EF 55-60% with mild concentric LVH - Cardio recs appreciated: Cardiac cath performed with stent placement to the LAD - ASA, lipitor, plavix, BB -Resume imdur - last cath 08/14 with placement of sent X2 in the RCA Chronic back pain with radiculopathy, history of spinal canal stenosis -Orthopedic surgery recommends repeat MRI lumbar spine likely will need to be done in the outpatient setting -Follow-up with Dr. Bauer in the outpatient setting. HTN - controlled - home norvasc, cozaar, imdur, atenolol HLD - lipitor DM 2 - hold metformin - SSI Seasonal allergies - claritin - flonase Peptic ulcer disease - Protonix [Patient admitted for exertional dyspnea. Cardiac cath performed yesterday with stent placement. Lower back Pain greatly improved with 1 dose of Valium. Advised as needed use for spastic pain only. Cleared from cardiology perspective, discussed with [employer] Lidia. Plans for discharge home today with outpatient orthopedic follow-up. This complex discharge took about 35 minutes to complete.] Pertinent Studies: Knee x-ray, chest x-ray, chest CTA, venous Doppler, echocardiogram Procedures: Cardiac cath Patient Condition at Discharge: Stable Plan - Discharge Summary New Discharge Prescriptions: New Hydrochlorothiazide [Hydrodiuril] 25 mg PO DAILY #3 tab amLODIPine [Norvasc] 5 mg PO DAILY #30 tab traMADol HCl [Ultram] 50 mg PO Q6H PRN #12 tab PRN Reason: Moderate Pain Diazepam [Valium] 5 mg PO Q8HR PRN 3 Days #9 tab PRN Reason: Spasms Continue Vortioxetine Hydrobromide [Trintellix] 10 mg PO DAILY Atenolol [Tenormin] 100 mg PO BID tab Diclofenac Sodium [Voltaren Gel] 1 applic TOPICAL DAILY PRN PRN Reason: KNEE PAIN Insulin Regular [humuLIN R] See Protocol SQ ACHS Aspirin 81 mg PO DAILY chew Losartan [Cozaar] 100 mg PO DAILY #30 tab Clopidogrel [Plavix] 75 mg PO DAILY #30 tab Pantoprazole [Protonix] 40 mg PO AC-BID #60 tablet.dr Acetaminophen Tab [Tylenol] 650 mg PO Q6HR PRN tab PRN Reason: Mild Pain Or Fever > 100.5 Simethicone [Gas-X] 125 mg PO QID PRN PRN Reason: GAS Albuterol Sulfate [Ventolin HFA] 1 - 2 puff INHALATION Q6H PRN PRN Reason: Shortness Of Breath Insulin Lispro Protamin/Lispro [humaLOG Mix 50-50 Kwikpen] 20 units SQ DAILY Dicyclomine HCl 20 mg PO QID PRN PRN Reason: IBS Atorvastatin Calcium [Lipitor] 40 mg PO DAILY metFORMIN HCL [Glucophage] 500 mg PO BID #0 Nitroglycerin Sl Tabs [Nitrostat] 0.4 mg SUBLINGUAL Q5M PRN #25 tab PRN Reason: Chest Pain Discharge Medication List Vortioxetine Hydrobromide [Trintellix] 10 mg PO DAILY 01/03/15 [History] Atenolol [Tenormin] 100 mg PO BID tab 06/12/15 [Rx] Diclofenac Sodium [Voltaren Gel] 1 applic TOPICAL DAILY PRN 08/02/19 [History] Insulin Regular [humuLIN R] See Protocol SQ ACHS 08/02/19 [History] Acetaminophen Tab [Tylenol] 650 mg PO Q6HR PRN tab 08/06/19 [Rx] Aspirin 81 mg PO DAILY chew 08/06/19 [Rx] Clopidogrel [Plavix] 75 mg PO DAILY #30 tab 08/06/19 [Rx] Losartan [Cozaar] 100 mg PO DAILY #30 tab 08/06/19 [Rx] Pantoprazole [Protonix] 40 mg PO AC-BID #60 tablet. 08/06/19 [Rx] Albuterol Sulfate [Ventolin HFA] 1 - 2 puff INHALATION Q6H PRN 03/22/20 [History] Atorvastatin Calcium [Lipitor] 40 mg PO DAILY 03/22/20 [History] Dicyclomine HCl 20 mg PO QID PRN 03/22/20 [History] Insulin Lispro Protamin/Lispro [humaLOG Mix 50-50 Kwikpen] 20 units SQ DAILY 03/22/20 [History] Simethicone [Gas-X] 125 mg PO QID PRN 03/22/20 [History] Diazepam [Valium] 5 mg PO Q8HR PRN 3 Days #9 tab 03/26/20 [Rx] Hydrochlorothiazide [Hydrodiuril] 25 mg PO DAILY #3 tab 03/26/20 [Rx] Nitroglycerin Sl Tabs [Nitrostat] 0.4 mg SUBLINGUAL Q5M PRN #25 tab 03/26/20 [Rx] amLODIPine [Norvasc] 5 mg PO DAILY #30 tab 03/26/20 [Rx] metFORMIN HCL [Glucophage] 500 mg PO BID #0 03/26/20 [Rx] traMADol HCl [Ultram] 50 mg PO Q6H PRN #12 tab 03/26/20 [Rx] Follow up Appointment(s)/Referral(s): Susana Ness MD [STAFF PHYSICIAN] - 1 Week Geoffrey Bauer DO [Doctor of Osteopathic Medicine] - As Needed (Plan follow up in May (for knee).) None,Stated [Primary Care Provider] - 1-2 days Dylan Hobson [STAFF PHYSICIAN] - 1-2 Days (This with be a new patient appointment also. ) Activity/Diet/Wound Care/Special Instructions: Diet: Cardiac FU PCP within 3 days FU Cardiology within 1 week Take all medications as advised. Please make appointment with Dr. Bauer for patient prior to DC. Come back to ED or call 911 for worsening chest pain, SOB, palpitations, dizzi ness. Discharge Disposition: HOME SELF-CARE
--- NOTE | 2020-03-26 16:01 | P.CNOR ---
History of Present Illness - [facility] Consult date: 03/26/20 Requesting physician: Yara Villanueva Consult reason: low back pain (Worsening low back pain and left lower extremity radiculopathy) History of present illness: Patient is a very pleasant 64-year-old female who is seen and examined at the bedside after consultation was placed for further evaluation in regards to her low back pain and lower extremity radiculopathy. Patient was attempted to be seen and examined yesterday but was having a procedure performed in the [facility] . She had a stent placed in her LAD artery. Patient states this is her fourth heart stent. Patient admits to chronic low back pain that has continued to worsen overtime. She states she has pain that radiates over her left lower ribs, down her abdomen, towards her genitalia, into the left buttock, down the left posterior lateral leg, and over the anterior lower extremity to the top of the foot. She denies specific weakness in left lower extremity but states it does feel like it will give out on her. She denies any right lower extremity weakness or radiculopathy. She does state she has some known neuropathy in bilateral feet. She states she is able to ambulate and get around. She prev iously had an MRI performed in 2018 which it show evidence of significant stenosis at L4-5 at that time. We did discuss that given her recent cardiac stent placement, we may be limited in our options for treatment in regards to her lumbar spine. She is currently taking Plavix 75 mg daily. We discussed that she'll most likely be unable to have an MRI of the lumbar spine for at least 6 weeks following stent placement. She would need to be cleared from cardiology in order to obtain an MRI lumbar spine. Patient is being discharged today with prescriptions for Ultram and Valium along with Norvasc and hydrochlorothiazide. Patient's past medical history includes coronary artery disease, hypertension, diabetes, hyperlipidemia. Patient states she did sustain a fall on 03/09/2020 resulting in a large bruise and swelling over her left lower extremity. This has continued to improve over the past 2 weeks without difficulty.. Past Medical History Past Medical History: Coronary Artery Disease (CAD), Chest Pain / Angina, Diabetes Mellitus, Hyperlipidemia, Hypertension, Osteoarthritis (OA) Additional Past Medical History / Comment(s): SEASONAL ALLERGIES, STATES SHE WAS TOLD START OF CIRRHOSIS, PANCREATITIS History of Any Multi-Drug Resistant Organisms: None Reported Past Surgical History: Appendectomy, Heart Catheterization With Stent, Hysterectomy, Tonsillectomy Additional Past Surgical History / Comment(s): 01/08/15 x 1 and 08/05/19 x2 PTCA with stent placement (total of 3 stents) Past Anesthesia/Blood Transfusion Reactions: No Reported Reaction Additional Past Anesthesia/Blood Transfusion Reaction / Comm: Pt has never recieved blood. Date of Last Stent Placement:: 08/05/19 Past Psychological History: Anxiety, Depression Additional Psychological History / Comment(s): Pt lives with her significant oth er. She is independent. She drives a car. Smoking Status: Never smoker Past Alcohol Use History: Rare Additional Past Alcohol Use History / Comment(s): . Past Drug Use History: None Reported Additional Drug Use History / Comment(s): DENIES CURRENT MARIJUANA USE. - Past Family History Father Additional Family Medical History / Comment(s): HEART DISEASE Mother Family Medical History: Cancer Additional Family Medical History / Comment(s): UTERINE Brother(s) Family Medical History: Cancer Additional Family Medical History / Comment(s): BLADDER Medications and Allergies Home Medications Medication Instructions Recorded Confirmed Type Vortioxetine Hydrobromide 10 mg PO DAILY 01/03/15 03/22/20 History [Trintellix] Atenolol [Tenormin] 100 mg PO BID tab 06/12/15 03/22/20 Rx Diclofenac Sodium [Voltaren Gel] 1 applic TOPICAL DAILY PRN 08/02/19 03/22/20 History Insulin Regular [humuLIN R] See Protocol SQ ACHS 08/02/19 03/22/20 History Acetaminophen Tab [Tylenol] 650 mg PO Q6HR PRN tab 08/06/19 03/22/20 Rx Aspirin 81 mg PO DAILY chew 08/06/19 03/22/20 Rx Clopidogrel [Plavix] 75 mg PO DAILY #30 tab 08/06/19 03/22/20 Rx Losartan [Cozaar] 100 mg PO DAILY #30 tab 08/06/19 03/22/20 Rx Pantoprazole [Protonix] 40 mg PO AC-BID #60 tablet. 08/06/19 03/22/20 Rx Albuterol Sulfate [Ventolin HFA] 1 - 2 puff INHALATION Q6H PRN 03/22/20 03/22/20 History Atorvastatin Calcium [Lipitor] 40 mg PO DAILY 03/22/20 03/22/20 History Dicyclomine HCl 20 mg PO QID PRN 03/22/20 03/22/20 History Insulin Lispro Protamin/Lispro 20 units SQ DAILY 03/22/20 03/22/20 History [humaLOG Mix 50-50 Kwikpen] Simethicone [Gas-X] 125 mg PO QID PRN 03/22/20 03/22/20 History Diazepam [Valium] 5 mg PO Q8HR PRN 3 Days #9 tab 03/26/20 Rx Hydrochlorothiazide [Hydrodiuril] 25 mg PO DAILY #3 tab 03/26/20 Rx Nitroglycerin Sl Tabs [Nitrostat] 0.4 mg SUBLINGUAL Q5M PRN #25 tab 03/26/20 Rx amLODIPine [Norvasc] 5 mg PO DAILY #30 tab 03/26/20 Rx metFORMIN HCL [Glucophage] 500 mg PO BID #0 03/26/20 03/22/20 Rx traMADol HCl [Ultram] 50 mg PO Q6H PRN #12 tab 03/26/20 Rx Allergies Allergy/AdvReac Type Severity Reaction Status Date / Time venom-honey bee Allergy Unknown Rash/Hives Verified 03/22/20 17:20 [bee venom (honey bee)] Jnthglo-Mho-Wez Reductase AdvReac MUSCLE Verified 03/22/20 17:20 Inhibitor PAIN/JOINT PAIN Physical Examination Physical exam: Patient is awake, alert, and oriented 3 Vital signs stable Good chest excursion with deep inspiration and expiration Examination of lumbar spine reveals skin is intact with no abrasions, lacerations, or bruises; no erythema, purulence or signs of infection Dorsiflexion, plantarflexion, and extensor hallucis longus positive sustained bilaterally Lower extremity strength 5/5 bilaterally Patient is able to walk on toes bilaterally without difficulty Patient has some difficulty ambulating on heels on the left Patient is able to stand on heels bilaterally No lower extremity hyperreflexia bilaterally Straight leg test negative bilateral lower extremities Negative Lasegue's test bilaterally No signs or symptoms of DVT; no calf pain No pain with internal and external rotation of the hips bilaterally Ketty intact bilateral lower extremities Evidence of a large healing bruise over the anterior lateral left lower extremity Results MRI of the lumbar spine taken on 04/27/2018: L1-2 broad-based right paracentral and lateral disc bulging with mild right neural foraminal encroachment; L2-3 disc desiccation and facet arthropathy; L3-4 disc desiccation and disc bulging with facet arthropathy and ligamentum flavum hypertrophy resulting in mild left neural foraminal encroachment; L4-5 spondylolisthesis, severe facet arthropathy, ligamentum flavum hypertrophy, and circumferential disc bulge resulting in s evere spinal canal stenosis and moderate neural foraminal encroachment greater on the right than the left; L5-S1 severe facet arthropathy; vertebral body hemangioma of L2 and L3; large hemangioma of the S1 segment - Labs Labs: Abnormal Lab Results - Last 24 Hours (Table) 03/25/20 03/25/20 03/26/20 Range/Units 16:57 20:21 06:31 WBC (3.8-10.6) k/uL Lymphocytes # (1.0-4.8) k/uL Sodium (137-145) mmol/L Carbon Dioxide (22-30) mmol/L Glucose (74-99) mg/dL POC Glucose (mg/dL) 305 H 181 H 193 H (75-99) mg/dL 03/26/20 03/26/20 03/26/20 Range/Units 06:47 06:47 11:58 WBC 3.0 L (3.8-10.6) k/uL Lymphocytes # 0.7 L (1.0-4.8) k/uL Sodium 136 L (137-145) mmol/L Carbon Dioxide 19 L (22-30) mmol/L Glucose 185 H (74-99) mg/dL POC Glucose (mg/dL) 217 H (75-99) mg/dL Microbiology - Last 24 Hours (Table) 03/22/20 15:10 Blood Culture - Preliminary Blood No Growth after 72 hours H & H 03/22/20 03/26/20 Range/Units 12:20 06:47 Hgb 14.2 14.3 (11.4-16.0) gm/dL Hct 41.8 40.6 (34.0-46.0) % Coagulation 03/22/20 Range/Units 12:20 INR 0.9 (<1.2) Result Diagrams: 03/26/20 06:47 03/26/20 06:47 Assessment and Plan Assessment: Assessment: Worsening chronic low back pain Left lower extremity radiculopathy L4-5 severe spinal canal stenosis L4-5 spondylolisthesis Lumbar facet arthropathy Neuropathy bilateral feet Status post cardiac stent placement at the LAD History of previous cardiac stent placement Coronary artery disease Hypertension Diabetes Hyperlipidemia (1) Chronic low back pain Status: Acute Code(s): M54.5 - LOW BACK PAIN; G89.29 - OTHER CHRONIC PAIN SNOMED Code(s): 867593673 (2) Lumbar back pain with radiculopathy affecting left lower extremity Status: Acute Code(s): M54.16 - RADICULOPATHY, LUMBAR REGION SNOMED Code(s): 655900272 (3) Spinal stenosis at L4-L5 level Status: Acute Code(s): M48.061 - SPINAL STENOSIS, LUMBAR REGION WITHOUT NEUROGENIC DANYELLE SNOMED Code(s): 45557567 (4) Spondylolisthesis at L4-L5 level Status: Acute Code(s): M43.16 - SPONDYLOLISTHESIS, LUMBAR REGION SNOMED Code(s): 437497813 (5) Lumbar facet arthropathy Status: Acute Code(s): M47.816 - SPONDYLOSIS W/O MYELOPATHY OR RADICULOPATHY, LUMBAR REGION SNOMED Code(s): 490760591 (6) Neuropathy Status: Acute Code(s): G62.9 - POLYNEUROPATHY, UNSPECIFIED SNOMED Code(s): 339860194 (7) S/P coronary artery stent placement Status: Acute Code(s): Z95.5 - PRESENCE OF CORONARY ANGIOPLASTY IMPLANT AND G RAFT SNOMED Code(s): 547910096 (8) History of coronary artery stent placement Status: Acute Code(s): Z95.5 - PRESENCE OF CORONARY ANGIOPLASTY IMPLANT AND GRAFT SNOMED Code(s): 717744734 (9) Coronary artery disease Status: Acute Code(s): I25.10 - ATHSCL HEART DISEASE OF [place] CORONARY ARTERY W/O ANG PCTRS SNOMED Code(s): 17372554 (10) Diabetes Status: Acute Code(s): E11.9 - TYPE 2 DIABETES MELLITUS WITHOUT COMPLICATIONS SNOMED Code(s): 17412269 (11) HTN (hypertension) Status: Acute Code(s): I10 - ESSENTIAL (PRIMARY) HYPERTENSION SNOMED Code(s): 01802762 (12) Hyperlipemia Status: Acute Code(s): E78.5 - HYPERLIPIDEMIA, UNSPECIFIED SNOMED Code(s): 34105545 Plan: Plan: 1. After physical examination the patient, further discussion with the patient, and further discussion with Dr. Brian Bauer, we will plan to continue conservative treatment at this time. She is status post cardiac stent placement at the LAD. She is on Plavix 75 mg daily. She will be required to continue with Plavix per recommendations by cardiology. Patient does continue to experience worsening low back pain and left lower extremity radiculopathy. Previous lumbar MRI imaging performed in 2018 shows evidence of L4-5 significant stenosis and spondylolisthesis. Given her significant symptoms and very significant changes on lumbar MRI imaging, we would plan to obtain a new MRI of the lumbar spine for further evaluation. We did discuss she would be a candidate for surgical intervention at her lumbar spine based on previous imaging and her symptoms. Given her recent cardiac stent placement, we will be unable to obtain a new lumbar MRI for at least 6 weeks postoperatively. We discussed she would need to be cleared from cardiology in order to obtain an MRI lumbar spine. At this time we'll plan to avoid obtaining further imaging or treatment during her recovery from cardiac stent placement. Patient feels this is a good plan of care and would like to continue conservative treatment over the next several months. We'll plan to have her follow up in May 2020 for further evaluation. Patient is clear for discharge from an orthopedic spine standpoint. Following discharge, patient may follow-up with Arturo Meza PA-C or Dr. Brian Bauer at [facility] in approximately 2 months for further evaluation. Patient feels this is a good plan of care. 2. Patient will continue to be seen and examined by medicine and cardiology for her other medical diagnoses. Time with Patient: Greater than 30 (Including obtaining history, physical examination, reviewing of imaging, and dictation.)
== END 2020-03-26 13:26 | disposition home or self-care (01) | DRG 247 ==
LOC: EC 11:13 → 1SOBS 15:57 → OBSVTOIN 03-23 14:22 → 3SCARD 03-25 12:06
PROVIDERS: ADMIT Internal Medicine; ATTEND Internal Medicine
PROC: 4A033BC Measurement of Arterial Pressure, Coronary, Percutaneous Approach (ICD-10-PCS; principal; 2020-03-25 09:00)
PROC: B2111ZZ Fluoroscopy of Multiple Coronary Arteries using Low Osmolar Contrast (ICD-10-PCS; principal; 2020-03-25 09:00)
PROC: 4A023N7 Measurement of Cardiac Sampling and Pressure, Left Heart, Percutaneous Approach (ICD-10-PCS; principal; 2020-03-25 09:00)
PROC: 027034Z Dilation of Coronary Artery, One Artery with Drug-eluting Intraluminal Device, Percutaneous Approach (ICD-10-PCS; principal; 2020-03-25 09:00)
DX: I25.110 Atherosclerotic heart disease of native coronary artery with unstable angina pectoris (principal); E83.42 Hypomagnesemia; E78.5 Hyperlipidemia, unspecified; E11.9 Type 2 diabetes mellitus without complications; M19.90 Unspecified osteoarthritis, unspecified site; F41.9 Anxiety disorder, unspecified; F32.9 Major depressive disorder, single episode, unspecified; G89.29 Other chronic pain; G62.9 Polyneuropathy, unspecified; I10 Essential (primary) hypertension; K27.9 Peptic ulcer, site unspecified, unspecified as acute or chronic, without hemorrhage or perforation; J30.2 Other seasonal allergic rhinitis; M48.061 Spinal stenosis, lumbar region without neurogenic claudication; M47.26 Other spondylosis with radiculopathy, lumbar region; M43.16 Spondylolisthesis, lumbar region; J44.9 Chronic obstructive pulmonary disease, unspecified; Z20.828 Contact with and (suspected) exposure to other viral communicable diseases; M51.16 Intervertebral disc disorders with radiculopathy, lumbar region; R29.6 Repeated falls; R00.0 Tachycardia, unspecified; Z79.899 Other long term (current) drug therapy; Z79.82 Long term (current) use of aspirin; Z79.4 Long term (current) use of insulin; Z79.02 Long term (current) use of antithrombotics/antiplatelets; Z88.8 Allergy status to other drugs, medicaments and biological substances; Z91.030 Bee allergy status; Z95.5 Presence of coronary angioplasty implant and graft; Z90.49 Acquired absence of other specified parts of digestive tract; Z90.710 Acquired absence of both cervix and uterus; Z98.890 Other specified postprocedural states; Z82.49 Family history of ischemic heart disease and other diseases of the circulatory system; Z80.59 Family history of malignant neoplasm of other urinary tract organ
CPT/HCPCS: 36415; 71045; 71046; 71275; 80048; 80053; 80061; 83605; 83735; 83880; 84484; 85025; 85379; 85610; 85730; 87040; 93005; 93306; 93458; 93571; 96360; 96361; 99285

== ENCOUNTER 2020-04-09 19:43 | Emergency (ER) | payer OTHER ==
[2020-04-09 19:49] VITALS: BP 168/88; PULSE 89; RESP 16; TEMP 98.8
[2020-04-09 20:13] LABS: Basophils % (A) 1 %; Eosinophils # (A) 0.1 k/uL (0-0.7); Eosinophils % (A) 2 %; HGB 13.1 gm/dL (11.4-16.0); Lymphocytes # (A) 0.8 k/uL (1.0-4.8); Lymphocytes % (A) 25 %; MCH 30.8 pg (25.0-35.0); MCHC 32.8 g/dL (31.0-37.0); MCV 93.8 fL (80.0-100.0); Mean Platelet Volume 8.3; Monocytes # (A) 0.3 k/uL (0-1.0); Monocytes % (A) 9 %; Neutrophils % (A) 61 %; Platelet Count 196 k/uL (150-450); RBC 4.27 m/uL (3.80-5.40); RDW 12.9 % (11.5-15.5); WBC 3.3 k/uL (3.8-10.6)
[2020-04-09 20:22] LABS: Albumin 4.1 g/dL (3.5-5.0); Calcium 8.8 mg/dL (8.4-10.2); Potassium 3.7 mmol/L (3.5-5.1); Total Bilirubin 0.5 mg/dL (0.2-1.3); Total Protein 6.5 g/dL (6.3-8.2)
--- NOTE | 2020-04-09 20:45 | ED ---
Recheck HPI - General Chief Complaint: Recheck/Abnormal Lab/Rx Stated Complaint: Sent by pcp Time Seen by Provider: 04/09/20 19:49 Source: patient Mode of arrival: ambulatory Limitations: no limitations - History of Present Illness Initial Comments: 64-year-old female who had routine outpatient labs who was told she had a acute kidney injury present to the ER for recheck evaluation. Patient denies any symptoms. Patient states she was told by PCP it could just be dehydration. No known history of kidney disease. - Related Data Home Medications Medication Instructions Recorded Confirmed Vortioxetine Hydrobromide 10 mg PO DAILY 01/03/15 03/22/20 [Trintellix] Diclofenac Sodium [Voltaren Gel] 1 applic TOPICAL DAILY PRN 08/02/19 03/22/20 Insulin Regular [humuLIN R] See Protocol SQ ACHS 08/02/19 03/22/20 Albuterol Sulfate [Ventolin HFA] 1 - 2 puff INHALATION Q6H PRN 03/22/20 03/22/20 Atorvastatin Calcium [Lipitor] 40 mg PO DAILY 03/22/20 03/22/20 Dicyclomine HCl 20 mg PO QID PRN 03/22/20 03/22/20 Insulin Lispro Protamin/Lispro 20 units SQ DAILY 03/22/20 03/22/20 [humaLOG Mix 50-50 Kwikpen] Simethicone [Gas-X] 125 mg PO QID PRN 03/22/20 03/22/20 Previous Rx's Medication Instructions Recorded Atenolol [Tenormin] 100 mg PO BID tab 06/12/15 Acetaminophen Tab [Tylenol] 650 mg PO Q6HR PRN tab 08/06/19 Aspirin 81 mg PO DAILY chew 08/06/19 Clopidogrel [Plavix] 75 mg PO DAILY #30 tab 08/06/19 Losartan [Cozaar] 100 mg PO DAILY #30 tab 08/06/19 Pantoprazole [Protonix] 40 mg PO AC-BID #60 tablet. 08/06/19 Diazepam [Valium] 5 mg PO Q8HR PRN 3 Days #9 tab 03/26/20 Hydrochlorothiazide [Hydrodiuril] 25 mg PO DAILY #3 tab 03/26/20 Nitroglycerin Sl Tabs [Nitrostat] 0.4 mg SUBLINGUAL Q5M PRN #25 tab 03/26/20 amLODIPine [Norvasc] 5 mg PO DAILY #30 tab 03/26/20 metFORMIN HCL [Glucophage] 500 mg PO BID #0 03/26/20 traMADol HCl [Ultram] 50 mg PO Q6H PRN #12 tab 03/26/20 Allergies Allergy/AdvReac Type Severity Reaction Status Date / Time venom-honey bee Allergy Unknown Rash/Hives Verified 04/09/20 19:48 [bee venom (honey bee)] Iynpyiy-Ajw-Ovw Reductase AdvReac MUSCLE Verified 04/09/20 19:48 Inhibitor PAIN/JOINT PAIN Review of Systems ROS Statement: Those systems with pertinent positive or pertinent negative responses have been documented in the HPI. ROS Other: All systems not noted in ROS Statement are negative. Past Medical History Past Medical History: Coronary Artery Disease (CAD), Chest Pain / Angina, Diabetes Mellitus, Hyperlipidemia, Hypertension, Osteoarthritis (OA) Additional Past Medical History / Comment(s): SEASONAL ALLERGIES, STATES SHE WAS TOLD START OF CIRRHOSIS, PANCREATITIS History of Any Multi-Drug Resistant Organisms: None Reported Past Surgical History: Appendectomy, Heart Catheterization With Stent, Hysterectomy, Tonsillectomy Additional Past Surgical History / Comment(s): 01/08/15 x 1 and 08/05/19 x2 PTCA with stent placement (total of 3 stents) Past Anesthesia/Blood Transfusion Reactions: No Reported Reaction Additional Past Anesthesia/Blood Transfusion Reaction / Comment(s): Pt has never recieved blood. Date of Last Stent Placement:: 08/05/19 Past Psychological History: Anxiety, Depression Past Alcohol Use History: Rare Past Drug Use History: None Reported - Past Family History Father Additional Family Medical History / Comment(s): HEART DISEASE Mother Family Medical History: Cancer Additional Family Medical History / Comment(s): UTERINE Brother(s) Family Medical History: Cancer Additional Family Medical History / Comment(s): BLADDER General Exam - General Exam Comments Initial Comments: General: The patient is awake and alert, in no distress Eye: Pupils are equal, round and reactive to light, extra-ocular movements are intact. No nystagmus. There is normal conjunctiva bilaterally. No signs of i cterus. Cardiovascular: There is a regular rate and rhythm. No murmur, rub or gallop is appreciated. Respiratory: Lungs are clear to auscultation, respirations are non-labored, breath sounds are equal. No wheezes, stridor, rales, or rhonchi. Gastrointestinal: Soft, non-distended, non-tender abdomen without masses or o rganomegaly noted. There is no rebound or guarding present. Musculoskeletal: Normal ROM, no tenderness. Strength 5/5. Sensation intact. Pulses equal bilaterally 2+. Neurological: A&O x 3. CN II-XII intact grossly, There are no obvious motor or sensory deficits. Coordination appears grossly intact. Speech is normal. Skin: Skin is warm and dry and no rashes or lesions are noted. Psychiatric: Cooperative, appropriate mood & affect, normal judgment. Limitations: no limitations Course Vital Signs 04/09/20 19:45 Temperature 98.8 F Pulse Rate 89 Respiratory 16 Rate Blood Pressure 168/88 O2 Sat by Pulse 95 Oximetry Medical Decision Making - Medical Decision Making Recheck no ELVI. Bun and CR WNL. Patient appears well in no distress. No symptom s. Patient glucose elevated she is aware, has history of DM recently started on new medications. Patient discharged appearing well with PCP f/u instruction after discussing case with Dr. Neville. - Lab Data Result diagrams: 04/09/20 20:04 04/09/20 20:04 Lab Results 04/09/20 04/09/20 04/09/20 Range/Units 20:04 20:04 20:28 WBC 3.3 L (3.8-10.6) k/uL RBC 4.27 (3.80-5.40) m/uL Hgb 13.1 (11.4-16.0) gm/dL Hct 40.0 (34.0-46.0) % MCV 93.8 (80.0-100.0) fL MCH 30.8 (25.0-35.0) pg MCHC 32.8 (31.0-37.0) g/dL RDW 12.9 (11.5-15.5) % Plt Count 196 (150-450) k/uL Neutrophils % 61 % Lymphocytes % 25 % Monocytes % 9 % Eosinophils % 2 % Basophils % 1 % Neutrophils # 2.0 (1.3-7.7) k/uL Lymphocytes # 0.8 L (1.0-4.8) k/uL Monocytes # 0.3 (0-1.0) k/uL Eosinophils # 0.1 (0-0.7) k/uL Basophils # 0.0 (0-0.2) k/uL Sodium 136 L (137-145) mmol/L Potassium 3.7 (3.5-5.1) mmol/L Chloride 105 (98-107) mmol/L Carbon Dioxide 23 (22-30) mmol/L Anion Gap 8 mmol/L BUN 17 (7-17) mg/dL Creatinine 0.83 (0.52-1.04) mg/dL Est GFR (CKD-EPI)AfAm 87 (>60 ml/min/1.73 sqM) Est GFR (CKD-EPI)NonAf 75 (>60 ml/min/1.73 sqM) Glucose 261 H (74-99) mg/dL Calcium 8.8 (8.4-10.2) mg/dL Total Bilirubin 0.5 (0.2-1.3) mg/dL AST 39 H (14-36) U/L ALT 25 (4-34) U/L Alkaline Phosphatase 92 (38-126) U/L Total Protein 6.5 (6.3-8.2) g/dL Albumin 4.1 (3.5-5.0) g/dL Urine Color Yellow Urine Appearance Clear (Clear) Urine pH 6.5 (5.0-8.0) Ur Specific [place] 1.021 (1.001-1.035) Urine Protein Negative (Negative) Urine Glucose (UA) 3+ H (Negative) Urine Ketones Negative (Negative) Urine Blood Negative (Negative) Urine Nitrite Negative (Negative) Urine Bilirubin Negative (Negative) Urine Urobilinogen 4.0 (<2.0) mg/dL Ur Leukocyte Esterase Small H (Negative) Urine RBC 1 (0-5) /hpf Urine WBC 3 (0-5) /hpf Ur Squamous Epith Cells 2 (0-4) /hpf Amorphous Sediment Rare H (None) /hpf Urine Bacteria Rare H (None) /hpf Hyaline Casts 5 H (0-2) /lpf Urine Mucus Rare H (None) /hpf Urine Osmolality (50-1400) mosm/kg 07/15/20 Range/Units 20:28 WBC (3.8-10.6) k/uL RBC (3.80-5.40) m/uL Hgb (11.4-16.0) gm/dL Hct (34.0-46.0) % MCV (80.0-100.0) fL MCH (25.0-35.0) pg MCHC (31.0-37.0) g/dL RDW (11.5-15.5) % Plt Count (150-450) k/uL Neutrophils % % Lymphocytes % % Monocytes % % Eosinophils % % Basophils % % Neutrophils # (1.3-7.7) k/uL Lymphocytes # (1.0-4.8) k/uL Monocytes # (0-1.0) k/uL Eosinophils # (0-0.7) k/uL Basophils # (0-0.2) k/uL Sodium (137-145) mmol/L Potassium (3.5-5.1) mmol/L Chloride (98-107) mmol/L Carbon Dioxide (22-30) mmol/L Anion Gap mmol/L BUN (7-17) mg/dL Creatinine (0.52-1.04) mg/dL Est GFR (CKD-EPI)AfAm (>60 ml/min/1.73 sqM) Est GFR (CKD-EPI)NonAf (>60 ml/min/1.73 sqM) Glucose (74-99) mg/dL Calcium (8.4-10.2) mg/dL Total Bilirubin (0.2-1.3) mg/dL AST (14-36) U/L ALT (4-34) U/L Alkaline Phosphatase (38-126) U/L Total Protein (6.3-8.2) g/dL Albumin (3.5-5.0) g/dL Urine Color Urine Appearance (Clear) Urine pH (5.0-8.0) Ur Specific [place] (1.001-1.035) Urine Protein (Negative) Urine Glucose (UA) (Negative) Urine Ketones (Negative) Urine Blood (Negative) Urine Nitrite (Negative) Urine Bilirubin (Negative) Urine Urobilinogen (<2.0) mg/dL Ur Leukocyte Esterase (Negative) Urine RBC (0-5) /hpf Urine WBC (0-5) /hpf Ur Squamous Epith Cells (0-4) /hpf Amorphous Sediment (None) /hpf Urine Bacteria (None) /hpf Hyaline Casts (0-2) /lpf Urine Mucus (None) /hpf Urine Osmolality 721 (50-1400) mosm/kg Disposition Clinical Impression: Abnormal laboratory test, Normal physical exam Disposition: HOME SELF-CARE Condition: Good Instructions (If sedation given, give patient instructions): Dehydration (ED) Additional Instructions: Please use medication as discussed. Please follow-up with family doctor in the next 2 days.. Please return to emergency room if the symptoms increase or worsen or for any other concerns. Is patient prescribed a controlled substance at d/c from ED?: No Referrals: Dylan Hobson [Primary Care Provider] - 1-2 days Time of Disposition: 20:44
[2020-04-09 20:55] LABS: Amorphous Sediment,Urine Rare /hpf; Appearance,Urine Clear (Clear); Bacteria,Urine Rare /hpf; Bilirubin,Urine Negative (Negative); Blood,Urine Negative (Negative); Color,Urine Yellow; Glucose,Urine (UA) 3+ (Negative); Hyaline Casts,Urine 5 /lpf (0-2); Ketones,Urine Negative (Negative); Leukocyte Esterase,Urine Small (Negative); Mucus,Urine Rare /hpf; Nitrite,Urine Negative (Negative); PH, Urine 6.5 (5.0-8.0); Protein,Urine Negative (Negative); RBC,Urine 1 /hpf (0-5); Specific Gravity,Urine 1.021 (1.001-1.035); Squamous Epithelial Cell,Urine 2 /hpf (0-4); WBC,Urine 3 /hpf (0-5)
== END 2020-04-09 21:16 | disposition home or self-care (01) ==
LOC: EC 19:43
DX: R79.9 Abnormal finding of blood chemistry, unspecified (principal); F32.9 Major depressive disorder, single episode, unspecified; F41.9 Anxiety disorder, unspecified; E11.65 Type 2 diabetes mellitus with hyperglycemia; E78.5 Hyperlipidemia, unspecified; Z79.4 Long term (current) use of insulin; Z79.899 Other long term (current) drug therapy; Z88.8 Allergy status to other drugs, medicaments and biological substances; Z91.030 Bee allergy status; Z95.5 Presence of coronary angioplasty implant and graft
CPT/HCPCS: 36415; 80053; 81001; 82310; 83935; 84133; 84300; 85025; 99283

== ENCOUNTER → 2020-10-23 | Outpatient (CLI) | payer OTHER ==
[2020-10-23 21:32] LABS: African American GFR (CKD) 77.8 (60.0-200.0); Anion Gap 10.9 mmol/L (4.00-12.00); BUN/Creat Ratio 16.67 Ratio (12.00-20.00); Calcium 9.2 mg/dL (8.7-10.3); Carbon Dioxide 27.1 mmol/L (21.6-31.8); Non-African American GFR(CKD) 67.1 (60.0-200.0); Potassium 4.5 mmol/L (3.5-5.5)
[2020-10-23 22:57] LABS: Hemoglobin A1C 6.3 % (4.0-6.0)
== END | disposition home or self-care (01) ==
LOC: LABWHC1 10:44
PROVIDERS: ATTEND Family Medicine
DX: I10 Essential (primary) hypertension (principal); E11.65 Type 2 diabetes mellitus with hyperglycemia
CPT/HCPCS: 36415; 80048; 83036

== ENCOUNTER → 2021-07-16 | Outpatient (CLI) | payer MEDICARE, OTHER ==
--- NOTE | 2021-07-16 16:44 | XR ---
EXAMINATION TYPE: XR lumbar spine 2 or 3V DATE OF EXAM: 07/16/2021 Comparison: None Clinical History: 65-year-old female M19.90, G62.9 Findings: 5 lumbar type vertebral bodies. Mild multilevel degenerative disc disease. Facet arthropathy mid to l ower lumbar spine. Grade 1 anterolisthesis L4-L5. Vertebral body heights are preserved. Impression: Mild degenerative disc disease. Facet arthropathy mid to lower lumbar spine with degenerative grade 1 anterolisthesis L4-L5. No vertebral compression collapse.
[2021-07-17 03:39] LABS: Rheumatoid Factor, Qnt <10 IU/mL (0-15)
[2021-07-17 20:58] LABS: DNA Double-Stranded Indetermin (NEGATIVE)
== END | disposition home or self-care (01) ==
LOC: RADXRMAIN 12:21
PROVIDERS: ATTEND Family Medicine
DX: M51.36 Other intervertebral disc degeneration, lumbar region (principal); M43.16 Spondylolisthesis, lumbar region
CPT/HCPCS: 36415; 72100; 84443; 85652; 86038; 86141; 86200; 86225; 86235; 86431

== ENCOUNTER → 2021-07-24 | Outpatient (CLI) | payer MEDICARE, OTHER ==
--- NOTE | 2021-07-27 11:43 | MM ---
Reason for exam: screening (asymptomatic). Last mammogram was performed 2 years and 10 months ago. History: Patient is postmenopausal. Physical Findings: A clinical breast exam by your physician is recommended on an annual basis and results should be correlated with mammographic findings. MG 3D Screening Mammo W/Cad Bilateral CC, MLO, and XCCL view(s) were taken. Prior study comparison: September 12, 2018, mammogram, performed at [facility]. There are scattered fibroglandular densities. Finding: There are indeterminate calcifications in the upper outer quadrant of the left breast. New finding since September 12, 2018. ASSESSMENT: Incomplete: need additional imaging evaluation, BI-RAD 0 RECOMMENDATION: Special view mammogram of the left breast. [facility] will attempt to contact patient to return for supplemental views.
== END | disposition home or self-care (01) ==
LOC: RADMAMWWP 10:31
PROVIDERS: ATTEND Family Medicine
DX: Z12.31 Encounter for screening mammogram for malignant neoplasm of breast (principal); Z78.0 Asymptomatic menopausal state
CPT/HCPCS: 77063; 77067

== ENCOUNTER → 2021-07-30 | Outpatient (CLI) | payer MEDICARE, OTHER ==
--- NOTE | 2021-07-30 14:47 | MM ---
Reason for exam: additional evaluation requested from abnormal screening. Last mammogram was performed less than 1 month ago. History: Patient is postmenopausal. Physical Findings: Nurse did not find any significant physical abnormalities on exam. MG 3D Work Up W/Cad LT CC with magnification, LM with magnification, and ML view(s) were taken of the left breast. Prior study comparison: July 24, 2021, bilateral MG 3d screening mammo w/cad. September 12, 2018, mammogram, performed at [facility]. There are scattered fibroglandular densities. The questioned central upper outer quadrant calcifications become much less apparent on magnification views. Two round benign calcifications are again seen. 6 month follow up recommended. These results were verbally communicated with the patient and result sheet given to the patient on 07/30/21. ASSESSMENT: Probably benign, BI-RAD 3 RECOMMENDATION: Follow-up diagnostic mammogram of the left breast in 6 months.
== END | disposition home or self-care (01) ==
LOC: RADMAMWWP 13:32
PROVIDERS: ATTEND Family Medicine
DX: R92.1 Mammographic calcification found on diagnostic imaging of breast (principal); Z78.0 Asymptomatic menopausal state
CPT/HCPCS: 77065; G0279; 77061

== ENCOUNTER → 2021-10-26 | Outpatient (CLI) | payer MEDICARE, OTHER ==
[2021-10-26 19:08] LABS: C Reactive Protein, High Sens 0.362 mg/L (0.000-3.000)
[2021-10-26 19:16] LABS: Basophils # (A) 0.03 X 10*3/uL (0.00-0.10); Basophils % (A) 0.6 %; Eosinophils # (A) 0.08 X 10*3/uL (0.04-0.35); Eosinophils % (A) 1.6 %; HCT 43.6 % (37.2-46.3); HGB 14.3 g/dL (12.0-15.0); Lymphocytes # (A) 1.29 X 10*3/uL (0.90-5.00); MCH 29.8 pg (27.0-32.0); MCHC 32.8 g/dL (32.0-37.0); MCV 90.8 fL (80.0-97.0); Mean Platelet Volume 11.5 fL (9.5-12.2); Neutrophils # (A) 3.15 X 10*3/uL (1.80-7.70); Neutrophils % (A) 63.4 %; Platelet Count 231 X 10*3/uL (140-440); RDW 13.2 % (11.5-14.5); WBC 4.97 X 10*3/uL (4.50-10.00)
[2021-10-26 19:24] LABS: ALT 25 U/L (8-44); AST 30 U/L (13-35); African American GFR (CKD) 77.2 (60.0-200.0); Albumin 4.9 g/dL (3.8-4.9); Albumin/Globulin Ratio 2.23 (1.60-3.17); Alkaline Phosphatase 114 U/L (41-126); BUN/Creat Ratio 20.22 Ratio (12.00-20.00); Blood Urea Nitrogen 18.2 mg/dL (9.0-27.0); Calcium 9.8 mg/dL (8.7-10.3); Carbon Dioxide 23.3 mmol/L (20.0-27.5); Chloride 100 mmol/L (96-109); Globulin 2.2 g/dL (1.6-3.3); Glucose 170 mg/dL (70-110); Non-African American GFR(CKD) 66.6 (60.0-200.0); Potassium 4.7 mmol/L (3.5-5.5); Rheumatoid Factor, Qnt <10 IU/mL (0-15); Sodium 138 mmol/L (135-145); Total Protein 7.1 g/dL (6.2-8.2)
[2021-10-26 20:30] LABS: Cyclic Citrull Pep IgG Unit <0.5 U/mL; Cyclic Citrullinated Pep IgG NEGATIVE (NEGATIVE); DNA Double-Stranded Indetermin (NEGATIVE)
[2021-10-26 21:05] LABS: Erythrocyte Sedimentation Rate 9 mm/Hr (0-30)
== END | disposition home or self-care (01) ==
LOC: LABWHC1 10:55
PROVIDERS: ATTEND Family Medicine
DX: E11.65 Type 2 diabetes mellitus with hyperglycemia (principal); R29.6 Repeated falls; G57.90 Unspecified mononeuropathy of unspecified lower limb; R41.3 Other amnesia; Z79.4 Long term (current) use of insulin; I10 Essential (primary) hypertension; F32.A Depression, unspecified; M19.90 Unspecified osteoarthritis, unspecified site; G62.9 Polyneuropathy, unspecified; R26.81 Unsteadiness on feet; M48.00 Spinal stenosis, site unspecified
CPT/HCPCS: 36415; 80053; 82607; 82746; 83036; 84425; 84443; 85025; 85652; 86038; 86141; 86200; 86225; 86431

== ENCOUNTER → 2021-11-06 | Outpatient (CLI) | payer MEDICARE, OTHER ==
--- NOTE | 2021-11-06 17:38 | MR ---
EXAMINATION TYPE: MR brain wo/w con DATE OF EXAM: 11/06/2021 COMPARISON: NONE HISTORY: Frequent falls, memory loss. TECHNIQUE: Multiplanar, multisequence images of the brain and brainstem is performed without and with IV contras t, utilizing 9 mL intravenous Gadavist . FINDINGS: Diffusion weighted images demonstrate no evidence of a recent infarct or other diffusion ab normality. There is mild ventricular and sulcal prominence. There are scattered focal and confluent areas of T2 hyperintensity seen throughout the white matter bilaterally. Midline structures demonstrate normal morphology. The craniocervical junction appears within normal limits. Post contrast images demonstrate suspected tiny 4 mm incidental meningioma along the anterio r falx axial image 19. The dural venous sinuses appear patent. The visualized sinuses are clear and t he globes are intact. Patchy fluid signal left mastoid air cells. IMPRESSION: Mild diffuse cerebral atrophy and mild/moderate chronic small vessel ischemic change. Pos sible mild left-sided mastoiditis, correlate clinically.
== END | disposition home or self-care (01) ==
LOC: RADMRIMAIN 14:54
PROVIDERS: ATTEND Family Medicine
DX: I67.82 Cerebral ischemia (principal); G31.89 Other specified degenerative diseases of nervous system
CPT/HCPCS: 70553; A9585

== ENCOUNTER → 2023-01-19 | Outpatient (CLI) | payer MEDICARE, OTHER ==
--- NOTE | 2023-01-19 12:57 | CA ---
Stress Echo Report Oriana Gallo Age: 67 Gender: F : 1955 Exam Date: 01/19/2023 09:38 Exam Location: [place] [facility] Ht (in): 70 Wt (lb): 200 Ordering Physician: Derrick Churchill MD Referring Physician: ALYCE,, Valet Parking Attendant: Mary De Souza RDCS Technologist Procedure CPT: Indication: R68.89 ICD-9 Codes: Rhythm: Patient History: Post PTCA, Family history, Diabetes mellitus, Hypertension, Dyspnea/SOB Cardiac Medications: Medications in past 24 hours: Contrast: Stress Results Protocol: Wilberto Total dose(mL): Exercise Duration (min:sec): 1:[address] Depression (mm): Angina Score: Can Score: METS: 2.4 Resting HR: 100 Resting BP: 146 / 92 Peak HR: 139 Peak BP: 216 / 88 Max Predicted HR: 153 91 % Max Predicted HR Target HR: 130 Double Product: [id number] Stress Summary: The patient's target heart rate was achieved BP Response: Abnormal increase in BP during/after stress Reason for Termination: Reached target heart rate or work-load, Maximal effort/unable to continue Cardiac Symptoms: Dyspnea ECG Analysis Resting ECG: Stress ECG: Arrhythmia: Echo Analysis Resting Echo: Peak Echo Analysis: MEASUREMENTS (Male/Female) Normal Values CONCLUSIONS Poor exercise tolerance. The patient exercised for 1 minute and 16 seconds Normal EKG and echocardiogram in response to exercise Dr. Gm Lemus MD (Electronically Signed) Final Date: 19 January 2023 12:56
== END | disposition home or self-care (01) ==
LOC: RADNMMAIN 09:05
PROVIDERS: ATTEND Family Medicine
DX: R68.89 Other general symptoms and signs (principal); I10 Essential (primary) hypertension; E11.9 Type 2 diabetes mellitus without complications
CPT/HCPCS: 93351

== ENCOUNTER 2023-06-15 10:38 | Day surgery (SDC) | payer MEDICARE, OTHER ==
[~2023-06-15 10:38] MED LIST: LACTATED RINGERS 1,000 ML IV SCH; LIDOCAINE 1% (10MG/ML) FOR IV START INTRADERMA PRN
[2023-06-15 12:06] LABS: Glucose,Whole Blood 153 mg/dL (70-110)
[2023-06-15] MEDS ORDERED: PROPOFOL 10 MG/ML 20 ML VIAL IV ONE (12:41)
--- NOTE | 2023-06-15 12:50 | P.PCN ---
Date of Procedure: 06/15/23 Procedure(s) Performed: BRIEF HISTORY: Patient is a 67-year-old, pleasant, white female scheduled for an elective upper endoscopy as a part of evaluation of intermittent nausea vomiting. For the last several months duration. She is been on pantoprazole 40 mg twice daily with no help. Recently was started on Carafate 1 g 3 times daily with some improvement in symptoms. PROCEDURE PERFORMED: Esophagogastroduodenoscopy with biopsy. PREOPERATIVE DIAGNOSIS: Intermittent nausea vomiting and chronic heartburn. IV sedation per anesthesia. PROCEDURE: After informed consent was obtained, the patient was brought into the endoscopy unit. IV sedation was administered by Anesthesia under continuous monitoring. Initially the Olympus GIF-140 video endoscope was inserted into the mouth. Esophagus intubated without any difficulty. It was gradually advanced into the stomach and duodenum and carefully examined. The bulb and the second part of the duodenum appeared normal. There was a 3 mm duodenal polyp in the second part of the duodenum that was biopsied. The scope at this time was withdrawn to the stomach, adequately insufflated with air, and upon careful examination, mucosa of the antrum had mild gastritis and biopsies were done from this area. Mucosa of the, body, cardia and the fundus appeared normal. The scope was then withdrawn into the esophagus. Small hiatal hernia noted. The GE junction was located at 36 cm from the incisors. The esophagus appeared normal. There were no erosions or ulcerations seen and the patient tolerated the procedure well. IMPRESSION: 1. 3 mm duodenal polyp status post cold biopsy. 2. Mild antral gastritis 3. Small hiatal hernia but no evidence of esophagitis or Cope's esophagus. RECOMMENDATIONS: The findings of this examination were discussed with the patient well as her family. She was advised to follow with the biopsy results. In the meantime she'll continue with Protonix 40 mg twice daily as well as Carafate 1 g 3 times daily as needed and follow antireflux measures. She will follow up in office in 3-4 weeks..
[2023-06-15] MEDS ORDERED: IV FLUID CONTINUATION 1,000 ML IV ONE (12:54)
[2023-06-15 13:17] VITALS: TEMP 98.5
[2023-06-15 13:25] VITALS: BP 172/81; PULSE 73; RESP 19
== END 2023-06-15 14:15 | disposition home or self-care (01) ==
LOC: ORWHC2ENDO 10:38
PROVIDERS: ATTEND Internal Medicine Gastroenterology
DX: K29.50 Unspecified chronic gastritis without bleeding (principal); K44.9 Diaphragmatic hernia without obstruction or gangrene; K31.7 Polyp of stomach and duodenum; K20.90 Esophagitis, unspecified without bleeding; I25.10 Atherosclerotic heart disease of native coronary artery without angina pectoris; I10 Essential (primary) hypertension; E78.5 Hyperlipidemia, unspecified; M19.90 Unspecified osteoarthritis, unspecified site; K74.60 Unspecified cirrhosis of liver; J30.2 Other seasonal allergic rhinitis; F41.9 Anxiety disorder, unspecified; F32.A Depression, unspecified; E11.9 Type 2 diabetes mellitus without complications; Z79.51 Long term (current) use of inhaled steroids; Z79.4 Long term (current) use of insulin; Z79.899 Other long term (current) drug therapy; Z91.030 Bee allergy status; Z88.8 Allergy status to other drugs, medicaments and biological substances; Z79.1 Long term (current) use of non-steroidal anti-inflammatories (NSAID)
CPT/HCPCS: 88305; 43239; J2704